=== PATIENT | female | born 1975 | race Caucasian/White ===

== ENCOUNTER 2022-11-12 01:12 | Day surgery (SDC) | payer OTHER, SELFPAY ==
[2022-11-10 09:58] VITALS: BMI 43.2
--- NOTE | 2022-11-10 10:25 | PC.NURSE ---
Report to the Outpatient Waiting Room, entrance under the green pavilion located off [facility], at time __1015 on date ___[id number]____. Planned Procedure Time: __1215 . Time changes happen often and if your time is changed the preop area will call you the afternoon before. - You and your visitor will be asked to self-screen and do not enter if you have any COVID symptoms. - A mask is optional within the hospital at this time. Patients may have clear liquids (water, carbonated beverages, clear teas, apple juice) until 3 hours prior to surgery with a maximum of 20 ounces. - No food from midnight until time of surgery Take the following medications with a SIP of water the morning of surgery: Prednisone, Pain pill if needed, antibiotic (if still current) DO NOT STOP ANY OF YOUR OTHER PRESCRIPTION MEDICATIONS PRIOR TO SURGERY ?EXCEPT THE FOLLOWING Medications to discontinue per physician Toradol Date to take last dose last taken on 11-04-22 (per patient) Please no make-up, nail azeri, hairspray, perfume, deodorant, or body powder the day of surgery. No jewelry (including any body piercings) or valuables the day of surgery, leave them at home. Please take a shower or bath the night before, or the morning of, surgery with an antibacterial soap. Wear comfortable, loose fitting clothing. Children are encouraged to wear pajamas. - Jewelry must be removed prior to entering the operating room. Rings and piercings that are not removed may be cut off. - The hospital will not accept responsibility for valuables. - Please leave all valuables, including medications, at home the day of surgery. If you are going home after surgery, a licensed certified driver examiner must drive you home. - NO public transportation without another adult if you receive anesthesia. - We recommend that an adult stay with you for 24 hours following discharge. - We also recommend that you do not drive, make important decision, drink alcoholic beverages, or take any drugs that were not prescribed by your health care provider for at least 24 hours after your discharge time. Follow any additional instructions given to you from your surgeon. If you or anyone in your household have experienced Covid symptoms in the past week, please notify your surgeon or the nurse liaison at the phone number below for possible testing. Telephone instructions given to ____Amy Porter and asked if any additional questions and then verbalized understanding. Patient advised to call surgeon office or pre surgery nurse liaison [phone] if any additional questions.
[2022-11-12] VITALS (8 sets, daily range): BP systolic 141–161; BP diastolic 68–87; PULSE 47–70; RESP 15–20; TEMP 36.6; O2SAT 98–100
--- NOTE | ~2022-11-12 | XR_ITS ---
EXAMINATION: XR fluoroscopy no charge DATE: 11/12/2022 11:28 INDICATION: Retrograde ureteral stent removal and stone removal TECHNIQUE: 3 fluoroscopic images of the abdomen and pelvis were obtained during procedure performed margaret Perdue. Radiologist was not present for the imaging or procedure. The amount of fluoroscopy luma e used during this procedure was 0.2 minutes. COMPARISON: None. FINDINGS: Initial images demonstrate a left internal ureteral stent in expected position with loops formed in t he expected locations of the bladder and left renal pelvis. Final image demonstrates a catheter and w analisa advanced into the left ureter. No stones identified. IMPRESSION: 1. Fluoroscopy utilized during urologic procedure. See procedure note for further detail. Reviewed, dictated and finalized at location A. IMPRESSION: 1. Fluoroscopy utilized during urologic procedure. See procedure note for furth er detail.
--- NOTE | 2022-11-12 06:17 | WPDHPUPDATE1 ---
History and Physical Update Update Date/Time: 11/12/22 06:17 History and Physical has been reviewed, including an updated exam of the patient. There are NO changes in the patient's condition. Risks, benefits, and alternatives have been discussed and questions answered. Patient agrees to proceed with procedure.
[2022-11-12] MEDS: LACTATED RINGERS 1,000 ML 30 ML IV CONT (09:55)
--- NOTE | 2022-11-12 10:05 | P.PNAN_ITS ---
Anes - Initial Pre Proc Eval Procedure: Operation Date: 11/12/22 11:15 Proposed Procedures p Cystoscopy, Left Ureteroscopy, Left Stone Extraction, Left Stent Exchange, Left Retrograde Pyelogram, Left Holmium Laser Lithotripsy - Rufino Perdue MD Date/Time: 11/12/22 10:05 Surgeon: Rufino Perdue MD Pre Op Diagnosis: Lt Ureteral Stone Patient Data Age: 47 Gender: F Height: 1.64 m Weight: 115.9 kg Allergies Allergy/AdvReac Type Severity Reaction Status Date / Time strawberry Allergy Severe Anaphylaxis Verified 11/12/22 09:39 adhesive tape AdvReac Unknown Blister Verified 11/12/22 09:39 azathioprine [From Imuran] AdvReac Unknown Vomiting Verified 11/12/22 09:39 Home Medications Medication Instructions Recorded Confirmed Type cefdinir 300 mg capsule 300 mg PO BID 11/10/22 11/12/22 History hydrocodone 5 mg-acetaminophen 325 1 tablet PO Q6H PRN Pain 11/10/22 11/12/22 History mg tablet hydroxychloroquine 200 mg tablet 400 mg PO DAILY 11/10/22 11/12/22 History ketorolac 10 mg tablet 10 mg PO Q6H PRN Pain 11/10/22 11/10/22 History lansoprazole 30 mg capsule,delayed 30 mg PO DAILY 11/10/22 11/12/22 History release olmesartan 20 mg tablet 20 mg PO DAILY 11/10/22 11/12/22 History ondansetron 4 mg disintegrating 4 mg translingual PRN PRN Nausea 11/10/22 11/12/22 History tablet prednisone 5 mg tablet 5 mg PO DAILY 11/10/22 11/12/22 History solifenacin 10 mg tablet 10 mg PO DAILY 11/10/22 11/12/22 History Patient hx anesthesia problems: none Family hx anesthesia problems: none Results Review: All pre-operative results and documents have been reviewed as part of the pre- operative evaluation. [facility] Past Medical History Medical History (Updated 11/12/22 @ 10:06 by Roberto Hernandez MD) Morbid obesity HUMERA (obstructive sleep apnea) Social History Social History Smoking packs per day: 1 Smoking cigarettes per day: 20.0 Years smoked: 20 Smoking pack-years: 20.00 Smoking status: Current every day smoker Tobacco type: cigarettes Second hand tobacco smoke exposure: Yes Alcohol intake: current Alcohol use details: 1 per year Substance use: never Substance use type: does not use Living arrangements: with family Spiritual care concerns: No Anes - Eval Final PreProcedure Day of Procedure 11/12/22 10:05 Patient weight: morbidly obese Heart: regular rate and rhythm Lungs: clear to auscultation Airway: Mallampati scale class II Neurological: alert and oriented Last oral intake: >/= 8 hours ASA classification: III Emergent: no Anesthetic plan: proceed Anesthesia type and monitoring: general LMA and standard monitoring Results Review: All pre-operative results and documents have been reviewed as part of the pre- operative evaluation. Informed Consent: The patient's anesthetic plan and its attendant risks and benefits were discussed with the patient/family/POA. Questions were solicited and answers provided to the satisfaction of the patient/family/POA.
[2022-11-12] MEDS: ceFAZolin 2 GM/D5W 50 ML 2 GM/50 ML BAG IVPB (10:58)
[2022-11-12] MEDS: KETOROLAC 30 MG/ML VIAL (*BKC) IV PUSH (11:18)
--- NOTE | 2022-11-12 11:20 | W.PM.PROC2 ---
Procedure Note - Detailed Date of Procedure 11/12/22 Pre-op Diagnosis Left Ureteral Stone Post-op Diagnosis Same Procedure Performed Cystoscopy, left ureteral stent removal, left ureteroscopy with stone extraction Surgeon Rufino Perdue MD Anesthesia General Description of Procedure Patient is brought to the operative suite where she has prepped draped in routine sterile fashion while in dorsal lithotomy position. 2% xylocaine jelly was introduced intraurethrally and general anesthesia was administered per the anesthesia department. Cystoscopy is undertaken with a 19 F rigid cystoscope. Tip of the indwelling stent is grasped and it was with ease. A 0.035 in glidewire was advanced in the left pelvis. The distal ureter dilated with an 8 F 10 F dilator. Ureteroscopy was undertaken with a short tapered semi-rigid ureteral scope. Her 5 mm stone is found in her left mid to distal ureter. It is extracted with a 1.9 F disposable stone basket with ease without the need for laser lithotripsy. I repeated ureteroscopy into the proximal ureter and saw no additional stones. Because of the ease of this manipulation and minimal apparent ureteral edema I opted not to replace her stent. Scopes and wires removed she was taken to the recovery having tolerated this well Drains No Packing No Pathology Yes Complications No immediate complications Condition Stable
[2022-11-12] MEDS: LIDOCAINE HCL 2% GEL UROJET 10 ML PKG MUCOUS MEM (11:21)
[2022-11-12] MEDS: ONDANSETRON INJ 4 MG/2 ML VIAL IV PUSH (12:09)
[2022-11-12] MEDS: oxyCODONE HCL (*CRX) 5 MG TAB IR PO (12:21)
== END 2022-11-12 13:07 | disposition home or self-care (01) ==
PROVIDERS: PCP Internal Medicine; Visit Provider Urology
PROC: (CPT 52352; principal; 2022-11-12 11:15)
DX: N20.1 Calculus of ureter (principal); G47.33 Obstructive sleep apnea (adult) (pediatric); E66.01 Morbid (severe) obesity due to excess calories; Z68.41 Body mass index [BMI] 40.0-44.9, adult; F17.210 Nicotine dependence, cigarettes, uncomplicated
CPT/HCPCS: 52352; 82365; 88300; 99199; A9270; C1769; J0690; J1100; J1885; J2250; J2405; J2704; J3010; J7120

== ENCOUNTER 2023-05-25 11:13 | Outpatient (CLI) | payer OTHER, SELFPAY ==
--- NOTE | ~2023-05-25 | XR_ITS ---
EXAM: XR abdomen/kub 1V DATE: 05/25/2023 11:30 HISTORY: LEFT URETERAL STONE . COMPARISON: X-ray fluoroscopy 11/12/2022. FINDINGS: Clear lung bases. Normal bowel gas pattern. No organomegaly. Punctate calcifications proje ct over the bilateral renal shadows. Mild degenerative changes in the spine. Bilateral hip osteoarthr itic arthritis. Mild osteitis pubis. IMPRESSION: Punctate calcification is project over the bilateral renal shadows, which may represent r enal calculi or artifact from bowel content. Reviewed, dictated and finalized at location K. OUT OPERATOR IMPRESSION: Punctate calcification is project over the bilateral renal shadows, which may represent renal calculi or artifact from bowel content.
== END 2023-05-25 11:14 | disposition home or self-care (01) ==
LOC: ANHIMG 11:17
PROVIDERS: PCP Internal Medicine; Visit Provider Urology
DX: N20.1 Calculus of ureter (principal)
CPT/HCPCS: 74018

== ENCOUNTER 2023-09-03 12:16 | Outpatient (CLI) | payer OTHER, SELFPAY ==
--- NOTE | ~2023-09-03 | CT_ITS ---
Non-contrast CT scan of the Abdomen and Pelvis Clinical indication: Left ureteral stone Technique: 2.5 mm axial scans were obtained through the abdomen and pelvis without intravenous or or al contrast. Dose reduction technique was used on this scan by utilizing automated exposure control a nd iterative reconstruction technique. The dose-length product (DLP) was 1081.93 mGy-cm. Findings: Images through the lung bases reveal no abnormalities. There are punctate bilateral nonobstructing renal stones. No ureteral stone or hydronephrosis on eith er side. The liver, spleen, pancreas, gallbladder, and adrenals appear normal. There is no aortic aneurysm. There is no evidence of bowel obstruction. Images through the pelvis were performed. There is no evidence of ascites or lymphadenopathy. Urinary bladder unremarkable. Patient is post hysterectomy. No pelvic mass seen. Impression: Punctate bilateral nonobstructing renal stones. No ureteral stone or hydronephrosis on either side. Reviewed, dictated and finalized at [facility]. Impression: Punctate bilateral nonobstructing renal stones. No ureteral stone or hydronephr osis on either side.
== END 2023-09-03 12:17 | disposition home or self-care (01) ==
LOC: ANHIMG 12:18
PROVIDERS: PCP Internal Medicine; Visit Provider Urology
DX: N20.1 Calculus of ureter (principal); N20.0 Calculus of kidney
CPT/HCPCS: 74176

== ENCOUNTER 2024-10-25 14:15 | Outpatient (CLI) | payer OTHER, SELFPAY ==
--- OUTSIDE RECORDS SUMMARY | 2024-10-25 14:26 | XMS_ITS | Clinical Summary ---
Author Organization [facility] Address [address] [place] [id number] Care Team Providers Care Splicing Technician Name Role Phone Paulino Souza MD Unavailable [phone] Lam Nicholson MD Primary Care Provi sriram Allergies Active Allergy Reactions Criticality Noted Date Comments Adhesive Tape-Silicones Blisters High 06/03/2015 Red and pulled off skin Azathioprine Nausea & Vomiting Low 07/16/2017 [place] Hives Medium 05/30/2015 Itching and hives Medications cholecalciferol (VITAMIN D-3) 5,000 unit tablet Take 1 tablet (5,000 Units total) by mouth daily Active lansoprazole (PREVACID) 30 mg capsule Take 1 capsule (30 mg total) by mouth daily Active ibuprofen (ADVIL,MOTRIN) 400 mg tabletIndications: stop 5 days before surgery Take 1 tablet (400 mg total) by mouth every 6 (six) hours as needed for pain Active traMADol (ULTRAM) 50 mg tablet Take 1 tablet (50 mg total) by mouth 01/07/20 Active harsobhmpgdb-Mi-iw on-minerals tablet Take by mouth Active golimumab (Simponi ARIA) 12.5 mg/mL solution Infuse into a venous catheter Active olmesartan (BENICAR) 20 mg tablet Take 1 tablet (20 mg total) by mouth daily Active rosuvastatin (CRESTOR) 5 mg tablet Take 1 tablet (5 mg total) by mouth daily 06/06/19 25 Active ondansetron ODT (ZOFRAN-ODT) 4 mg disintegrating tablet Take 1 tablet (4 mg total) by mouth daily 30 tablet 5 08/29/19 25 Active triamcinolone (KENALOG) 0.1 % cream Apply topically 2 (two) times a day as needed 025 Discontin ued(Patie nt Reported) predniSONE (DELTASONE) 1 mg tablet Take 2 tablets (2 mg) by mouth daily 06/27/19 25 025 Discontin ued(Patie nt Reported) Active Problems Problem Noted Date Diagnosed Date Mixed hyperlipidemia 06/26/2024 Assessment & Plan (06/26/2024 10:22 AM CDT): Orders: Lipid panel; Future Morbid obesity with BMI of 45.0-49.9, adult 09/2024 Assessment & Plan (06/26/2024 10:22 AM CDT): She would benefit from weight loss and hopefully that can improve once she is off prednisone. Vitamin D deficiency 06/26/2024 Assessment & Plan (06/26/2024 10:22 AM CDT): History of vitamin-D deficiency. Orders: Vitamin D 25 hydroxy; Future Sinus bradycardia 10/30/2022 Assessment & Plan (10/30/2022 1:47 PM CDT): The patient has asymptomatic sinus bradycardia with with a normal echocardiogram. No further cardiac evaluation is indicated at this time. Primary hypertension 10/30/2022 Assessment & Plan (06/26/2024 10:22 AM CDT): Orders: Comprehensive metabolic panel; Future Assessment & Plan (10/30/2022 1:47 PM CDT): Controlled. Continue Benicar. Ureteral stone 10/29/2022 Renal colic on left side 10/22/2022 Hydronephrosis concurrent wi th and due to calculi of kidney and ureter 10/22/2022 Rheumatoid arthritis of mult iple sites without rheumatoid factor 10/16/2016 Assessment & Plan (06/26/2024 10:22 AM CDT): High risk medication use 10/16/2016 Leukocytosis 10/16/2016 Assessment & Plan (06/26/2024 10:22 AM CDT): Mild leukocytosis is likely secondary to chronic prednisone use. No signs of infection at this time. Cardiovascular disease 12/15/2011 Overview (06/24/2016): CIRCULATORY DISEASE NEC Resolved Problems Problem Noted Date Diagnosed Date Resolved Date Hyperglycemia 06/26/2024 09/29/2024 Assessment & Plan (06/26/2024 10:22 AM CDT): She does have a history of hyperglycemia seen on prior labs so I will check A1c. Orders: Hemoglobin A1c; Future Palpitations 06/26/2024 09/29/2024 Assessment & Plan (06/26/2024 10:22 AM CDT): She reports occasional palpitations so I will check magnesium level. Orders: Magnesium; Future Dizziness 05/07/2023 12/31/2023 Assessment & Plan (05/07/2023 12:13 PM SECURITY SERVICES MANAGER): Probably vertigo. Recommend 14 day Bardy D monitor to assess for arrhythmia Rec: meclizine 25 mg tid. Pyelonephritis 10/22/2022 12/31/2023 Gram negative sepsis 10/22/2022 024 Right thigh pain 10/16/2016 12/31/2023 Sprain of anterior talofibul ar ligament of right ankle 09/15/2016 12/31/2023 Contusion of ankle 09/15/2016 BMI 40.0-44.9, adult 09/15/2016 024 Morbid obesity due to excess calories 09/15/2016 06/26/2024 Rheumatoid arthritis 03/07/2013 024 Overview (06/26/2016): Rheumatoid Arthritis Drug therapy finding 03/07/2013 024 Overview (06/27/2016): Therapeutic Drug Monitoring Encounters Date Type Department Care Team Description 10/06/2024 7:15 AM CDT Lab [facility] [address] [place] [address] Arthralgia, unspecified joint 10/06/2024 Results Follow-Up [facility] Primary Care at [address] [place] [address] Katie Roche, NOHEMI Cortisol 10/02/2024 Results Follow-Up [facility] Rheumatology [address] [place] [address] Office [address] [place] [phone] Laurence Carranza NP XR Sacroiliac Joints Less than 3 Views, Erythrocyte sedimentation rate, CRP (acute phase), Additional followed-up results: 4 09/29/2024 10:40 AM CDT Lab [facility] [address] [place] [facility] [place] [place] [address] Rheumatoid arthritis 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) 09/29/2024 9:53 AM CDT - 09/29/2024 11:59 PM CDT Hospital Encounter [facility] Imaging [address] [place] [id number] Rheumatoid arthritis 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) Discharge Disposition: Discharge to home or self care 09/29/2024 9:00 AM CDT Office Visit [facility] Rheumatology [address] [facility] Office Building [address] [place] [phone] Laurence Carranza NP Rheumatoid arthritis 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) (Primary Dx); High risk medication use 09/26/2024 Telephone [facility] Gastroenterology at [address] [place] [phone] Krissy Johnson GI Appointment Reschedule 09/25/2024 9:30 AM CDT Infusion [facility] Infusion Therapy [address] [place] [address] [address] [place] [address] Rheumatoid arthritis of multiple sites without rheumatoid factor (HCC) (Primary Dx) 08/06/2024 Results Follow-Up [facility] Primary Care at [address] [place] [address] Lam Nicholson MD Dexa Axial Skeleton Bone Density 1 Or 2 Site 08/04/2024 7:36 AM CDT - 08/04/2024 11:59 PM CDT Hospital Encounter [facility] Center [address] [place] [address] Postmenopausal estrogen deficiency Discharge Disposition: Discharge to home or self care 07/28/2024 9:30 AM CDT Infusion [facility] Infusion Therapy [address] [facility] [address] [place] [address] Rheumatoid arthritis of multiple sites without rheumatoid factor (HCC) (Primary Dx) from Last 3 Months Immunizations Immunization Administration Dates Next Due Influenza, Quadrivalent, Spl it, Preservative Free, Intramuscular 12/30/2018 Influenza, Trivalent, IM ([facility]isha) 01/10/2016 Surgical History Surgery Date Site/Laterality Comments TONSILLECTOMY Tonsillectomy APPENDECTOMY 03/22/1999 - 03/21/2000 Appendectomy VAGINAL HYSTERECTOMY 03/22/2001 - 03/21/2002 Hysterectomy, vaginal OTHER SURGICAL HISTORY 03/22/1999 - 03/21/2000 laparoscopic with appendectomy PARTIAL HYSTERECTOMY 03/22/2001 - 03/21/2002 Partial hysterectomy OTHER SURGICAL HISTORY 03/22/2005 - 03/21/2006 excision of ganglian cyst on left wrist TONSILLECTOMY 03/22/1980 - 03/21/1981 Tonsillectomy PORTACATH PLACEMENT Removal and placement Right Upper Chest FOOT SURGERY 06/20/2017 - 07/19/2017 Left HYSTERECTOMY 03/22/2001 - 03/21/2002 Medical History Medical History Date Comments Hypertension Hypertension Hyperlipidemia Hyperlipidemia Gastroesophageal reflux disease GERD Hx Other Medical rheumatoid arth ritis; Comments: VENANCIO 10/10/2013 - Hypertension Hypertension Hx Other Medical hyperlipidemia Hx Other Medical partial hystere ctomy Hx Other Medical ganglion cyst r emoval Hx Other Medical herniated lumba r disc PONV (postoperative nausea and vomiting) Rheumatoid arthritis (HCC) Rheum atoid arthritis Smoking Current smoker Family History Medical History Relation Name Comments Diabetes Maternal Grandfather Diabete s mellitus; Heart attack Maternal Grandfather Myocard ial infarction; Hypertension Mother Hypertension; Hypertension Other 1 Family history of Hypertension; Other Other 2 Family history of RA - mother; Lung cancer Paternal Grandmother Cancer, lung; Throat cancer Paternal Grandmother Cancer , throat; Breast cancer Neg Hx Endometrial cancer Neg Hx Ovarian cancer Neg Hx Thyroid cancer Neg Hx Relation Name Status Comments Maternal Grandfather Mother Other 1 Other 2 Paternal Grandmother Social History Tobacco Use Types Packs/Day Years Used Date Smoking Tobacco: Every Day Cigarettes 0.5 20 Smokeless Tobacco: Never Tobacco Cessation:Ready to Q uit: Not Asked; Counseling Given: Not Answered Alcohol Use Standard Drinks/Week Comments Not Currently 0 (1 standard drink = 0.6 oz pur e alcohol) very rarely AUDIT-C Answer Date Recorded Q1: How often do you have a drink containing alc ohol? Monthly or less 10/22/2022 Q2: How many drinks containi ng alcohol do you have on a typical day when you are drinking? 1 or 2 10/22/2022 Q3: How often do you have si x or more drinks on one occasion? Never 10/22/2022 PHQ-2 Answer Date Recorded PHQ-2 Score 1 12/30/2018 Personal Safety Answer Date Recorded Have you ever been in or are you currently in a harmful physical or emotional relationship or is someone making you feel afraid or unsafe? Denies 10/22/2022 Comments No Sex and Gender Information Value Date Recorded Sex Assigned at Not on file Legal Sex Female 7:05 PM SECURITY SERVICES MANAGER Gender Identity Female 04/03/2020 10:14 AM SECURITY SERVICES MANAGER Sexual Orientation Straight 11/16/2023 2: 11 PM CDT Occupation Industry Job Start Date Job End Date rn Not on file Not on file Not on file Obstetrics History Para Term AB IAB SAB Ectopic Multiple Livin g Live Births 2 2 2 Date Outcome GA Total Labor Labor/2nd/3rd Weight Sex Type Anes PTL Jhoana A1 A5 Name Clin Term Term Last Filed Vital Signs Vital Sign Reading Time Taken Comments Blood Pressure 161/88 09/29/2024 9:07 AM CDT Pulse 58 09/29/2024 9:07 AM CDT Temperature 36.7 C (98.1 F) 09/29/2024 9:07 AM CDT Respiratory Rate 16 09/25/2024 9:25 AM CDT Oxygen Saturation 99% 09/29/2024 9:07 AM CDT Inhaled Oxygen Concentration - - Weight 122.7 kg (270 lb 8 oz) 09/29/2024 9:07 AM CDT Height 161 cm (5' 3.39) 09/29/2024 9:07 AM CDT Body Mass Index 47.33 09/29/2024 9:07 AM CDT Plan of Treatment Health Maintenance Due Date Last Done Comments Colon Cancer Screening-Colonoscopy 1974 DTaP/Tdap/Td Vaccine (1 - Tdap) 1985 Hepatitis B Screening 02/02/1992 Regular Well Visit/Exam 18-64 02/02/1992 Pneumococcal vaccine <65 (2 of 2 - PCV) 01/06/2012 01/05/2011 Depression Screening 12/30/2019 12/29/2018 Covid-19 Vaccine (5 - 2023-2 5 season) 2023 03/28/2021, 04/29/2020, 04/09/2020, Additional history exists Zoster Vaccine (1 of 2) 02/02/2024 Influenza Vaccine (#1) 2024 3, 01/01/2023, 01/02/2022, Additional history exists Breast Cancer Screening-Mammogram 01/30/2025 01/31/2024, 03/26/2022, 01/22/2021, Additional history exists Hepatitis C Screening Completed 02/05/2023 , 03/19/2022, 01/17/2020, Additional history exists Medical Devices Implanted Type Area Support Services Coordinator Device Identifier Shelf Expiration Date Model / Serial / Lot [employer] Jillian Contour Vl 6fr 22-30cm Taper Tip Bladder Albin Low Profile Stiff Latex Free [id number] - [id number] Implanted:Qty: 1 on 10/22/2022 by Rosanne Loza MD at [facility] Stent Left: Ureter [employer] Jillian [id number] 08/23/2026 [id number] / / [id number] Set Implant [employer] [place]ock Drill Guide Punch Tap Achilles Pack - [id number] Implanted:Qty: 1 on 07/16/2017 by Gracia Lang DPM at [facility] Left: Heel [employer] 10/19/2018 [id number] / / [id number] Procedures Procedure Name Priority Date/Time Associated Diagnosis Comments CORTISOL Routine 10/06/2024 7:25 AM CDT Arthralgia, unspecified joint EGFR Routine 09/29/2024 10:44 AM CDT Rheumatoid arthritis 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) DIFFERENTIAL AUTO Routine 09/29/2024 10: 44 AM CDT Rheumatoid arthritis 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) CBC WITH AUTO DIFFERENTIAL Routine 09/29/2024 10:44 AM CDT Rheumatoid arthritis 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) COMPREHENSIVE METABOLIC PANEL Routine 09/29/2024 10:44 AM CDT Rheumatoid arthritis 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) CRP (ACUTE PHASE) Routine 09/29/2024 10: 44 AM CDT Rheumatoid arthritis 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) ERYTHROCYTE SEDIMENTATION RATE Routine 09/29/2024 10:44 AM CDT Rheumatoid arthritis 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) XR SACROILIAC JOINTS LESS THAN 3 VIEWS Schedule Routine, Read Routine (OP Routine) 09/29/2024 10:19 AM CDT Rheumatoid arthritis 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) DEXA AXIAL SKELETON BONE DENSITY 1 OR MORE SITES Schedule Routine, Read Routine (OP Routine) 08/04/2024 7:58 AM CDT Postmenopausal estrogen deficiency SCREENING MAMMOGRAM BILATERAL W TURNER Schedule Routine, Read Routine (OP Routine) 01/31/2024 9:33 AM SECURITY SERVICES MANAGER Screening mammogram, encounter for HEPATITIS C RNA, QUANTITATIVE, PCR Routine 02/05/2023 10:13 AM SECURITY SERVICES MANAGER from Last 3 Months or Most Recently Relevant to Health Maintenance Results * Cortisol (10/06/2024 7:25 AM CDT) Cortisol 10.5 4.8 - 19.5 mcg/dl Comment: Interpretive Data Normal Range: 4.8 - 19.5 mcg/dL; Evening: Half of morning value. This analyte undergoes marked diurnal variation. Ranges indicated apply to morning specimens. Current interpretive data was last revised 2018. Testing performed by: [facility], [address] [place] [address]., [id number] Blood 10/06/2024 7:25 AM CDT 10/06/2024 9:21 AM CDT us Lam Nicholson MD LAB BLOOD ORDERABLE S Final Result Performing Organization Address City/State/ZIP [place] Phone Number XANDER LANDIN RANCHO [place] 1 [facility] Department [place] [address] * eGFR (09/29/2024 10:44 AM CDT) eGFR >90 >=60 mL/min/1. 73 m2 Comment: Interpretive Data Reference Interval Normal >/= 90 mL/min/1.73m2 Mildly decreased* 60 - 89 mL/min/1.73m2 Mildly to moderately decreased 45 - 59 mL/min/1.73m2 Moderately to severely decreased 30 - 44 mL/min/1.73m2 Severely decreased 15 - 29 mL/min/1.73m2 Kidney Failure < 15 mL/min/1.73m2 *Relative to young adult level Estimated glomerular filtration rate is determined by the 2020 CKD-EPI equation recommended by the National Kidney Foundation (A Unifying Approach to GFR Estimation: Recommendations of the NKF-ASK Task Force on Reassessing the Inclusion of Race in Diagnosing Kidney Disease, JASN 2020). The CKD-EPI equation should not be used for patients with unstable renal function and has not been validated in children and those over 70. Current interpretive data was last reviewed 2021. Blood 09/29/2024 10:4 4 AM CDT 09/29/2024 11:01 AM CDT us Laurence Carranza NP LAB BLOOD ORDERAB[place] [address] [address] [place] [address] * (ABNORMAL) Differential, auto (09/29/2024 10:44 AM CDT) Neutrophil abs 4.68 1.50 - 6.50 K/cumm Imm gran abs 0.03 0.00 - 0.10 K/cumm [facility] Lymphocyte abs 4.42(H) 0.80 - 3.30 K/cumm [facility] Monocyte abs 0.71 0.20 - 0.80 K/cumm [facility] Eosinophil abs 0.20 0.00 - 0.50 K/cumm [facility] Basophil abs 0.07 0.00 - 0.10 K/cumm [facility] Neutrophil pct 46.3 % X[facility]ER BHAGATCH Comment: Interpretive Data Percent cell count reference ranges are not reported, since discordance with absolute values may lead to misinterpretation of CBC data. Current Interpretive Data was last revised on 2017. Imm gran pct 0.3 % XANDER BA Comment: Interpretive Data Percent cell count reference ranges are not reported, since discordance with absolute values may lead to misinterpretation of CBC data. Current Interpretive Data was last revised on 2017. Lymphocyte pct 43.7 % X[facility]ER LIEBERMANCH Comment: Interpretive Data Percent cell count reference ranges are not reported, since discordance with absolute values may lead to misinterpretation of CBC data. Current Interpretive Data was last revised on 2017. Monocyte pct 7.0 % XANDER BA Comment: Interpretive Data Percent cell count reference ranges are not reported, since discordance with absolute values may lead to misinterpretation of CBC data. Current Interpretive Data was last revised on 2017. Eosinophil pct 2.0 % XANDER BA Comment: Interpretive Data Percent cell count reference ranges are not reported, since discordance with absolute values may lead to misinterpretation of CBC data. Current Interpretive Data was last revised on 2017. Basophil pct 0.7 % [facility] Comment: Interpretive Data Percent cell count reference ranges are not reported, since discordance with absolute values may lead to misinterpretation of CBC data. Current Interpretive Data was last revised on 2017. Blood 09/29/2024 10:4 4 AM CDT 09/29/2024 11:01 AM CDT Laurence Carranza OTHER SPATIAL SCIENTIST LAB BLOOD ORDER[place] [address] [facility] [place], [place] [id number] * (ABNORMAL) CBC with auto differential (09/29/2024 10:44 AM CDT) WBC 10.11(H) 3.80 - 9.90 K/cumm Hgb 14.9 11.9 - 15.5 g/dL [facility] Hct 43.1 35.6 - 45.5 % [facility] Plt 282 150 - 400 K/cumm [facility] MPV 10.8 9.1 - 12.3 fL [facility] RBC 4.62 3.90 - 5.20 M/cumm [facility] MCV 93.3 81.3 - 96.4 fL [facility] MCH 32.3 27.1 - 33.3 pg [facility] MCHC 34.6 32.3 - 35.7 g/dL [facility] RDW CV 13.1 11.1 - 14.9 % [facility] RDW SD 44.7 35.7 - 48.1 fL [facility] NRBC abs 0.00 0.00 - 0.01 K/cumm [facility] Blood 09/29/2024 10:4 4 AM CDT 09/29/2024 11:01 AM CDT Laurence Carranza OTHER SPATIAL SCIENTIST LAB BLOOD ORDERABLES [place] [address] [facility] [place], [place] [phone] * Erythrocyte sedimentation rate (09/29/2024 10:44 AM CDT) Pathologist [facility] Erythrocyte sedimentation rate 13 1 - 30 mm/hr Blood 09/29/2024 10:4 4 AM CDT 09/29/2024 11:01 AM CDT us Laurence Carranza OTHER SPATIAL SCIENTIST LAB BLOOD ORDERABLES Fi nal Result Performing Organization Address [facility] de Phone Number [facility] [address] [employer] [facility] [place] [address] * CRP (acute phase) (09/29/2024 10:44 AM CDT) [facility] CRP <3.0 <=10.0 mg/L Blood 09/29/2024 10:4 4 AM CDT 09/29/2024 11:01 AM CDT Laurence Carranza OTHER SPATIAL SCIENTIST LAB BLOOD ORDERABLES Fi nal Result Performing Organization Address [facility] de Phone Number XANDER LIEBERMANCH [address] [facility] [place] [address] * (ABNORMAL) Comprehensive metabolic panel (09/29/2024 10:44 AM CDT) [facility] Sodium 140 135 - 145 mmol/L Potassium, pl 4.7 3.3 - 4.9 mmol/L [facility] Comment:Hemolyzed; result ma y be falsely elevated. Chloride 105 97 - 110 mmol/L [facility] CO2 27 22 - 32 mmol/L [facility] Anion gap 8 2 - 15 mmol/L [facility] BUN 14 6 - 25 mg/dL [facility] Creatinine 0.58(L) 0.60 - 1.10 mg/dL [facility] Glucose 90 70 - 199 mg/dL [facility] Comment: Interpretive Data Fasting glucose >/= 126 mg/dl is diagnostic for diabetes. Fasting is defined as no caloric intake for at least 8 hours. Fasting glucose between 100 mg/dl to 125 mg/dl is diagnostic of prediabetes. In a patient with classic symptoms of hyperglycemia or hyperglycemic crisis, a random glucose >/= 200 mg/dl is diagnostic for diabetes. In the absence of unequivocal hyperglycemia, results should be confirmed by repeat testing. The classification and Diagnosis of Diabetes Diabetes Care 202; 46: S19-S40. Current interpretive data was last revised 2022. Calcium 9.3 8.5 - 10.3 mg/dL [facility] Bilirubin, total 0.2 0.1 - 1.2 mg/dL [facility] Protein, pl 6.6 6.5 - 8.5 g/dL [facility] Albumin 4.1 3.5 - 5.0 g/dL [facility] Alk phos 67 40 - 130 Units/L [facility] ALT 35 7 - 45 Units/L [facility] AST 34 10 - 45 Units/L [facility] Comment:Hemolyzed; result ma y be falsely elevated. Blood 09/29/2024 10:4 4 AM CDT 09/29/2024 11:01 AM CDT us Laurence Carranza NP LAB BLOOD ORDERABLES nal Result X[facility]ER BHAGATCH [address] [facility]. [place] [address] * XR Sacroiliac Joints Less than 3 Views (09/29/2024 10:19 AM CDT) Anatomical Region Laterality Modality Pelvis, Body N/A Computed Radiogr aphy 09/29/2024 11:0 2 AM CDT Impressions 09/29/2024 11:02 AM CDT Normal sacroiliac joint radiographs. Electronically signed by: Tolu Domingo M.D. Narrative 09/29/2024 11:02 AM CDT EXAMINATION: XR SACROILIAC JOINTS LESS THAN 3 VIEWS HISTORY: Sacroiliac pain FINDINGS: 3 views of the sacroiliac joints were performed with comparison made to a CT dated 10/21/2022. Lower lumbar spine degenerative disc disease is partially imaged. The sacroiliac joints appear normal. There is no erosion or evidence of ankylosis. Procedure Note Tolu Domingo MD PhD - 09/29/2024 EXAMINATION: XR SACROILIAC JOINTS LESS THAN 3 VIEWS HISTORY: Sacroiliac pain FINDINGS: 3 views of the sacroiliac joints were performed with comparison made to a CT dated 10/21/2022. Lower lumbar spine degenerative disc disease is partially imaged. The sacroiliac joints appear normal. There is no erosion or evidence of ankylosis. IMPRESSION: Normal sacroiliac joint radiographs. Electronically signed by: Tolu Domingo M.D. Laurence Carranza NP IMG XR PROCEDURES Final Result * Dexa Axial Skeleton Bone Density 1 Or 2 Site (08/04/2024 7:58 AM CDT) Anatomical Region Laterality Modality Body N/A Other 08/04/2024 8:50 PM CDT Narrative 08/04/2024 8:51 PM CDT EXAM DESCRIPTION: DEXA AXIAL SKELETON BONE DENSITY 1 OR MORE SITES REASON FOR STUDY: 49 y/o year old F with given history of: screening osteoporosis Postmenopausal Support Services Coordinator/Model: Sitemasher Discovery SL (S/N [id number]) Facility LSC value of 0.022 for the AP spine, 0.027 for the femur, and 0.023 for the forearm. CLINICAL INFORMATION: Current height: 64 inches Maximum height: 65 inches Weight: 264 pounds Risk factors: Postmenopausal, smoking history, steroid use, rheumatoid arthritis COMPARISON: 06/17/2011 Dissimilar scan types or analysis methods precludes assessment for calculating a significant change. FINDINGS: AP LUMBAR SPINE L1-L4: Total BMD is 1.130 g/cm2 T-score is 0.8 LEFT HIP: Total BMD is 1.090 g/cm2 T-score is 1.2 Femoral neck BMD is 0.888 g/cm2 T-score is 0.4 FRAX: FRAX not reported due to T-scores of hip, femoral neck and/or spine being at or above -1.0 (Normal). IMPRESSION: Normal bone mass. REFERENCE: Bone mineral density: T-Score: Normal (T-score above or = -1.0) Low bone mass (T-score between -1.0 and -2.5) replaces the previously used term osteopenia Osteoporosis (T-score = or below -2.5) Z-Score: Within the expected range for age (Z-score above -2.0) Below the expected range for age (Z-score is -2.0 or below) Please see below follow up recommendations. Medical evaluation for secondary causes of low bone mineral density may be appropriate. FRAX is a World Health Organization validated fracture risk assessment tool that calculates a person's 10 year probability of a major osteoporosis related fracture and hip fracture. According to the National Osteoporosis Foundation guidelines, postmenopausal women and men age 50 or older with low bone mass and a 10 year probability of a major osteoporosis related fracture = or greater than 20% or a 10 year probability of a hip fracture = or greater than 3% should be considered for pharmacological treatment for the prevention of osteoporosis. For further information, including treatment recommendations, please refer to the 2019 ISCD Official Positions (http://www.iscd.org) and the NOF's Clinician's Guide to Prevention and Treatment of Osteoporosis (http://www.nof.org/professionals/clinical-guidelines) THIS IS AN ELECTRONICALLY VERIFIED FINAL REPORT 08/04/2024 8:51 PM - Electronically signed by Willard Messer M.D. MF: [id number] Report ID: [id number] Reading Location: [place] [address] Procedure Note Willard Messer MD - 08/04/2024 EXAM DESCRIPTION: DEXA AXIAL SKELETON BONE DENSITY 1 OR MORE SITES REASON FOR STUDY: 49 y/o year old F with given history of: screening osteoporosis Postmenopausal Support Services Coordinator/Model: CCS Environmental SL (S/N [id number]) Facility LSC value of 0.022 for the AP spine, 0.027 for the femur, and0.023 for the forearm. CLINICAL INFORMATION: Current height: 64 inches Maximum height: 65 inches Weight: 264 pounds Risk factors: Postmenopausal, smoking history, steroid use, rheumatoid arthritis COMPARISON: 06/17/2011 Dissimilar scan types or analysis methods precludes assessment for calculating a significant change. FINDINGS: AP LUMBAR SPINE L1-L4: Total BMD is 1.130 g/cm2 T-score is 0.8 LEFT HIP: Total BMD is 1.090 g/cm2 T-score is 1.2 Femoral neck BMD is 0.888 g/cm2 T-score is 0.4 FRAX: FRAX not reported due to T-scores of hip, femoral neck and/or spine beingat or above -1.0 (Normal). IMPRESSION: Normal bone mass. REFERENCE: Bone mineral density: T-Score: Normal (T-score above or = -1.0) Low bone mass (T-score between -1.0 and -2.5) replaces thepreviously used term osteopenia Osteoporosis (T-score = or below -2.5) Z-Score: Within the expected range for age (Z-score above -2.0) Below the expected range for age (Z-score is -2.0 or below) Please see below follow up recommendations. Medical evaluation forsecondary causes of low bone mineral density may be appropriate. FRAX is a World Health Organization validated fracture risk assessmenttool that calculates a person's 10 year probability of a major osteoporosisrelated fracture and hip fracture. According to the National OsteoporosisFoundation guidelines, postmenopausal women and men age 50 or older with low bonemass and a 10 year probability of a major osteoporosis related fracture = or greater than 20% or a 10 year probability of a hip fracture = or greaterthan 3% should be considered for pharmacological treatment for the preventionof osteoporosis. For further information, including treatment recommendations, please referto the 2019 ISCD Official Positions (http://www.iscd.org) and the NOF's Clinician's Guide to Prevention and Treatment of Osteoporosis (http://www.nof.org/professionals/clinical-guidelines) THIS IS AN ELECTRONICALLY VERIFIED FINAL REPORT 08/04/2024 8:51 PM - Electronically signed by Willard Messer M.D. MF: [id number] Report ID: [id number] Reading Location: [place] [address] Lam Nicholson MD IM DXA PROCEDURES Final Result * Screening Mammogram Bilateral W Turner (01/31/2024 9:33 AM SECURITY SERVICES MANAGER) Anatomical Region Laterality Modality Breast Bilateral Mammography 01/31/2024 11:1 0 AM SECURITY SERVICES MANAGER Impressions 01/31/2024 11:10 AM SECURITY SERVICES MANAGER No evidence of malignancy in either breast. Management of any palpable abnormality should be based on clinical grounds. FINAL ASSESSMENT: BI-RADS Category 1: Negative. RECOMMENDATION: Recommend return for annual screening mammogram in 12 months. Electronically signed by: Nicky Ramirez M.D. Narrative 01/31/2024 11:10 AM SECURITY SERVICES MANAGER EXAMINATION: BILATERAL SCREENING MAMMOGRAM COMPARISON: Multiple prior exams dating back to 06/24/2010 TECHNIQUE: Full-field 2D and digital breast tomosynthesis (DBT) images were obtained. CAD was utilized. BREAST PARENCHYMAL COMPOSITION: There are scattered areas of fibroglandular density. FINDINGS: There is no suspicious mass, calcification, or distortion in either breast. us Self Screening Mammogram IMG MAMMO PROCEDURES Fi nal Result * Hepatitis C (HCV) RNA PCR, quantitative Blood (02/05/2023 10:13 AM SECURITY SERVICES MANAGER) HCV RNA result Not Detected [facility] (JESS) Comment: The quantifiable range of this assay is 15 IU/mL to 100,000,000 IU/mL (1.18 log IU/mL to 8.00 log IU/mL). Testing was performed by the [employer]IG[employer] 6800 HCV Test ([employer] Testing performed at [facility] Current Interpretive Data was last revised on 2020 Testing performed by: [facility], [address] [facility], [place]., [address] Blood 02/05/2023 10:1 3 AM SECURITY SERVICES MANAGER 02/05/2023 5:52 PM SECURITY SERVICES MANAGER us Chema Smith MD LAB MICROBIOLOGY - GENERAL ORD ERABLES Final Result [facility] L[facility]DIN (JESS) [address] [facility] Department [place] [address] from Last 3 Months or Most Recently Relevant to Health Maintenance Insurance [facility] [id number] [facility] [id number] Advance Directives For more information, please contact: [phone] * Full Code (Latest Code Status on File) Date Activated Date Inactivated Comments 12/30/2018 1:41 AM 12/30/2018 10:46 PM * Full Code Date Activated Date Inactivated Comments 07/16/2017 3:40 PM 07/16/2017 6:30 PM Care Teams Splicing Technician Relationship Specialty Start Date End Date Lam Nicholson MD [address] [facility] [address] [place] [address] PCP - General Family Practice 06/26/24 Paulino Souza MD Consulting Physician Cardiovascular Disease 10/24/22
--- OUTSIDE RECORDS SUMMARY | 2024-10-25 14:26 | XMS_ITS | Clinical Summary ---
Author Organization [facility] Address [address] [place] [address] Care Team Providers Care Dyehouse Worker Name Role Phone Chuckie Blue MD Primary Care Provider [phone] Source Comments [facility],non-owned Affiliates and Associated Physician Practices is amultiple site organization consisting of ambulatory clinics and hospital sitesin [place], [place], [place] and [place]. This disclosure is being madepursuant to the Care Everywhere program and may not contain all information available regarding this patient. Last updated 17.[facility] Allergies Active Allergy Reactions Criticality Noted Date Comments Steve Inhibitors Cough Medium 05/06/2015 Adhesive Sensitivity Urticaria High 06/03/2015 Red and pulled off skin Red and pulled off skin Azathioprine Nausea and/or Vomiting Low 07/16/2017 Codeine Psychiatric Medium 03/29/2017 Hmg-Coa-R Inhibitors Other 10/03/2015 [place] Urticaria Medium 05/30/2015 Itching and hives Itching and hives Medications * Be aware that medications may not be up to date on this document. Alwaysverify current medications with the patient. lansoprazole (PREVACID) 30 MG capsule Take 30 mg by mouth daily before breakfast Active olmesartan (BENICAR) 20 MG tablet Take 20 mg by mouth once daily Active vitamin D3 (CHOLECACIFEROL ) 5000 UNITS Take 5,000 Units by mouth once daily Active traMADol (ULTRAM) 50 MG tablet Take 1 tablet by mouth every 6 hours 8 Active hydroxychloroqu ine (PLAQUENIL) 200 MG tablet Take 400 mg by mouth once daily 9 Active ibuprofen (MOTRIN) 400 MG tablet Take 400 mg by mouth as needed Active ondansetron, disintegrating, (ZOFRAN ODT) 4 MG tablet Take 1 tablet by mouth once daily 1 9 Active PROAIR HFA 108 (90 Base) MCG/ACT inhaler Inhale 2 puffs by mouth every 4 hours as needed 11 9 Active Multiple Vitamins-Minera ls (ONE DAILY CALCIUM/IRON) TABS Active ondansetron (ZOFRAN) 4 MG tablet Take 4 mg by mouth Active predniSONE (DELTASONE) 2.5 MG tablet Take 2.5 mg by mouth once daily Taper 7.5mg this week, 5mg next week, then 2.5 mg the following Active loratadine (CLARITIN) 10 MG tablet Take 10 mg by mouth once daily as needed Active hydroCHLOROthia zide (HYDRODIURIL) 12.5 MG Take 12.5 mg by mouth once daily 0 Active fluconazole (DIFLUCAN) 150 MG tablet TAKE 1 TABLET BY MOUTH ONCE DAILY FOR 2 DAYS 0 Active diclofenac sodium EC (VOLTAREN) 75 MG tablet Take 75 mg by mouth 2 times daily Active clobetasol (TEMOVATE) 0.05 % ointment 1 Active neomycin-polymy daniel-dexameth (MAXITROL) ophthalmic suspension INSTILL 1 DROP INTO RIGHT EYE 4 TIMES DAILY FOR 7 DAYS THEN STOP 1 Active amoxicillin-cla vulanate (AUGMENTIN) 875-125 MG tablet TAKE 1 TABLET BY MOUTH TWICE DAILY FOR 7 DAYS THEN STOP 1 Active golimumab (SIMPONI ARIA) 50 MG/4ML injection Active gabapentin (NEURONTIN) 100 MG capsule TAKE 1 TO 2 CAPSULES BY MOUTH AT NIGHT FOR SLEEP 1 Active Active Problems Patient Care Coordination No te Formatting of this note migh t be different from the original. Pt needs a 1 inch right angle needle for port access. 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 02/08/2018 Rheumatoid arthritis 08/02/2017 Family History Medical History Relation Name Comments Diabetes Maternal Grandfather Hypercholesterolemia Maternal Grandfather OR Maternal Grandfather Heart Disease Maternal Grandmother Arthritis - Rheumatoid Mother Hypertension Mother Cancer Paternal Grandmother Hypertension Sister 2 Other Sister 3 ITP Relation Name Status Comments Father Alive Maternal Grandfather Maternal Grandmother Mother Alive Paternal Grandmother Sister 1 Alive Sister 2 Sister 3 Social History Tobacco Use Types Packs/Day Years Used Date Smoking Tobacco: Every Day Cigarettes 0.5 20 Smokeless Tobacco: Never Tobacco Cessation:Ready to Q uit: No; Counseling Given: Yes Alcohol Use Standard Drinks/Week Comments No 0 (1 standard drink = 0.6 oz pur e alcohol) PHQ-2 Answer Date Recorded Patient Health Questionnaire-2 Score 0 09/03/2023 Comments No Sex and Gender Information Value Date Recorded Sex Assigned at Female 04/04/2021 7:56 AM FARM EQUIPMENT ENGINEER Legal Sex Female 1:29 PM FARM EQUIPMENT ENGINEER Gender Identity Female 04/04/2021 7:56 AM FARM EQUIPMENT ENGINEER Sexual Orientation Straight 04/04/2021 7: 56 AM FARM EQUIPMENT ENGINEER Last Filed Vital Signs Vital Sign Reading Time Taken Comments Blood Pressure 127/60 09/03/2023 9:02 AM CDT Pulse 71 09/03/2023 9:02 AM CDT Temperature 36.6 C (97.9 F) 09/03/2023 9:02 AM CDT Respiratory Rate 18 09/03/2023 9:02 AM CDT Oxygen Saturation 99% 09/03/2023 9:02 AM CDT Inhaled Oxygen Concentration - - Weight 117.9 kg (260 lb) 10/29/2023 9:14 AM CDT Height 162.6 cm (5' 4.02) 07/09/2023 9:21 AM CD T Body Mass Index 44.61 07/09/2023 9:21 AM CDT Plan of Treatment Health Maintenance Due Date Last Done Comments COLOGUARD (AGES 45-75) - COLON CA SCREENING 1974 COLON MONITORING 1974 COLONOSCOPY - COLON CA SCREENING 1974 CT COLONOGRAPHY - COLON CA SCREENING 1974 Colorectal Cancer Screening 1974 FIT - COLON CA SCREENING 1974 FLEX SIG - COLON CA SCREENING 1974 HIV SCREENING 1989 DTAP/TDAP/TD VACCINES (1 - Tdap) 1993 HEPATITIS B VACCINE (1 of 3 - 19+ 3-dose series) 1993 PNEUMOCOCCAL VACCINE 50+ (1 of 2 - PCV) 1993 LIPID TESTING 12/18/2021 12/18/2016, 05/06/2015 COVID-19 VACCINE ( season) 2023 03/28/2021, 04/29/2020, 04/09/2020, Additional history exists ZOSTER VACCINE (1 of 2) 02/02/2024 DEPRESSION SCREENING 03/22/2024 07/09/2023, 04/03/2022, 08/22/2021 MAMMOGRAM 03/26/2024 03/26/2022, 05/2020, 05/26/2014 INFLUENZA VACCINE (#1) 2024 , 01/02/2022, 01/03/2021, Additional history exists HEPATITIS C SCREENING Completed 02/05/2023 HIB VACCINE Aged Out No longer eligi ble based on patient's age to complete this topic HPV VACCINE Aged Out No longer eligi ble based on patient's age to complete this topic MENINGOCOCCAL (Group B) VACCINE SHARED DECISION-MAKING Aged Out No longer eligible based on patient's age to complete this topic MENINGOCOCCAL GROUPS A/C/Y/W VACCINE Aged Out No longer eligible based on patient's age to complete this topic Medical Devices Implanted Type Area Gm Mobile Device Identifier Shelf Expiration Date Model / Serial / Lot Port Pwr Mri 9.6fr Implanted:Qty: 1 on 06/03/2015 by Hieu Menjivar MD at [facility] Right: Chest Wall [employer] 11/02/2016 [id number] / / [id number] Insurance [employer] [facility] [employer] HE[employer]LINK Care Teams Dyehouse Worker Relationship Specialty [place] [address] [address] [facility] [address] [place] [phone] PCP - General Internal Medicine 05/27/15
--- OUTSIDE RECORDS SUMMARY | 2024-10-25 14:26 | XMS_ITS | Encounter Summary ---
Author Organization [facility] Address [address] [place] [address] Care Team Providers Care Kennel Helper Name Role Phone Paulino Souza MD Unavailable Lam Nicholson MD Primary Care Provi sriram Encounter Details Date Type Department Care Team (Late st Contact Info) Description 10/06/2024 Results Follow-Up [facility] Primary Care at [place] [address] [place] [address] [address] [place] [address] Katie Roche, MECHANICAL TECHNICAL SERVICE SPECIALIST [address] [facility] [address] [place] [address] Cortisol Social History Tobacco Use Types Packs/Day Years Used Date Smoking Tobacco: Every Day Cigarettes 0.5 20 Smokeless Tobacco: Never Alcohol Use Standard Drinks/Week Comments Not Currently [...] on file Legal Sex Female 7:05 PM LONG CHAIN QUILLER TENDER Gender Identity Female 04/03/2020 10:14 AM LONG CHAIN QUILLER TENDER Sexual Orientation Straight 11/16/2023 2: 11 PM CDT Occupation Industry Job Start Date Job End Date rn Not on file Not on file Not on file documented as of this encounter Plan of Treatment Not on file documented as of this encounter Visit Diagnoses Not on filedocumented in this encounter Care Teams Kennel Helper Relationship Specialty Start Date End Date Lam Nicholson MD [address] [address] PCP - General Family Practice 06/26/24 Paulino Souza MD Consulting Physician Cardiovascular Disease 10/24/22 documented as of this encounter
--- OUTSIDE RECORDS SUMMARY | 2024-10-25 14:26 | XMS_ITS | Encounter Summary ---
Author Organization [facility] Address [address] [place] [address] Phone Care Team Providers Care Chicle Grinder Feeder Name Role Phone Paulino Souza MD Unavailable [phone] Lam Nicholson MD Primary Care Provi sriram Encounter Details Date Type Department Care Team (Latest Contact Info) Description 10/02/2024 Results Follow-Up [facility] Rheumatology [address] [facility] [address] [place] [address] Laurence Carranza, OPERATIONAL TEST MECHANIC [address] [place], [place] [id number] XR Sacroiliac Joints Less than 3 Views, Erythrocyte sedimentation rate, CRP (acute phase), Additional followed-up results: 4 Social History Tobacco Use Types Packs/Day Years [...] on file Legal Sex Female 7:05 PM COLLECTION ADVISOR Gender Identity Female 04/03/2020 10:14 AM COLLECTION ADVISOR Sexual Orientation Straight 11/16/2023 2: 11 PM CDT Occupation Industry Job Start Date Job End Date rn Not on file Not on file Not on file documented as of this encounter Plan of Treatment Not on file documented as of this encounter Visit Diagnoses Not on filedocumented in this encounter Care Teams Chicle Grinder Feeder Relationship Specialty Start Date End Date Lam Nicholson MD [address] [facility] [address] [place] [address] PCP - General Family Practice 06/26/24 Paulino Souza MD Consulting Physician Cardiovascular Disease 10/24/22 documented as of this encounter
--- OUTSIDE RECORDS SUMMARY | 2024-10-25 14:26 | XMS_ITS | Encounter Summary ---
Author Organization [facility] Address [address] [place] [address] Care Team Providers Care Feather Renovator Name Role Phone Chuckie Blue MD Primary Care Provider [phone] Encounter Details Date Type Department Care Team (Late st Contact Info) Description 05/30/2015 [facility] Outpatient Visit [facility] [address] [place] [address] [place] [address] [address] Social History Tobacco Use Types Packs/Day Years Used Date Smoking Tobacco: Every Day Cigarettes Smokeless Tobacco: Never Alcohol Use Standard Drinks/Week Comments No 0 (1 standard drink = 0.6 oz pur e alcohol) Comments No Sex and Gender Information Value Date Recorded Sex Assigned at Female 04/04/2021 7:56 AM SAMPLER RADIOACTIVE WASTE Legal Sex Female 1:29 PM SAMPLER RADIOACTIVE WASTE Gender Identity Female 04/04/2021 7:56 AM SAMPLER RADIOACTIVE WASTE Sexual Orientation Straight 04/04/2021 7: 56 AM SAMPLER RADIOACTIVE WASTE documented as of this encounter Plan of Treatment Not on file documented as of this encounter Visit Diagnoses Not on filedocumented in this encounter Care Teams Feather Renovator Relationship Specialty [place] [address] [phone] PCP - General Internal Medicine 05/27/15 documented as of this encounter
--- NOTE | 2024-10-25 14:27 | ECG_ITS ---
Test Date: 2024-10-25 14:41:26 Measurements Intervals [place] Rate: 87 P: 46 TX: 183 QRS: 55 QRSD: 95 T: 19 QT: 316 QTc: 381 Interpretive Statements SINUS RHYTHM BASELINE ARTIFACT- I, II, III, AVR, AVL, AVF, V1-V6 NORMAL ECG No previous ECG available for comparison Electronically Signed On 10-25-2024 15:02:10 CDT by Silvano Groves D.O.
== END 2024-10-25 14:16 | disposition home or self-care (01) ==
LOC: ANHSURGERY 14:20
PROVIDERS: PCP Family Medicine; Visit Provider Urology
DX: R00.1 Bradycardia, unspecified (principal); I10 Essential (primary) hypertension; N20.0 Calculus of kidney
CPT/HCPCS: 93005

== ENCOUNTER 2024-10-25 15:05 | Emergency (ER) | payer OTHER, SELFPAY ==
[2024-10-25] VITALS (11 sets, daily range): BP systolic 120–140; BP diastolic 59–81; PULSE 61–92; RESP 16–20; TEMP 37.1–39.2; O2SAT 94–100
--- NOTE | ~2024-10-25 | CT_ITS ---
CLINICAL INDICATION: flank pain COMPARISON: 09/03/2023. TECHNIQUE: Multiple contiguous axial images of the abdomen and pelvis were performed without the admi nistration of intravenous contrast The dose-length product (DLP) was 1581.36 mGy-cm. Automated exposure control and iterative reconstruction technique were employed. FINDINGS/OBSERVATIONS: Visualized lower thorax: Trace bibasilar atelectasis. The remainder of the bilateral lung bases are clear. The heart is of normal size, without pericardial effusion. Small hiatal hernia is present. Liver: The liver demonstrates homogeneously decreased attenuation and is borderline enlarged measuring 19 cm in longitudinal dimension. Gallbladder and biliary system: The gallbladder is only minimally distended, and otherwise unremarkable. Pancreas: Limited evaluation of the pancreas secondary to the lack of intravenous contrast. Spleen: The spleen demonstrates homogeneous attenuation and is not enlarged. Kidneys: Innumerable 2 and 3 mm calculi are detected within the bilateral kidneys, right greater than left. When compared with previous examination dated 09/03/2023, there has been interval development of perin ephric inflammatory change as well as global enlargement of the right kidney. No discrete hydroureter is detected. Trace right-sided hydronephrosis is noted. Within the right retroperitoneum, originating at the level of the aortic bifurcation, there is inflam matory change, without a discrete calcification identified within the right ureter. No left-sided hydronephrosis or hydroureter is present. Adrenal glands: Unremarkable. Gastrointestinal tract: Trace colonic diverticulosis without surrounding inflammatory change. Fecal stasis within the rectum. Appendix: The appendix is not definitively visualized. However, no pericecal inflammatory change is identified suggest the presence of acute appendicitis. Vasculature: Unremarkable. Lymph nodes: No pathologically enlarged or morphologically suspicious lymph nodes within the retroperitoneum or at the root of the mesentery. Pelvic structures: The bladder is decompressed. Redemonstration of a 2 mm calculus at the anterior most portion of the bladder wall, unchanged from p rior. The uterus is surgically absent or markedly atrophic. Multiple calcifications within the lower uterine segment, suggesting prior fibroid disease. Body wall and musculoskeletal: Age advanced degenerative disease within the lower thoracic and lumbosacral spines. IMPRESSION: Multiple bilateral renal calculi. Global enlargement of the right kidney with mild hydronephrosis and no hydroureter. No discrete calculus is appreciated along the course of the right ureter. Reviewed, dictated and finalized at location A. IMPRESSION: Multiple bilateral renal calculi. Global enlargement of the right kidney with mild hydronephrosis and no hydroure ter. No discrete calculus is appreciated along the course of the right ureter.
--- OUTSIDE RECORDS SUMMARY | 2024-10-25 15:13 | XMS_ITS | Encounter Summary ---
Author Organization [facility] Address [address] [place] [address] Care Team Providers Care Belt Maker Name Role Phone Chuckie Blue MD Primary Care Provider [phone] Encounter Details Date Type Department Care Team (Late st Contact Info) Description 05/30/2015 [facility] Outpatient Visit [facility] [address] [place] [address] [place] [address] [address] Social History Tobacco Use Types Packs/Day Years Used Date Smoking Tobacco: Every Day Cigarettes Smokeless Tobacco: Never Alcohol Use Standard Drinks/Week Comments No 0 (1 standard drink = 0.6 oz pur e alcohol) Comments No Sex and Gender Information Value Date Recorded Sex Assigned at Female 04/04/2021 7:56 AM AIRCRAFT MAINTENANCE INSTRUCTOR Legal Sex Female 1:29 PM AIRCRAFT MAINTENANCE INSTRUCTOR Gender Identity Female 04/04/2021 7:56 AM AIRCRAFT MAINTENANCE INSTRUCTOR Sexual Orientation Straight 04/04/2021 7: 56 AM AIRCRAFT MAINTENANCE INSTRUCTOR documented as of this encounter Plan of Treatment Not on file documented as of this encounter Visit Diagnoses Not on filedocumented in this encounter Care Teams Belt Maker Relationship Specialty [place] [address] [phone] PCP - General Internal Medicine 05/27/15 documented as of this encounter
--- OUTSIDE RECORDS SUMMARY | 2024-10-25 15:13 | XMS_ITS | Encounter Summary ---
Author Organization [facility] Address [address] [place] [address] Phone Care Team Providers Care Associate Professor Of Medicine Name Role Phone Paulino Souza MD Unavailable [phone] Lam Nicholson MD Primary Care Provi sriram Encounter Details Date Type Department Care Team (Latest Contact Info) Description 10/02/2024 Results Follow-Up [facility] Rheumatology [address] [facility] [address] Office [address] [place] [address] Laurence Carranza, WORK MANAGER [address] [place], [place] [id number] XR Sacroiliac Joints Less than 3 Views, [...] on file Legal Sex Female 7:05 PM INFORMATION SERVICES ASSISTANT Gender Identity Female 04/03/2020 10:14 AM INFORMATION SERVICES ASSISTANT Sexual Orientation Straight 11/16/2023 2: 11 PM CDT Occupation Industry Job Start Date Job End Date rn Not on file Not on file Not on file documented as of this encounter Plan of Treatment Not on file documented as of this encounter Visit Diagnoses Not on filedocumented in this encounter Care Teams Associate Professor Of Medicine Relationship Specialty Start Date End Date Lam Nicholson MD [address] [facility] [address] [place] [address] PCP - General Family Practice 06/26/24 Paulino Souza MD Consulting Physician Cardiovascular Disease 10/24/22 documented as of this encounter
--- OUTSIDE RECORDS SUMMARY | 2024-10-25 15:13 | XMS_ITS | Clinical Summary ---
Author Organization [facility] Address [address] [place] [id number] Care Team Providers Care Mangle Operator Garments Name Role Phone Paulino Souza MD Unavailable [phone] Lam Nicholson MD Primary Care Provi sriram Allergies Active Allergy Reactions Criticality Noted Date Comments Adhesive Tape-Silicones Blisters High 06/03/2015 Red and pulled off skin Azathioprine Nausea & Vomiting Low 07/16/2017 [place] Hives Medium 05/30/2015 Itching and hives Medications [...] (50 mg total) by mouth 01/07/20 Active fnskvhppwece-[id number]-[id number] on-minerals tablet Take by mouth Active golimumab [...] 12/31/2023 Assessment & Plan (05/07/2023 12:13 PM ESTHETICS INSTRUCTOR): Probably vertigo. Recommend 14 day Bardy D [...] Team Description 10/06/2024 7:15 AM CDT Lab [facility] [address] [place] [address] Arthralgia, unspecified joint 10/06/2024 Results Follow-Up [facility] Primary Care at [address] [place] [address] Katie Roche, NOHEMI Cortisol 10/02/2024 Results Follow-Up [facility] [address] [place] [address] Office [address] [place] [phone] Laurence Carranza NP XR Sacroiliac Joints Less than 3 Views, Erythrocyte sedimentation rate, CRP (acute phase), Additional followed-up results: 4 09/29/2024 10:40 AM CDT Lab [facility] [address] [facility] [place] [address] Rheumatoid arthritis 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) 09/29/2024 9:53 AM CDT - 09/29/2024 11:59 PM CDT Hospital Encounter [facility] [address] [place] [id number] Rheumatoid arthritis 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) Discharge Disposition: Discharge to home or self care 09/29/2024 9:00 AM CDT Office Visit [facility] [address] [facility] Office Building [address] [place] [phone] Laurence Carranza NP Rheumatoid arthritis 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) (Primary Dx); High risk medication use 09/26/2024 Telephone [facility] Gastroenterology at [address] [place] [phone] Krissy Johnson GI Appointment Reschedule 09/25/2024 9:30 AM CDT Infusion [facility] [address] [place] [address] [address] [place] [address] Rheumatoid arthritis of multiple sites without rheumatoid factor (HCC) (Primary Dx) 08/06/2024 Results Follow-Up [facility] Primary Care at [address] [place] [address] Lam Nicholson MD Dexa Axial Skeleton Bone Density 1 Or 2 Site 08/04/2024 7:36 AM CDT - 08/04/2024 11:59 PM CDT Hospital Encounter [facility] [address] [place] [address] Postmenopausal estrogen deficiency Discharge Disposition: Discharge to home or self care 07/28/2024 9:30 AM CDT Infusion [facility] [address] [facility] [address] [place] [address] Rheumatoid arthritis of multiple sites [...] on file Legal Sex Female 7:05 PM ESTHETICS INSTRUCTOR Gender Identity Female 04/03/2020 10:14 AM ESTHETICS INSTRUCTOR Sexual Orientation Straight 11/16/2023 2: 11 PM [...] history exists Medical Devices Implanted Type Area Display Maker Device Identifier Shelf Expiration Date Model / Serial / Lot [employer] Jillian Contour Vl 6fr 22-30cm Taper Tip Bladder Albin Low Profile Stiff Latex Free 180-156-01 - [id number] Implanted:Qty: 1 on 10/22/2022 by Rosanne Loza MD at [facility] Stent Left: Ureter [employer] Jillian [id number] 08/23/2026 [id number] / / [id number] Set Implant S[employer] [place] Drill Guide Punch Tap Achilles Pack - [id number] Implanted:Qty: 1 on 07/16/2017 by Gracia Lang DPM at [facility] Left: Heel [employer] 10/19/2018 [id number] / / [id number] Procedures Procedure Name Priority Date/Time Associated Diagnosis [...] Read Routine (OP Routine) 01/31/2024 9:33 AM ESTHETICS INSTRUCTOR Screening mammogram, encounter for HEPATITIS C RNA, QUANTITATIVE, PCR Routine 02/05/2023 10:13 AM ESTHETICS INSTRUCTOR from Last 3 Months or Most Recently Relevant to Health Maintenance Results * Cortisol (10/06/2024 7:25 AM CDT) Cortisol 10.5 4.8 - 19.5 mcg/dl Comment: Interpretive Data Normal Range: 4.8 - 19.5 mcg/dL; Evening: Half of morning value. This analyte undergoes marked diurnal variation. Ranges indicated apply to morning specimens. Current interpretive data was last revised 2018. Testing performed by: [facility], [address] [place] [address]., [address] Blood 10/06/2024 7:25 AM CDT 10/06/2024 9:21 AM CDT us Lam Nicholson MD LAB BLOOD ORDERABLE S Final Result Performing Organization Address City/State/ZIP Co ms Phone Number XANDER L[place] 1 [facility] Department [place] [address] * eGFR (09/29/2024 10:44 AM [...] BLOOD [place] [address] [address] [place] [address] * (ABNORMAL) Differential, auto (09/29/2024 10:44 AM [...] CDT 09/29/2024 11:01 AM CDT Laurence Carranza WATCH TRAIN INSPECTOR LAB BLOOD ORDERAB[place] [address] [facility] [place], [place] [id number] * (ABNORMAL) CBC with auto differential (09/29/2024 10:44 AM CDT) WBC 10.11(H) 3.80 - 9.90 K/cumm Hgb 14.9 11.9 - 15.5 g/dL [facility] Hct 43.1 35.6 - 45.5 % [facility] Plt 282 150 - 400 K/cumm [facility] MPV 10.8 9.1 - 12.3 fL [facility] RBC 4.62 3.90 - 5.20 M/cumm [facility] MCV 93.3 81.3 - 96.4 fL [facility] MCH 32.3 27.1 - 33.3 pg [facility] MCHC 34.6 32.3 - 35.7 g/dL [facility] RDW CV 13.1 11.1 - 14.9 % [facility] RDW SD 44.7 35.7 - 48.1 fL [facility] NRBC abs 0.00 0.00 - 0.01 K/cumm [facility] Blood 09/29/2024 10:4 4 AM CDT 09/29/2024 11:01 AM CDT Laurence Carranza WATCH TRAIN INSPECTOR LAB BLOOD ORDERABLES [place] [address] [facility] Back& [place], [place] [id number] * Erythrocyte sedimentation rate (09/29/2024 10:44 AM CDT) Pathologist [facility] Erythrocyte sedimentation rate 13 1 - 30 mm/hr Blood 09/29/2024 10:4 4 AM CDT 09/29/2024 11:01 AM CDT us Laurence Carranza WATCH TRAIN INSPECTOR LAB BLOOD ORDERABLES Fi nal Result Performing Organization Address [facility] de Phone Number [facility] [address] [email or web address] [address] * CRP (acute phase) (09/29/2024 10:44 AM CDT) [facility] CRP <3.0 <=10.0 mg/L Blood 09/29/2024 10:4 4 AM CDT 09/29/2024 11:01 AM CDT Laurence Carranaz WATCH TRAIN INSPECTOR LAB BLOOD ORDERABLES Fi nal Result Performing Organization Address [facility] de Phone Number XANDER LIEBERMANCH [address] [address] [place] [address] * (ABNORMAL) Comprehensive metabolic panel (09/29/2024 10:44 AM CDT) [facility] Sodium 140 135 - 145 mmol/L Potassium, pl 4.7 3.3 - 4.9 mmol/L [facility] Comment:Hemolyzed; result ma y be falsely elevated. Chloride 105 97 - 110 mmol/L [facility] CO2 27 22 - 32 mmol/L [facility] Anion gap 8 2 - 15 mmol/L [facility] BUN 14 6 - 25 mg/dL [facility] Creatinine 0.58(L) 0.60 - 1.10 mg/dL [facility] Glucose 90 70 - 199 mg/dL [facility] Comment: Interpretive Data Fasting glucose >/= [...] LAB BLOOD ORDERABLES nal Result XANDER BHAGATCH [address] [facility]. Department [place] [address] * XR Sacroiliac Joints Less than 3 [...] with given history of: screening osteoporosis Postmenopausal Display Maker/Model: ANTs Software Discovery SL (S/N [id number]) Facility LSC value of 0.022 for the [...] Willard Messer M.D. MF: LAINA Report ID: [id number] Reading Location: [place] [address] Procedure Note Willard Messer MD - 08/04/2024 EXAM DESCRIPTION: DEXA AXIAL SKELETON BONE DENSITY 1 OR MORE SITES REASON FOR STUDY: 49 y/o year old F with given history of: screening osteoporosis Postmenopausal Display Maker/Model: Brandizi SL (S/N [id number]) Facility LSC value of 0.022 for the [...] Willard Messer M.D. MF: LAINA Report ID: [id number] Reading Location: [place] [address] Lam Nicholson MD IM DXA PROCEDURES Final Result * Screening Mammogram Bilateral W Turner (01/31/2024 9:33 AM ESTHETICS INSTRUCTOR) Anatomical Region Laterality Modality Breast Bilateral Mammography 01/31/2024 11:1 0 AM ESTHETICS INSTRUCTOR Impressions 01/31/2024 11:10 AM ESTHETICS INSTRUCTOR No evidence of malignancy in either breast. Management of any palpable abnormality should be based on clinical grounds. FINAL ASSESSMENT: BI-RADS Category 1: Negative. RECOMMENDATION: Recommend return for annual screening mammogram in 12 months. Electronically signed by: Nicky Ramirez M.D. Narrative 01/31/2024 11:10 AM ESTHETICS INSTRUCTOR EXAMINATION: BILATERAL SCREENING MAMMOGRAM COMPARISON: Multiple prior [...] RNA PCR, quantitative Blood (02/05/2023 10:13 AM ESTHETICS INSTRUCTOR) HCV RNA result Not Detected [facility] (JESS) Comment: The quantifiable range of this assay is 15 IU/mL to 100,000,000 IU/mL (1.18 log IU/mL to 8.00 log IU/mL). Testing was performed by the RIGO 6800 HCV Test ([employer] Testing performed at [facility] Current Interpretive Data was last revised on 2020 Testing performed by: [facility], [address] [facility], [place]., [address] Blood 02/05/2023 10:1 3 AM ESTHETICS INSTRUCTOR 02/05/2023 5:52 PM ESTHETICS INSTRUCTOR us Chema Smith MD LAB MICROBIOLOGY - GENERAL ORD ERABLES Final Result XANDER LANDIN (JESS) 1 [facility] Department [place] [address] from Last 3 Months or Most Recently Relevant to Health Maintenance Insurance [facility] [id number] [facility] [id number] Advance Directives For more information, please contact: [phone] * Full Code (Latest Code Status on File) Date Activated Date Inactivated Comments 12/30/2018 1:41 AM 12/30/2018 10:46 PM * Full Code Date Activated Date Inactivated Comments 07/16/2017 3:40 PM 07/16/2017 6:30 PM Care Teams Mangle Operator Garments Relationship Specialty Start Date End Date Lam Nicholson MD [address] [facility] [address] [place] [address] PCP - General Family Practice 06/26/24 Paulino Souza MD Consulting Physician Cardiovascular Disease 10/24/22
--- OUTSIDE RECORDS SUMMARY | 2024-10-25 15:13 | XMS_ITS | Encounter Summary ---
Author Organization [facility] Address [address] [place] [address] Care Team Providers Care Medical Office Representative Name Role Phone Paulino Souza MD Unavailable Lam Nicholson MD Primary Care Provi sriram Encounter Details Date Type Department Care Team (Late st Contact Info) Description 10/06/2024 Results Follow-Up [facility] Primary Care at [place] [address] [place] [address] [address] [place] [address] Katie Roche, TOOL CRIB CLERK [address] [facility] [address] [place] [address] Cortisol Social History Tobacco Use [...] on file Legal Sex Female 7:05 PM STORAGE BATTERY CHARGER Gender Identity Female 04/03/2020 10:14 AM STORAGE BATTERY CHARGER Sexual Orientation Straight 11/16/2023 2: 11 PM CDT 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
--- OUTSIDE RECORDS SUMMARY | 2024-10-25 15:13 | XMS_ITS | Clinical Summary ---
Author Organization [facility] Address [address] [place] [address] Care Team Providers Care Manufacturing Engineer Paint Name Role Phone Chuckie Blue MD Primary Care Provider [phone] Source Comments [facility],non-owned Affiliates and Associated Physician Practices is amultiple site organization consisting of ambulatory clinics and hospital sitesin [place], [place], [place] and [place]. This disclosure is being madepursuant to the Care Everywhere program and may not contain all information available regarding this patient. Last updated 17.[facility] Allergies Active Allergy Reactions Criticality Noted Date Comments Steve Inhibitors Cough Medium 05/06/2015 Adhesive Sensitivity Urticaria High 06/03/2015 Red and pulled off skin Red and pulled off skin Azathioprine Nausea and/or Vomiting Low 07/16/2017 Codeine Psychiatric Medium 03/29/2017 Hmg-Coa-R Inhibitors Other 10/03/2015 [place] Urticaria Medium 05/30/2015 Itching and hives Itching [...] Comments Diabetes Maternal Grandfather Hypercholesterolemia Maternal Grandfather AL Maternal Grandfather Heart Disease Maternal Grandmother Arthritis [...] Sex Assigned at Female 04/04/2021 7:56 AM SPUN PASTE MACHINE OPERATOR Legal Sex Female 1:29 PM SPUN PASTE MACHINE OPERATOR Gender Identity Female 04/04/2021 7:56 AM SPUN PASTE MACHINE OPERATOR Sexual Orientation Straight 04/04/2021 7: 56 AM SPUN PASTE MACHINE OPERATOR Last Filed Vital Signs Vital Sign Reading [...] this topic Medical Devices Implanted Type Area Project Leader Device Identifier Shelf Expiration Date Model / Serial / Lot Port Pwr Mri 9.6fr Implanted:Qty: 1 on 06/03/2015 by Hieu Menjivar MD at [facility] Right: Chest Wall [employer] 11/02/2016 [id number] / / [id number] Insurance [employer] [facility] HEALTHLINK HEALTHLINK Care Teams Manufacturing Engineer Paint Relationship Specialty [place] [address] [address] [facility] [address] [place] [id number] PCP - General Internal Medicine 05/27/15
--- NOTE | 2024-10-25 15:33 | ED_ITS ---
HPI - Female Genitourinary General Chief complaint: Urogenital-Female <Krzysztof Vela APRN - Last Filed: 10/25/24 15:34> Stated complaint: renal stone, fever <Krzysztof Vela APRN - Last Filed: 10/25/24 15:34> Time Seen by Provider: 10/25/24 16:08 <Krzysztof Vela APRN - Last Filed: 10/25/24 15:34> Focused HPI: 49-year-old female presents to the ER complaining of right flank pain, fever, dysuria since today. Patient has been having right flank pain and reports having a known kidney stone to the right UVJ that is [address] Bowman for kidney stones. Patient was supposed to have a removed as an outpatient procedure and while she was here get an EKG done for preoperative work she developed a fever, nausea, and vomiting. Patient was told that her kidney stone was obstructing. Patient had a CT scan performed at outside hospital. Patient denies any abdominal pain. GENERAL: Well-appearing, well-nourished, and in no acute distress. Patient is ill-appearing. HEAD: Normocephalic, atraumatic. CHEST: Clear to auscultation. ?No respiratory distress. HEART: Regular rate and rhythm.? NEURO: ?Alert and oriented x3. Patient screened in triage and initial orders placed.? ?Additional care and disposition to be based upon?diagnostic testing and treatment. <Krzysztof Vela APRN - Last Filed: 10/25/24 15:34> History of Present Illness HPI Narrative: Breathe HPI <Sathya Martel MD - Last Filed: 10/25/24 18:29> Related Data Home medications: Home Medications ?Medication ?Instructions ?Recorded ?Confirmed ?Last Taken ?Type ketorolac 10 mg tablet 10 mg PO Q6H PRN Pain 11/10/22 10/24/24 11/05/22 History lansoprazole 30 mg capsule,delayed 30 mg PO DAILY 11/10/22 10/24/24 11/11/22 History release olmesartan 20 mg tablet 20 mg PO DAILY 11/10/22 10/24/24 11/11/22 History ondansetron 4 mg disintegrating 4 mg translingual PRN PRN Nausea 11/10/22 10/24/24 11/11/22 History tablet multivitamin (Daily Multi-Vitamin 1 tablet PO DAILY 10/24/24 10/24/24 Unknown History tablet) tamsulosin 0.4 mg capsule 0.4 mg PO HS 10/24/24 10/24/24 Unknown History <Krzysztof Vela APRN - Last Filed: 10/25/24 15:34> Allergies/Adverse reactions: Allergies Allergy/AdvReac Type Severity Reaction Status Date / Time strawberry Allergy Severe Anaphylaxis Verified 10/25/24 15:21 adhesive tape AdvReac Unknown Blister Verified 10/25/24 15:21 azathioprine (From Imuran) AdvReac Unknown Vomiting Verified 10/25/24 15:21 <Krzysztof Vela APRN - Last Filed: 10/25/24 15:34> Review of Systems 2 Review of Systems: All systems reviewed & are unremarkable except as noted in HPI and below <Sathya Martel MD - Last Filed: 10/25/24 18:29> Constitutional: Constitutional: Reports no additional constitutional complaints <Sathya Martel MD - Last Filed: 10/25/24 18:29> Cardiovascular: Cardiovascular: Reports no additional cardiovascular complaints <Sathya Martel MD - Last Filed: 10/25/24 18:29> Respiratory: Respiratory: Reports no additional respiratory complaints < Sathya Martel MD - Last Filed: 10/25/24 18:29> Gastrointestinal: Gastrointestinal: Reports no additional gastrointestinal complaints <Sathya Martel MD - Last Filed: 10/25/24 18:29> Genitourinary: Genitourinary: Reports no additional female genitourinary complaints <Sathya Martel MD - Last Filed: 10/25/24 18:29> Musculoskeletal: Musculoskeletal: Reports no additional musculoskeletal complaints <Sathya Martel MD - Last Filed: 10/25/24 18:29> [facility] Past Medical History Medical History: Medical History (Updated 10/25/24 @ 20:42 by Nunu Chapman MD) HUMERA (obstructive sleep apnea) Morbid obesity <Krzysztof Vela APRN - Last Filed: 10/25/24 15:34> Social History Social History: Social History Smoking packs per day: 1 Smoking cigarettes per day: 20.0 Years smoked: 20 Smoking pack-years: 20.00 Smoking status: Current every day smoker Tobacco type: cigarettes Second hand tobacco smoke exposure: Yes Alcohol intake: current Alcohol use details: 1 per year Substance use: never Substance use type: does not use Living arrangements: with family Spiritual care concerns: No <Krzysztof Vela APRN - Last Filed: 10/25/24 15:34> Exam 2 Narrative: GENERAL: Ill-appearing, well-nourished, and in no acute distress. HEAD: Normocephalic, atraumatic. ENT: Mucous membranes moist. CHEST: Clear to auscultation. No respiratory distress. HEART: Regular rate and rhythm. Normal peripheral pulses. ABDOMEN: Soft, nontender, nondistended. No significant CVA tenderness. EXTREMITIES: Normal range of motion. No edema. SKIN: Warm, dry, no rash. NEURO: Alert and oriented x3. PSYCH: Normal mood and affect. <Sathya Martel MD - Last Filed: 10/25/24 18:29> Course Course Emergency Course: Blood cultured. IV ceftriaxone or infection. Elevated white blood cell count. Awaiting CT scan results. <Sathya Martel MD - Last Filed: 10/25/24 18:29> Blood cultured. IV ceftriaxone or infection. Elevated white blood cell count. Awaiting CT scan results. Patient signed out to me at 7:[address] p[address] pending interpretation of CT scan. This is as below. There is a bladder stone but no ureteral stone. Patient is reassessed at bedside. She notes that she is feeling much better than when she initially came in although she does have a headache. She reports it is right-sided and her scalp feels tender to touch. Headache cocktail given while discuss with program paraprofessional urologist Dr Baker who advises that for all intents and purposes the stone has essentially passed given that it is located within the bladder and thus her currently scheduled appointment for procedure tomorrow with Dr. Perdue will be canceled and he will ensure this is done and notify Dr Perdue. Normal lactic. Advises that reasonable for shared decision making and clinical assessment on admission for pyelo (given leukocytosis / fever) versus discharge with strict return precautions. Patient is reassessed at bedside approximately 8:35 p.m.. She would like to go home. I informed her that she does not need to proceed with preop instructions or presenting for intervention tomorrow as it has been canceled. Advised that she would be discharged with medications including antibiotics and she was given strict emergency department return precautions that would indicate that she had failed outpatient therapy. She and her verified understanding. Blood cultures and urine cultures currently in process. HR has normalized. DC'd w/ RX for OTC analgesics/antipyretics, Zofran, and antibiotics as well as work note. < Nunu Chapman MD - Last Filed: 10/25/24 20:49> Vital Signs Vital signs: Vital Signs Temperature 102.6 F H 10/25/24 15:10 Pulse Rate 92 10/25/24 15:10 Respiratory Rate 20 10/25/24 15:10 Blood Pressure 140/73 10/25/24 15:10 Pulse Oximetry 97 10/25/24 15:10 Oxygen Delivery Room Air 10/25/24 15:10 Temperature 98.7 F 10/25/24 19:16 Pulse Rate 86 10/25/24 19:01 Respiratory Rate 16 10/25/24 19:01 Blood Pressure 130/71 10/25/24 19:01 Pulse Oximetry 94 10/25/24 19:01 Oxygen Delivery Room Air 10/25/24 15:10 <Krzysztof Vela APRN - Last Filed: 10/25/24 15:34> Vital Signs Temperature 102.6 F H 10/25/24 15:10 Pulse Rate 92 10/25/24 15:10 Respiratory Rate 20 10/25/24 15:10 Blood Pressure 140/73 10/25/24 15:10 Pulse Oximetry 97 10/25/24 15:10 Oxygen Delivery Room Air 10/25/24 15:10 Temperature 98.7 F 10/25/24 19:16 Pulse Rate 86 10/25/24 19:01 Respiratory Rate 16 10/25/24 19:01 Blood Pressure 130/71 10/25/24 19:01 Pulse Oximetry 94 10/25/24 19:01 Oxygen Delivery Room Air 10/25/24 15:10 <Sathya Martel MD - Last Filed: 10/25/24 18:29> Vital Signs Temperature 102.6 F H 10/25/24 15:10 Pulse Rate 92 10/25/24 15:10 Respiratory Rate 20 10/25/24 15:10 Blood Pressure 140/73 10/25/24 15:10 Pulse Oximetry 97 10/25/24 15:10 Oxygen Delivery Room Air 10/25/24 15:10 Temperature 98.7 F 10/25/24 19:16 Pulse Rate 86 10/25/24 19:01 Respiratory Rate 16 10/25/24 19:01 Blood Pressure 130/71 10/25/24 19:01 Pulse Oximetry 94 10/25/24 19:01 Oxygen Delivery Room Air 10/25/24 15:10 <Nunu Chapman MD - Last Filed: 10/25/24 20:49> MDM - Female Genitourinary Lab Data Result diagrams: 10/25/24 16:23 10/25/24 16:23 <Krzysztof Vela APRN - Last Filed: 10/25/24 15:34> Labs: Lab Results 10/25/24 Range/Units 16:23 WBC 18.9 H (4.5-10.0) K/mm3 RBC 3.95 L (4.2-5.4) M/mm3 Hgb 12.4 (12.0-15.0) g/dL Hct 36.8 L (37.0-47.0) % MCV 93.2 (80-100) fl MCH 31.4 (26-34) pg MCHC 33.7 (32-36) g/dl RDW 13.2 (11.5-14.5) % Plt Count 196 (150-375) k/mm3 MPV 10.7 H (7.4-10.4) fl Immature Gran % (Auto) 0.6 H (0-0.5) % Neut % (Auto) 76.9 H (45.5-73.1) % Lymph % (Auto) 10.3 L (18.3-44.2) % [place] % (Auto) 12.0 H (2.6-8.5) % Eos % (Auto) 0.0 (0-4.4) % Baso % (Auto) 0.2 (0.2-1.2) % Lymph # (Auto) 1.95 (0.9-3.2) K/mm3 [place] # (Auto) 2.3 H (0.1-0.6) K/mm3 Eos # (Auto) 0.0 (0-0.3) K/mm3 Baso # (Auto) 0.0 (0.0-0.1) K/mm3 Abs Immat Gran (auto) 0.12 H (0.00-0.031) K/mm3 Absolute Neuts (auto) 14.5 H (1.3-6.7) K/mm3 Absolute Nucleated RBC 0.000 (0.0-0.012) K/mm3 Nucleated RBC % 0.0 (0.0-0.2) % PT 15.0 H (11.1-14.7) Seconds INR 1.2 APTT 32.9 (22.3-36.8) Seconds Sodium 133 L (137-145) mmol/L Potassium 3.8 (3.4-5.0) mmol/L Chloride 106 (98-107) mmol/L Carbon Dioxide 22 (22-30) mmol/L Anion Gap 5 (4-12) mmol/L BUN 13 (7-17) mg/dL Creatinine 0.70 (0.7-1.0) mg/dL Estim Creat Clear Calc 107 ml/min Estimated GFR > 60 (59 - ) Glucose 118 H (65-110) mg/dL Lactic Acid 0.8 (0.7-2.0) mmol/L Calcium 8.8 (8.4-10.2) mg/dL Total Bilirubin 0.8 (0.2-1.3) mg/dL AST 49 H (14-36) U/L ALT 50 H (6-35) U/L Alkaline Phosphatase 88 (38-126) U/L Total Protein 6.8 (6.3-8.2) g/dL Albumin 3.7 (3.5-5.1) g/dL Urine Color Dark yellow (Yellow) Urine Appearance Clear (Clear) Urine pH 6.5 (5.0-9.0) Ur Specific [place] 1.019 (1.001-1.035) Urine Protein 3+ H (Negative) mg/dL Urine Glucose (UA) Negative (Negative) mg/dL Urine Ketones Negative (Negative) mg/dL Ur Blood (Man) 3+ H (Negative) Urine Nitrate Negative (Negative) Urine Bilirubin Negative (Negative) Urine Urobilinogen 1.0 (<2.0) mg/dL Leukocyte Esterase Rfl 1+ H (Negative) ELIESER/UL Urine RBC >100 H (0-2) /hpf Urine WBC 21-50 H (0-3) /hpf Ur Squamous Epith Cells None seen (Few) /hpf Urine Bacteria 2+ H /hpf Urine Casts 0-2 <Krzysztof Vela, CERTIFIED INDOOR ENVIRONMENTALIST - Last Filed: 10/25/24 15:34> Lab Results 10/25/24 Range/Units 16:23 WBC 18.9 H (4.5-10.0) K/mm3 RBC 3.95 L (4.2-5.4) M/mm3 Hgb 12.4 (12.0-15.0) g/dL Hct 36.8 L (37.0-47.0) % MCV 93.2 (80-100) fl MCH 31.4 (26-34) pg MCHC 33.7 (32-36) g/dl RDW 13.2 (11.5-14.5) % Plt Count 196 (150-375) k/mm3 MPV 10.7 H (7.4-10.4) fl Immature Gran % (Auto) 0.6 H (0-0.5) % Neut % (Auto) 76.9 H (45.5-73.1) % Lymph % (Auto) 10.3 L (18.3-44.2) % [place] % (Auto) 12.0 H (2.6-8.5) % Eos % (Auto) 0.0 (0-4.4) % Baso % (Auto) 0.2 (0.2-1.2) % Lymph # (Auto) 1.95 (0.9-3.2) K/mm3 [place] # (Auto) 2.3 H (0.1-0.6) K/mm3 Eos # (Auto) 0.0 (0-0.3) K/mm3 Baso # (Auto) 0.0 (0.0-0.1) K/mm3 Abs Immat Gran (auto) 0.12 H (0.00-0.031) K/mm3 Absolute Neuts (auto) 14.5 H (1.3-6.7) K/mm3 Absolute Nucleated RBC 0.000 (0.0-0.012) K/mm3 Nucleated RBC % 0.0 (0.0-0.2) % PT 15.0 H (11.1-14.7) Seconds INR 1.2 APTT 32.9 (22.3-36.8) Seconds Sodium 133 L (137-145) mmol/L Potassium 3.8 (3.4-5.0) mmol/L Chloride 106 (98-107) mmol/L Carbon Dioxide 22 (22-30) mmol/L Anion Gap 5 (4-12) mmol/L BUN 13 (7-17) mg/dL Creatinine 0.70 (0.7-1.0) mg/dL Estim Creat Clear Calc 107 ml/min Estimated GFR > 60 (59 - ) Glucose 118 H (65-110) mg/dL Lactic Acid 0.8 (0.7-2.0) mmol/L Calcium 8.8 (8.4-10.2) mg/dL Total Bilirubin 0.8 (0.2-1.3) mg/dL AST 49 H (14-36) U/L ALT 50 H (6-35) U/L Alkaline Phosphatase 88 (38-126) U/L Total Protein 6.8 (6.3-8.2) g/dL Albumin 3.7 (3.5-5.1) g/dL Urine Color Dark yellow (Yellow) Urine Appearance Clear (Clear) Urine pH 6.5 (5.0-9.0) Ur Specific [place] 1.019 (1.001-1.035) Urine Protein 3+ H (Negative) mg/dL Urine Glucose (UA) Negative (Negative) mg/dL Urine Ketones Negative (Negative) mg/dL Ur Blood (Man) 3+ H (Negative) Urine Nitrate Negative (Negative) Urine Bilirubin Negative (Negative) Urine Urobilinogen 1.0 (<2.0) mg/dL Leukocyte Esterase Rfl 1+ H (Negative) ELIESER/UL Urine RBC >100 H (0-2) /hpf Urine WBC 21-50 H (0-3) /hpf Ur Squamous Epith Cells None seen (Few) /hpf Urine Bacteria 2+ H /hpf Urine Casts 0-2 <Sathya Martel MD - Last Filed: 10/25/24 18:29> Lab Results 10/25/24 Range/Units 16:23 WBC 18.9 H (4.5-10.0) K/mm3 RBC 3.95 L (4.2-5.4) M/mm3 Hgb 12.4 (12.0-15.0) g/dL Hct 36.8 L (37.0-47.0) % MCV 93.2 (80-100) fl MCH 31.4 (26-34) pg MCHC 33.7 (32-36) g/dl RDW 13.2 (11.5-14.5) % Plt Count 196 (150-375) k/mm3 MPV 10.7 H (7.4-10.4) fl Immature Gran % (Auto) 0.6 H (0-0.5) % Neut % (Auto) 76.9 H (45.5-73.1) % Lymph % (Auto) 10.3 L (18.3-44.2) % [place] % (Auto) 12.0 H (2.6-8.5) % Eos % (Auto) 0.0 (0-4.4) % Baso % (Auto) 0.2 (0.2-1.2) % Lymph # (Auto) 1.95 (0.9-3.2) K/mm3 [place] # (Auto) 2.3 H (0.1-0.6) K/mm3 Eos # (Auto) 0.0 (0-0.3) K/mm3 Baso # (Auto) 0.0 (0.0-0.1) K/mm3 Abs Immat Gran (auto) 0.12 H (0.00-0.031) K/mm3 Absolute Neuts (auto) 14.5 H (1.3-6.7) K/mm3 Absolute Nucleated RBC 0.000 (0.0-0.012) K/mm3 Nucleated RBC % 0.0 (0.0-0.2) % PT 15.0 H (11.1-14.7) Seconds INR 1.2 APTT 32.9 (22.3-36.8) Seconds Sodium 133 L (137-145) mmol/L Potassium 3.8 (3.4-5.0) mmol/L Chloride 106 (98-107) mmol/L Carbon Dioxide 22 (22-30) mmol/L Anion Gap 5 (4-12) mmol/L BUN 13 (7-17) mg/dL Creatinine 0.70 (0.7-1.0) mg/dL Estim Creat Clear Calc 107 ml/min Estimated GFR > 60 (59 - ) Glucose 118 H (65-110) mg/dL Lactic Acid 0.8 (0.7-2.0) mmol/L Calcium 8.8 (8.4-10.2) mg/dL Total Bilirubin 0.8 (0.2-1.3) mg/dL AST 49 H (14-36) U/L ALT 50 H (6-35) U/L Alkaline Phosphatase 88 (38-126) U/L Total Protein 6.8 (6.3-8.2) g/dL Albumin 3.7 (3.5-5.1) g/dL Urine Color Dark yellow (Yellow) Urine Appearance Clear (Clear) Urine pH 6.5 (5.0-9.0) Ur Specific [place] 1.019 (1.001-1.035) Urine Protein 3+ H (Negative) mg/dL Urine Glucose (UA) Negative (Negative) mg/dL Urine Ketones Negative (Negative) mg/dL Ur Blood (Man) 3+ H (Negative) Urine Nitrate Negative (Negative) Urine Bilirubin Negative (Negative) Urine Urobilinogen 1.0 (<2.0) mg/dL Leukocyte Esterase Rfl 1+ H (Negative) ELIESER/UL Urine RBC >100 H (0-2) /hpf Urine WBC 21-50 H (0-3) /hpf Ur Squamous Epith Cells None seen (Few) /hpf Urine Bacteria 2+ H /hpf Urine Casts 0-2 <Nunu Chapman MD - Last Filed: 10/25/24 20:49> Imaging Data Radiologist's impression: Impressions Abdomen/Pelvis CT 10/25/24 19:32 IMPRESSION: Multiple bilateral renal calculi. Global enlargement of the right kidney with mild hydronephrosis and no hydroureter. No discrete calculus is appreciated along the course of the right ureter. <Nunu Chapman MD - Last Filed: 10/25/24 20:49> Discharge Plan Discharge Clinical Impression: Renal calculus, bilateral, Enlarged kidney, Pyelonephritis, Leukocytosis, Bladder stones <Krzysztof Vela APRN - Last Filed: 10/25/24 15:34> Patient Disposition: Home <Krzysztof Vela APRN - Last Filed: 10/25/24 15:34> Condition: Stable <Krzysztof Vela APRN - Last Filed: 10/25/24 15:34> Instructions: Antibiotic Form, Kidney Stones (ED), Kidney Infection (ED), Leukocytosis (ED), How to Strain Your Urine (ED), Bladder Stones (ED) <Krzysztof Vela APRN - Last Filed: 10/25/24 15:34> Additional Instructions: Acetaminophen/Tylenol (maximum 4000 mg per day) is safe to take with NSAIDs (ibuprofen/Motrin) for pain relief and fever. You are also being prescribed ondansetron/Zofran for nausea and vomiting. You received your 1st dose of IV antibiotics with the rest of the course prescribed. Rest and drink plenty of fluids. You can follow up with Dr Perdue as needed but no need to present for your procedure tomorrow as it has been cancelled. Return to the emergency department with any new or worsening symptoms such as fever greater than 100.4? F, intractable pain, intractable nausea/vomiting, etc. <Krzysztof Vela APRN - Last Filed: 10/25/24 15:34> Patient Language: Singaporean <Krzysztof Vela APRN - Last Filed: 10/25/24 15:34> Prescriptions: New ibuprofen 600 mg tablet 600 mg PO TID PRN (Reason: pain) Qty: 30 0RF ondansetron 4 mg tablet,disintegrating 4 mg PO Q8H PRN (Reason: nausea and vomiting) Qty: 7 0RF acetaminophen 500 mg capsule 1,000 mg PO Q6H PRN (Reason: pain) Qty: 30 0RF cefpodoxime 200 mg tablet 200 mg PO BID 10 Days Qty: 20 0RF Rx Instructions: must administer with a meal/food No Action multivitamin [Daily Multi-Vitamin] Tablet 1 tablet PO DAILY tamsulosin 0.4 mg capsule 0.4 mg PO HS ketorolac 10 mg tablet 10 mg PO Q6H PRN (Reason: Pain) lansoprazole 30 mg Capsule,Delayed Release(Dr/Ec) 30 mg PO DAILY ondansetron 4 mg tablet,disintegrating 4 mg translingual PRN PRN (Reason: Nausea) olmesartan 20 mg tablet 20 mg PO DAILY hydrocodone-acetaminophen 5-325 mg tablet 1 - 2 tablet PO Q6H PRN (Reason: pain) Qty: 20 0RF <Krzysztof Vela APRN - Last Filed: 10/25/24 15:34> Follow-up/Referrals: Rufino Perdue MD [Physician] - <Krzysztof Vela APRN - Last Filed: 10/25/24 15:34> Stand Alone Forms: Work/School Release IP <Krzysztof Vela APRN - Last Filed: 10/25/24 15:34> Time of Disposition: 20:45 <Krzysztof Vela APRN - Last Filed: 10/25/24 15:34> 20:45 <Sathya Martel MD - Last Filed: 10/25/24 18:29> 20:45 <Nunu Chapman MD - Last Filed: 10/25/24 20:49>
[2024-10-25] MEDS: ACETAMINOPHEN 500 MG TABLET 1000 MG PO (15:38)
--- OUTSIDE RECORDS SUMMARY | 2024-10-25 16:26 | XMS_ITS | Encounter Summary ---
Author Organization [facility] Health Address [address] [place] [address] Care Team Providers Care Respiratory Therapy Technician Name Role Phone Chuckie Blue MD Primary Care Provider [phone] Encounter Details Date Type Department Care Team (Late st Contact Info) Description 05/30/2015 [facility] Outpatient Visit [facility] [address] [place] [address] [place] [address] [address] Social History Tobacco Use Types Packs/Day Years Used Date Smoking Tobacco: Every Day Cigarettes Smokeless Tobacco: Never Alcohol Use Standard Drinks/Week Comments No 0 (1 standard drink = 0.6 oz pur e alcohol) Comments No Sex and Gender Information Value Date Recorded Sex Assigned at Female 04/04/2021 7:56 AM CENTRAL SERVICE SUPPLY DISTRIBUTOR Legal Sex Female 1:29 PM CENTRAL SERVICE SUPPLY DISTRIBUTOR Gender Identity Female 04/04/2021 7:56 AM CENTRAL SERVICE SUPPLY DISTRIBUTOR Sexual Orientation Straight 04/04/2021 7: 56 AM CENTRAL SERVICE SUPPLY DISTRIBUTOR documented as of this encounter Plan of Treatment Not on file documented as of this encounter Visit Diagnoses Not on filedocumented in this encounter Care Teams Respiratory Therapy Technician Relationship Specialty [place] [address] [id number] PCP - General Internal Medicine 05/27/15 documented as of this encounter
--- OUTSIDE RECORDS SUMMARY | 2024-10-25 16:26 | XMS_ITS | Encounter Summary ---
Author Organization [facility] Healthcare Address [address] [place] [address] Care Team Providers Care Agricultural Research Engineer Name Role Phone Paulino Souza MD Unavailable [phone] Lam Nicholson MD Primary Care Provi sriram Encounter Details Date Type Department Care Team (Late st Contact Info) Description 10/06/2024 Results Follow-Up [facility] Primary Care at [place] [address] [place] [address] [address] [place] [address] Katie Roche, VICE PRESIDENT RESEARCH [address] [facility] [address] [place] [address] Cortisol Social History Tobacco Use [...] on file Legal Sex Female 7:05 PM MINE WIRER Gender Identity Female 04/03/2020 10:14 AM MINE WIRER Sexual Orientation Straight 11/16/2023 2: 11 PM CDT Occupation Industry Job Start Date Job End Date rn Not on file Not on file Not on file documented as of this encounter Plan of Treatment Not on file documented as of this encounter Visit Diagnoses Not on filedocumented in this encounter Care Teams Agricultural Research Engineer Relationship Specialty Start Date End Date Lam Nicholson MD [address] [address] PCP - General Family Practice 06/26/24 Paulino Souza MD Consulting Physician Cardiovascular Disease 10/24/22 documented as of this encounter
--- OUTSIDE RECORDS SUMMARY | 2024-10-25 16:26 | XMS_ITS | Clinical Summary ---
Author Organization [facility] Address [address] [facility] [place] [address] Care Team Providers Care Kettle Fry Cook Operator Name Role Phone Chuckie Blue MD Primary Care Provider [phone] Source Comments [facility],non-owned Affiliates and Associated Physician Practices is amultiple site organization consisting of ambulatory clinics and hospital sitesin [place], [place], [place] and [place]. This disclosure is being madepursuant to the Care Everywhere program and may not contain all information available regarding this patient. Last updated 17.[facility] Allergies Active Allergy Reactions Criticality Noted Date Comments Steve Inhibitors Cough Medium 05/06/2015 Adhesive Sensitivity Urticaria High 06/03/2015 Red and pulled off skin Red and pulled off skin Azathioprine Nausea and/or Vomiting Low 07/16/2017 Codeine Psychiatric Medium 03/29/2017 Hmg-Coa-R Inhibitors Other 10/03/2015 [place] Urticaria Medium 05/30/2015 Itching and hives Itching [...] Comments Diabetes Maternal Grandfather Hypercholesterolemia Maternal Grandfather PR Maternal Grandfather Heart Disease Maternal Grandmother Arthritis [...] Sex Assigned at Female 04/04/2021 7:56 AM REPAIR SERVICE CLERK Legal Sex Female 1:29 PM REPAIR SERVICE CLERK Gender Identity Female 04/04/2021 7:56 AM REPAIR SERVICE CLERK Sexual Orientation Straight 04/04/2021 7: 56 AM REPAIR SERVICE CLERK Last Filed Vital Signs Vital Sign Reading [...] this topic Medical Devices Implanted Type Area Logistics Engineering Manager Device Identifier Shelf Expiration Date Model / Serial / Lot Port Pwr Mri 9.6fr Implanted:Qty: 1 on 06/03/2015 by Hieu Menjivar MD at [facility] Right: Chest Wall [employer] 11/02/2016 [id number] / / [id number] Insurance [employer] [facility] [employer] HE[employer] Care Teams Kettle Fry Cook Operator Relationship Specialty [place] [address] [address] [facility] [address] [place] [phone] PCP - General Internal Medicine 05/27/15
--- OUTSIDE RECORDS SUMMARY | 2024-10-25 16:27 | XMS_ITS | Encounter Summary ---
Author Organization [facility] Address [address] [place] [address] Phone Care Team Providers Care Breaker Hand Name Role Phone Paulino Souza MD Unavailable [phone] Lam Nicholson MD Primary Care Provi sriram Encounter Details Date Type Department Care Team (Latest Contact Info) Description 10/02/2024 Results Follow-Up [facility] Rheumatology [address] [facility] Office [address] [place] [address] Laurence Carranza, CERTIFIED PERSONAL TRAINER [address] [place], [place] [id number] XR Sacroiliac Joints Less than 3 Views, [...] on file Legal Sex Female 7:05 PM SALES SUPPORT REP Gender Identity Female 04/03/2020 10:14 AM SALES SUPPORT REP Sexual Orientation Straight 11/16/2023 2: 11 PM CDT Occupation Industry Job Start Date Job End Date rn Not on file Not on file Not on file documented as of this encounter Plan of Treatment Not on file documented as of this encounter Visit Diagnoses Not on filedocumented in this encounter Care Teams Breaker Hand Relationship Specialty Start Date End Date Lam Nicholson MD [address] [facility] [address] [place] [address] PCP - General Family Practice 06/26/24 Paulino Souza MD Consulting Physician Cardiovascular Disease 10/24/22 documented as of this encounter
--- OUTSIDE RECORDS SUMMARY | 2024-10-25 16:27 | XMS_ITS | Clinical Summary ---
Author Organization [facility] Address [address] [place] [id number] Care Team Providers Care Rolling Machine Operator Automatic Name Role Phone Paulino Souza MD Unavailable [phone] Lam Nicholson MD Primary Care Provi sriram Allergies Active Allergy Reactions Criticality Noted Date Comments Adhesive Tape-Silicones Blisters High 06/03/2015 Red and pulled off skin Azathioprine Nausea & Vomiting Low 07/16/2017 [place] Hives Medium 05/30/2015 Itching and hives Medications [...] (50 mg total) by mouth 01/07/20 Active rsejzxqgurhs-Fb-fq on-minerals tablet Take by mouth Active golimumab [...] 12/31/2023 Assessment & Plan (05/07/2023 12:13 PM SENIOR DIRECTOR MARKETING): Probably vertigo. Recommend 14 day Bardy D [...] Team Description 10/06/2024 7:15 AM CDT Lab [facility] [address] [place] [address] Arthralgia, unspecified joint 10/06/2024 Results Follow-Up [facility] Primary Care at [address] [place] [address] Katie Roche, NOHEMI Cortisol 10/02/2024 Results Follow-Up [facility] Rheumatology [address] [place] [address] Office [address] [place] [phone] Laurence Carranza NP XR Sacroiliac Joints Less than 3 Views, Erythrocyte sedimentation rate, CRP (acute phase), Additional followed-up results: 4 09/29/2024 10:40 AM CDT Lab [facility] [address] [place] [facility] [address] Rheumatoid arthritis 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) 09/29/2024 9:53 AM CDT - 09/29/2024 11:59 PM CDT Hospital Encounter [facility] Imaging [address] [place] [id number] Rheumatoid arthritis 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) Discharge Disposition: Discharge to home or self care 09/29/2024 9:00 AM CDT Office Visit [facility] Rheumatology [address] [facility] Office Building [address] [place] [phone] Laurence Carranza NP Rheumatoid arthritis 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) (Primary Dx); High risk medication use 09/26/2024 Telephone [facility] Gastroenterology at [address] [place] [phone] Krissy Johnson GI Appointment Reschedule 09/25/2024 9:30 AM CDT Infusion [facility] Infusion Therapy [address] [place] [address] [address] [place] [address] Rheumatoid arthritis of multiple sites without rheumatoid factor (HCC) (Primary Dx) 08/06/2024 Results Follow-Up [facility] Primary Care at [address] [place] [address] Lam Nicholson MD Dexa Axial Skeleton Bone Density 1 Or 2 Site 08/04/2024 7:36 AM CDT - 08/04/2024 11:59 PM CDT Hospital Encounter [facility] 1 [place] [address] Postmenopausal estrogen deficiency Discharge Disposition: Discharge to home or self care 07/28/2024 9:30 AM CDT Infusion [facility] Infusion Therapy 1 [facility] [address] [place] [address] Rheumatoid arthritis of multiple sites [...] on file Legal Sex Female 7:05 PM SENIOR DIRECTOR MARKETING Gender Identity Female 04/03/2020 10:14 AM SENIOR DIRECTOR MARKETING Sexual Orientation Straight 11/16/2023 2: 11 PM [...] history exists Medical Devices Implanted Type Area Gypsum Calciner Device Identifier Shelf Expiration Date Model / Serial / Lot [employer] Jillian Contour Vl 6fr 22-30cm Taper Tip Bladder Albin Low Profile Stiff Latex Free 180-156-01 - [id number] Implanted:Qty: 1 on 10/22/2022 by Rosanne oLza MD at [facility] Stent Left: Ureter [employer] Jillian [id number] 08/23/2026 [id number] / / [id number] Set Implant [employer] [place] Drill Guide Punch Tap Achilles Pack - [id number] Implanted:Qty: 1 on 07/16/2017 by Gracia Lang DPM at [facility] Left: Heel [employer] 10/19/2018 [id number] / / [id number] Procedures Procedure Name Priority Date/Time Associated Diagnosis [...] Read Routine (OP Routine) 01/31/2024 9:33 AM SENIOR DIRECTOR MARKETING Screening mammogram, encounter for HEPATITIS C RNA, QUANTITATIVE, PCR Routine 02/05/2023 10:13 AM SENIOR DIRECTOR MARKETING from Last 3 Months or Most Recently Relevant to Health Maintenance Results * Cortisol (10/06/2024 7:25 AM CDT) Cortisol 10.5 4.8 - 19.5 mcg/dl Comment: Interpretive Data Normal Range: 4.8 - 19.5 mcg/dL; Evening: Half of morning value. This analyte undergoes marked diurnal variation. Ranges indicated apply to morning specimens. Current interpretive data was last revised 2018. Testing performed by: [facility], [address] [place] [address]., [id number] Blood 10/06/2024 7:25 AM CDT 10/06/2024 9:21 AM CDT us Lam Nicholson MD LAB BLOOD ORDERABLE S Final Result Performing Organization Address City/State/ZIP Co ga Phone Number [facility] [place] [place] 1 [facility] Department [place] [address] * eGFR (09/29/2024 10:44 AM [...] BLOOD ORDERAB[place] [address] [address]. [place] [address] * (ABNORMAL) Differential, auto (09/29/2024 10:44 AM [...] CDT 09/29/2024 11:01 AM CDT Laurence Carranza SUPPORT ASSISTANT LAB BLOOD ORDER[place] [address] [facility] [employer] [place], [place] [id number] * (ABNORMAL) CBC with auto differential (09/29/2024 10:44 AM CDT) WBC 10.11(H) 3.80 - 9.90 K/cumm Hgb 14.9 11.9 - 15.5 g/dL [facility] Hct 43.1 35.6 - 45.5 % [facility] Plt 282 150 - 400 K/cumm [facility] MPV 10.8 9.1 - 12.3 fL [facility] RBC 4.62 3.90 - 5.20 M/cumm [facility] MCV 93.3 81.3 - 96.4 fL [facility] MCH 32.3 27.1 - 33.3 pg [facility] MCHC 34.6 32.3 - 35.7 g/dL [facility] RDW CV 13.1 11.1 - 14.9 % [facility] RDW SD 44.7 35.7 - 48.1 fL [facility] NRBC abs 0.00 0.00 - 0.01 K/cumm [facility] Blood 09/29/2024 10:4 4 AM CDT 09/29/2024 11:01 AM CDT Laurence Carranza SUPPORT ASSISTANT LAB BLOOD ORDERAB[place] [address] [facility] [employer] [place], [place] [id number] * Erythrocyte sedimentation rate (09/29/2024 10:44 AM CDT) Pathologist [facility] Erythrocyte sedimentation rate 13 1 - 30 mm/hr Blood 09/29/2024 10:4 4 AM CDT 09/29/2024 11:01 AM CDT us Laurence Carranza SUPPORT ASSISTANT LAB BLOOD ORDERABLES Fi nal Result Performing Organization Address [facility] de Phone Number [facility] [address] [place] [facility] [place] [address] * CRP (acute phase) (09/29/2024 10:44 AM CDT) [facility] CRP <3.0 <=10.0 mg/L Blood 09/29/2024 10:4 4 AM CDT 09/29/2024 11:01 AM CDT Laurence Carranza SUPPORT ASSISTANT LAB BLOOD ORDERABLES Fi nal Result Performing Organization Address [facility] de Phone Number [facility] [address] [facility] [place] [address] * (ABNORMAL) Comprehensive metabolic panel (09/29/2024 10:44 AM CDT) [facility] Sodium 140 135 - 145 mmol/L Potassium, pl 4.7 3.3 - 4.9 mmol/L [facility] Comment:Hemolyzed; result ma y be falsely elevated. Chloride 105 97 - 110 mmol/L [facility] CO2 27 22 - 32 mmol/L [facility] Anion gap 8 2 - 15 mmol/L [facility] BUN 14 6 - 25 mg/dL [facility] Creatinine 0.58(L) 0.60 - 1.10 mg/dL [facility] Glucose 90 70 - 199 mg/dL [facility] Comment: Interpretive Data Fasting glucose >/= 126 [...] LAB BLOOD ORDERABLES nal Result [facility] [address] [facility]. [place] [address] * XR Sacroiliac Joints Less than 3 [...] with given history of: screening osteoporosis Postmenopausal Gypsum Calciner/Model: Tello Discovery SL (S/N 99905) Facility LSC value of 0.022 for the [...] Willard Messer M.D. MF: LAINA Report ID: [id number] Reading Location: [place] [address] Procedure Note Willard Messer MD - 08/04/2024 EXAM DESCRIPTION: DEXA AXIAL SKELETON BONE DENSITY 1 OR MORE SITES REASON FOR STUDY: 49 y/o year old F with given history of: screening osteoporosis Postmenopausal Gypsum Calciner/Model: Audiolife SL (S/N 09842) Facility LSC value of 0.022 for the [...] Willard Messer M.D. MF: LAINA Report ID: [id number] Reading Location: [place] [address] Lam Nicholson MD IM DXA PROCEDURES Final Result * Screening Mammogram Bilateral W Turner (01/31/2024 9:33 AM SENIOR DIRECTOR MARKETING) Anatomical Region Laterality Modality Breast Bilateral Mammography 01/31/2024 11:1 0 AM SENIOR DIRECTOR MARKETING Impressions 01/31/2024 11:10 AM SENIOR DIRECTOR MARKETING No evidence of malignancy in either breast. Management of any palpable abnormality should be based on clinical grounds. FINAL ASSESSMENT: BI-RADS Category 1: Negative. RECOMMENDATION: Recommend return for annual screening mammogram in 12 months. Electronically signed by: Nicky Ramirez M.D. Narrative 01/31/2024 11:10 AM SENIOR DIRECTOR MARKETING EXAMINATION: BILATERAL SCREENING MAMMOGRAM COMPARISON: Multiple prior [...] RNA PCR, quantitative Blood (02/05/2023 10:13 AM SENIOR DIRECTOR MARKETING) HCV RNA result Not Detected [facility] (JESS) Comment: The quantifiable range of this assay is 15 IU/mL to 100,000,000 IU/mL (1.18 log IU/mL to 8.00 log IU/mL). Testing was performed by the RIGO 6800 HCV Test ([employer] Testing performed at [facility] Current Interpretive Data was last revised on 2020 Testing performed by: [facility], [address] [facility], [place]., [address] Blood 02/05/2023 10:1 3 AM SENIOR DIRECTOR MARKETING 02/05/2023 5:52 PM SENIOR DIRECTOR MARKETING us Chema Smith MD LAB MICROBIOLOGY - GENERAL ORD ERABLES Final Result [facility] (JESS) 1 [facility] [place] [address] from Last 3 Months or Most Recently Relevant to Health Maintenance Insurance [facility] [id number] [facility] [id number] Advance Directives For more information, please contact: [phone] * Full Code (Latest Code Status on File) Date Activated Date Inactivated Comments 12/30/2018 1:41 AM 12/30/2018 10:46 PM * Full Code Date Activated Date Inactivated Comments 07/16/2017 3:40 PM 07/16/2017 6:30 PM Care Teams Rolling Machine Operator Automatic Relationship Specialty Start Date End Date Lam Nicholson MD [address] [facility] [address] [place] [address] PCP - General Family Practice 06/26/24 Paulino Souza MD Consulting Physician Cardiovascular Disease 10/24/22
[2024-10-25 16:32] LABS: Hematocrit 36.8 % (37.0-47.0); Hemoglobin 12.4 g/dL (12.0-15.0); Immature Granulocyte Percent A 0.6 % (0-0.5); Lymphocytes Absolute Auto 1.95 K/mm3 (0.9-3.2); Mean Corpuscular HGB Conc 33.7 g/dl (32-36); Mean Corpuscular Hemoglobin 31.4 pg (26-34); Mean Corpuscular Volume 93.2 fl (80-100); Nucleated Red Blood Cells Absolute Auto 0.000 K/mm3 (0.0-0.012); Nucleated Red Blood Cells Perc 0.0 % (0.0-0.2); Platelet Count Result 196 k/mm3 (150-375); Red Blood Count 3.95 M/mm3 (4.2-5.4); White Blood Count 18.9 K/mm3 (4.5-10.0)
[2024-10-25 16:38] LABS: Add Urine Microscopic? YES; Appearance Urine Clear (Clear); Glucose Urine UA Negative (Negative); Leukocyte Esterase Ur 1+ LEU/UL (Negative); Nitrate Urine Negative (Negative); Non Pathogenic Casts 0-2; Specific Grav Ur 1.019 (1.001-1.035)
[2024-10-25 16:44] LABS: Alanine Aminotransferase 50 U/L (6-35); Albumin Level 3.7 g/dL (3.5-5.1); Alkaline Phosphatase 88 U/L (38-126); Anion Gap 5 mmol/L (4-12); Aspartate Amino Transferase 49 U/L (14-36); Bilirubin,Total 0.8 mg/dL (0.2-1.3); Blood Urea Nitrogen 13 mg/dL (7-17); Calcium 8.8 mg/dL (8.4-10.2); Carbon Dioxide 22 mmol/L (22-30); Chloride 106 mmol/L (98-107); Estimated CRCL calculation 107 ml/min; Estimated Glomerular Filt Rate > 60; Glucose 118 mg/dL (65-110); INR 1.2; Potassium 3.8 mmol/L (3.4-5.0); Prothrombin Time 15.0 Seconds (11.1-14.7); Sodium 133 mmol/L (137-145); Total Protein 6.8 g/dL (6.3-8.2)
[2024-10-25 16:45] LABS: Partial Thromboplastin Time 32.9 Seconds (22.3-36.8)
[2024-10-25] MEDS: cefTRIAXone 1 GM in SODIUM CHLORIDE 0.9% IV 50 ML 100 ML IVPB (17:22)
[2024-10-25] MEDS: MORPHINE SULFATE (*CRX) 4 MG/ML INJ IV PUSH (17:22)
[2024-10-25] MEDS: SODIUM CHLORIDE 0.9% IV 1,000 ML 999 ML IV CONT (17:22)
[2024-10-25] MEDS: PROCHLORPERAZINE EDISYLATE 10 MG/2 ML VIAL IV PUSH (20:15)
[2024-10-25] MEDS: KETOROLAC 15 MG/ML VIAL (*BKC) IV PUSH (20:15)
== END 2024-10-25 21:05 | disposition home or self-care (01) ==
PROVIDERS: Emergency Provider Student in an Organized Health Care Education/Training Program; PCP Family Medicine
DX: N12 Tubulo-interstitial nephritis, not specified as acute or chronic (principal); N13.2 Hydronephrosis with renal and ureteral calculous obstruction; N28.81 Hypertrophy of kidney; N21.0 Calculus in bladder; D72.829 Elevated white blood cell count, unspecified; E66.01 Morbid (severe) obesity due to excess calories; Z68.42 Body mass index [BMI] 45.0-49.9, adult; G47.33 Obstructive sleep apnea (adult) (pediatric); F17.210 Nicotine dependence, cigarettes, uncomplicated; Z87.442 Personal history of urinary calculi
CPT/HCPCS: 36415; 74176; 80053; 81001; 83605; 85025; 85610; 85730; 87040; 87086; 93005; 96365; 96366; 96375; 99284; A9270; J0696; J0780; J1200; J1885; J2270; J7030

== ENCOUNTER 2025-01-17 14:06 | Emergency (ER) | payer OTHER, SELFPAY ==
--- NOTE | ~2025-01-17 | CT_ITS ---
Ju Tariq EXAMINATION: CT abdomen pelvis w con COMPARISON: None HISTORY: back pain/abd pain r/o appy,stone,pyelonephritis TECHNIQUE: Axial images were obtained through the abdomen, pelvis post administration of IV contrast. Oral contrast was also administered. Coronal reconstruction images were obtained from the axial views. CT scan performed using dose optimization techniques including the following automated exposure control; adjustment of mA and/or kV; use of iterative reconstruction technique. Automatic exposure control was used to reduce radiation dose. Permanent radiation dose record is archived to PACS. FINDINGS: CT abdomen: LUNG BASES: The lung bases are clear. The visualized portions of the heart and pericardium are unremarkable. LIVER: Moderate hepatic steatosis. SPLEEN: Unremarkable. KIDNEYS: Right Kidney: Right kidney midpole renal calculi the largest 2 , no hydronephrosis. Left Kidney: Left kidney lower pole renal calculi the largest 2 mm , no hydronephrosis. ADRENAL GLANDS: Unremarkable. PANCREAS: Mild atrophy of the pancreas. GALLBLADDER/BILIARY: Unremarkable. No biliary dilatation. STOMACH AND ESOPHAGUS: Visualized stomach and esophagus within normal limits. BOWEL/MESENTERY: No colitis or diverticulitis. Appendix appears small. Mesentery normal. Small bowel normal. ADENOPATHY/RETROPERITONEUM: No lymphadenopathy. AORTA/VASCULATURE: Normal caliber aorta. FREE FLUID OR FREE AIR: No free fluid.. CT pelvis: SOLID ORGANS/REPRODUCTIVE: Post hysterectomy. No adnexal mass. BLADDER: Within normal limits. OSSEOUS STRUCTURES: No acute osseous abnormality.No suspicious lesions. OVERLYING SOFT TISSUES: Unremarkable. IMPRESSION: 1. No etiology identified to explain the patient's symptoms. Follow-up suggested if symptoms persist. Reviewed, dictated and finalized at location P. IMPRESSION: 1. No etiology identified to explain the patient's symptoms. Follow-up suggeste d if symptoms persist.
--- OUTSIDE RECORDS SUMMARY | 2025-01-17 10:21 | XMS_ITS | Encounter Summary ---
Author Organization [facility] Healthcare Address [address] [place] [address] Care Team Providers Care Software Test Specialist Name Role Phone Paulino Souza MD Unavailable Lam Nicholson MD Primary Care Provi sriram Encounter Details Date Type Department Care Team (Late st Contact Info) Description 01/17/2025 10:21 AM CDT Hospital Encounter [facility] [address] [place] [address] Pyelonephritis Social History Tobacco Use Types Packs/Day Years Used Date Smoking Tobacco: Every Day Cigarettes 0.5 20 Smokeless Tobacco: Never Alcohol Use Standard Drinks/Week Comments Not Currently 0 (1 standard drink = 0.6 oz pur e alcohol) very rarely PHQ-2 Answer Date Recorded PHQ-2 Total Score (If total score is 3 or more points, staff should administer the PHQ-9) 0 01/08/2025 AUDIT-C Answer Date Recorded Frequency of Alcohol Consumption Not on file 01/12/2025 Q2: How many drinks containi ng alcohol do you have on a typical day when you are drinking? Patient does not drink Frequency of Binge Drinking Not on file 12/21 Personal Safety Answer Date Recorded Have you ever been in or are you currently in a harmful physical or emotional relationship or is someone making you feel afraid or unsafe? 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 Not on file Not on file Not on file documented as of this encounter Plan of Treatment Pending Results Name Type Priority Associated Diagnoses Date /Time Urine culture Urine, clean voided Microbiology Routine Pyelonephritis 01/17/2025 10:21 AM CDT Scheduled Orders Name Type Priority Associated Diagnoses Orde r Schedule Urine culture Urine, clean voided Microbiology Routine Pyelonephritis Once for 1 Occurrences starting 01/17/2025 until 01/17/2025 documented as of this encounter Visit Diagnoses Diagnosis Pyelonephritis Unspecified pyelonephritis documented in this encounter Care Teams Software Test Specialist Relationship Specialty Start Date End Date Lam Nicholson MD [address] [facility] [address] [place] [address] PCP - General Family Practice 06/26/24 Paulino Souza MD Consulting Physician Cardiovascular Disease 10/24/22 documented as of this encounter
--- OUTSIDE RECORDS SUMMARY | 2025-01-17 10:21 | XMS_ITS | Encounter Summary ---
Author Organization [facility] Healthcare Address [address] [place] [address] Care Team Providers Care Varnish Melter Name Role Phone Paulino Souza MD Unavailable Lam Nicholson MD Primary Care Provi sriram Encounter Details Date Type Department Care Team (Late st Contact Info) Description 01/17/2025 10:21 AM CDT Hospital Encounter [facility] [address] [place] [address] Pyelonephritis Social History Tobacco Use Types Packs/Day [...] on file Legal Sex Female 7:05 PM ARCADE ATTENDANT Gender Identity Female 04/03/2020 10:14 AM ARCADE ATTENDANT Sexual Orientation Straight 11/16/2023 2: 11 PM [...] pyelonephritis documented in this encounter Care Teams Varnish Melter Relationship Specialty Start Date End Date Lam Nicholson MD [address] [facility] [address] [place] [address] PCP - General Family Practice 06/26/24 Paulino Souza MD Consulting Physician Cardiovascular Disease 10/24/22 documented as of this encounter
--- OUTSIDE RECORDS SUMMARY | 2025-01-17 10:30 | XMS_ITS | Encounter Summary ---
Author Organization [facility] Healthcare Address [address] [place] [address] Care Team Providers Care Pharmacy Service Associate Name Role Phone Paulino Souza MD Unavailable [phone] Lam Nicholson MD Primary Care Provi sriram Reason for Visit * Reason Comments Fever Pt is here today wit h pelvic and back pain, with a Headache, fever, vomiting, urinary frequency, and neck pain. Onset is 2 days Encounter Details Date Type Department Care Team (Latest Contact Info) Description 01/17/2025 10:30 AM CDT Office Visit [facility] [place] [address] [place] [address] Paula Howard, NOHEMI [address] [facility] [address] [place] [address] Pyelonephritis (Primary Dx) Social History Tobacco Use Types Packs/Day Years [...] on file Legal Sex Female 7:05 PM GUIDEMAN Gender Identity Female 04/03/2020 10:14 AM GUIDEMAN Sexual Orientation Straight 11/16/2023 2: 11 PM CDT Occupation Industry Job Start Date Job End Date rn Not on file Not on file Not on file documented as of this encounter Last Filed Vital Signs Vital Sign Reading Time Taken Comments Blood Pressure 134/86 01/17/2025 10:04 AM CDT Pulse 91 01/17/2025 10:04 AM CDT Temperature 37.3 C (99.2 F) 01/17/2025 10:04 AM CDT Respiratory Rate 19 01/17/2025 10:04 AM CDT Oxygen Saturation 98% 01/17/2025 10:04 AM CDT Inhaled Oxygen Concentration - - Weight 120.7 kg (266 lb) 01/17/2025 10:04 AM CDT Height 160 cm (5' 3) 01/17/2025 10:04 AM CDT Body Mass Index 47.12 01/17/2025 10:04 AM CDT documented in this encounter Patient Instructions * Patient Instructions* Paula Howard NP - 01/17/2025 10:30 AM CDT Thank you for allowing me to take care of you today. Diagnosis pyelonephritis. Test: Point of care urine was positive for blood, protein, and leukocytes. A urine culture was collected and sent to the lab. We will call you with results. Prescribed cefTRIAXone (ROCEPHIN) 250 mg/mL intramuscular injection 1,000 mg cephalexin (KEFLEX) 500 mg capsule; Take 2 capsules (1,000 mg total) by mouth 3 (three) times a dayfor 7 days. Home care: Call your urologist and notify him of flank pain and fever. Complete your antibiotic. Do not hold your urine. Urinate as soon as you feel the need to go. Drink plenty of water and fluids. Avoid alcohol, caffeine and citrus juices, due to irritation. Wipe from front to back and wear cotton underwear. Try emptying your bladder before and after having sexual intercourse. Follow up with your PCP if you are not getting better. If you have severe back, flank or groin pain with nausea and vomiting or are unable to get comfortable from pain, please go to there ER for further treatment. If you need a primary provider please stop at the assistant front office manager for information. Red flags include worsening symptoms including pain, swelling, headache, dizziness, congestion, fever, shortness of breath, chest pain, nausea/vomiting, abdomen pain, back pain, muscle pain, decreased range of motion, numbness/tingling, weakness, fatigue. Follow up with your primary provider, this clinic, or if severe go to ER. If you have no improvement or worsening of your symptoms, please follow up with your Primary Care Provider, [facility] Care and or Emergency Room. I strive to provide you with EXCELLENT service. You may receive a survey after your visit today. If you cannot rate your experience as EXCELLENT, please let us know how we can improve and better meet your needs. Thank you for choosing [facility]! It was my pleasure to see you today, I hope you feel better soon! Paula Howard NP * Attachments The following attachments cannot be sent through Care Everywhere. * Kidney Infection (Vinyl Dipper) (Guinean) documented in this encounter Ordered Prescriptions Prescription Sig Dispense Quantity Refills Last Filled Start Date End Date cephalexin (KEFLEX) 500 mg capsuleIndications :Pyelonephritis Take 2 capsules (1,000 mg total) by mouth 3 (three) times a day for 7 days 42 capsule 01/17/2025 documented in this encounter Progress Notes * Paula Howard NP - 01/17/2025 10:30 AM CDT Images from the original note were not included. Subjective/Objective This patient has verbally consented to recording this visit in order to utilize AI technology in generating this note. Patient ID: Ju Tariq is a 49 y.o. female. Chief Complaint Fever (Pt is here today with pelvic and back pain, with a Headache, fever, vomiting, urinary frequency, and neck pain. Onset is 2 days) HPI History of Present Illness Ju Tariq is a 49 year old female with kidney stones and pyelonephritis who presents with severeright-sided pain and fever. She began experiencing severe right-sided pain around 8:00 AM on Wednesday, similar to previous kidneystone pain, with radiation around her side. She has a history of multiple stones on each side. She experienced vomiting on the way home due to the pain. She took Toradol and hydrocodone, prescribed by her urologist, along with Flomax. The pain lightened up, but she has not passed a stone yet. She has been experiencing fever, with a temperature reaching 103??F last night and currently at 102??F. She has been taking Tylenol and ibuprofen to manage the fever and pain, as she feels the pain is not severe enough to require hydrocodone or Toradol at this time. Her temperature decreased to 98-99??F last night but spiked again overnight, accompanied by chills. This morning, her temperature was 99.9??F. She has a history of pyelonephritis, with an episode in October and another three years ago, which required hospitalization for four days due to sepsis. Her urine tests have shown nitrites. Review of Systems Constitutional: Positive for chills and fever. Gastrointestinal: Positive for nausea and vomiting. Genitourinary: Positive for flank pain. All other systems reviewed and are negative. Physical Exam Vitals reviewed. Constitutional: Appearance: Normal appearance. She is not ill-appearing or toxic-appearing. HENT: Head: Normocephalic and atraumatic. Right Ear: External ear normal. Left Ear: External ear normal. Nose: Nose normal. Mouth/Throat: Mouth: Mucous membranes are moist. Pharynx: Oropharynx is clear. Cardiovascular: Rate and Rhythm: Normal rate and regular rhythm. Heart sounds: Normal heart sounds. Pulmonary: Effort: Pulmonary effort is normal. Breath sounds: Normal breath sounds. Abdominal: General: Bowel sounds are normal. Palpations: Abdomen is soft. Tenderness: There is right CVA tenderness. There is no left CVA tenderness. Musculoskeletal: General: Normal range of motion. Skin: General: Skin is warm and dry. Capillary Refill: Capillary refill takes less than 2 seconds. Neurological: General: No focal deficit present. Mental Status: She is alert and oriented to person, place, and time. Vitals: 01/17/25 1004 BP: 134/86 Pulse: 91 Resp: 19 Temp: 37.3 ??C (99.2 ??F) SpO2: 98% Weight: 120.7 kg (266 lb) Height: 160 cm (5' 3) Assessment & Plan Pyelonephritis 12/29/2024 EGFR greater than 90 Point of care urine is positive for blood, protein, and leukocytes. Urine culture collected and sent to the lab. We will contact patient with results Dr. Castillo contacted regarding patient's symptoms, agreeable with plan Rocephin 1 g IM given in clinic Prescribed Keflex 1 g t.i.d. for 7 days Patient to contact urologist and notify of fever and flank pain Discussed importance of compliance of antibiotics and possibility of change depending on culture results and susceptibilities Concern for pyelo and stone given patient's symptoms. Patient requests to avoid going to the emergency room despite advice to go, states that she is feeling better. Blood pressure and heart rate within normal limits. After discussion of ER verses attempting treatment at home, patient requests to attempt treatment at home Strict ER precautions provided monitor urine for foul odor, color change, hematuria, cloudiness, change in frequency or urgency symptoms warranting ED presentation: Lightheadedness, tachycardia, severe weakness and fatigue, inability to maintain oral intake, confusion, fever greater than 100.9 ?? for more than 4 hours w/o improvement w/ antipyretics f/u with urologist if symptoms do not improve in 2 days Orders: POCT urinalysis dipstick Urine culture Urine, clean voided; Future cefTRIAXone (ROCEPHIN) 250 mg/mL intramuscular injection 1,000 mg cephalexin (KEFLEX) 500 mg capsule; Take 2 capsules (1,000 mg total) by mouth 3 (three) times a dayfor 7 days Assessment & Plan Urinary tract infection with right-sided nephrolithiasis Severe right-sided pain likely from nephrolithiasis. Fever, vomiting, chills suggest pyelonephritisor early sepsis. Urinalysis confirms UTI. History of pyelonephritis and sepsis with kidney stones. High risk for urosepsis. - Refer to emergency room for IV antibiotics due to high fever and sepsis risk. - Contact Dr. Castillo to discuss home treatment options, but prioritize emergency room referral. Recent Results (from the past 4 hours) POCT urinalysis dipstick Collection Time: 01/17/25 10:20 AM Result Value Ref Range Color, Urine, POC [place] Clarity, ur, POC Cloudy (A) Clear Glucose, ur, POC Negative Negative Bilirubin, ur, POC Negative Negative Ketones, ur, POC Negative Negative Specific [place], POC 1.020 1.003 - 1.030 Blood, ur, POC Large (A) Negative pH, ur, POC 7.0 5.0 - 8.0 Protein, ur, POC 100. (A) Negative Urobilinogen, urine, POC 2.0 (A) 0.2 - 1.0 mg/dL Nitrite, ur, POC Negative Negative Leukocytes, ur, POC Trace (A) Negative Lot Number [id number] Disposition Treatment plan including expectations, follow up, and return precautions discussed with patient/parent, verbalizes understanding. Medication dosage, use, and potential adverse reactions discussed with patient/parent. Advised to follow up with PCP if symptoms do not resolve as expected or sooner if condition worsens. Signs/symptoms warranting ER evaluation reviewed. Patient and/or guardian was given an opportunity to ask questions, questions answered. Patient Education Call your urologist and notify him of flank pain and fever. Complete your antibiotic. Do not hold your urine. Urinate as soon as you feel the need to go. Drink plenty of water and fluids. Avoid alcohol, caffeine and citrus juices, due to irritation. Wipe from front to back and wear cotton underwear. Try emptying your bladder before and after having sexual intercourse. Follow up with your PCP if you are not getting better. If you have severe back, flank or groin pain with nausea and vomiting or are unable to get comfortable from pain, please go to there ER for further treatment. Paula Howard NP 01/17/2025 documented in this encounter Plan of Treatment Pending Results Name Type Priority Associated Diagnoses Date /Time Urine culture Urine, clean voided Microbiology Routine Pyelonephritis 01/17/2025 10:21 AM CDT Scheduled Orders Name Type Priority Associated Diagnoses Orde r Schedule Urine culture Urine, clean voided Microbiology Routine Pyelonephritis Expected: 01/20/2025, Expires: 01/17/2026 documented as of this encounter Procedures Procedure Name Priority Date/Time Associated Diagnosis Comments POCT URINALYSIS DIPSTICK Routine 01/17/2025 10:20 AM CDT Pyelonephritis documented in this encounter Results * (ABNORMAL) POCT urinalysis dipstick (01/17/2025 10:20 AM CDT) Color, Urine, POC [place] Clarity, ur, POC Cloudy(A) Clear Glucose, ur, POC Negative Negative Bilirubin, ur, POC Negative Negative Ketones, ur, POC Negative Negative Specific [place], POC 1.020 1.003 - 1.030 Blood, ur, POC Large(A) Negative pH, ur, POC 7.0 5.0 - 8.0 Protein, ur, POC 100.(A) Negative Urobilinogen, urine, POC 2.0(A) 0.2 - 1.0 mg/dL Nitrite, ur, POC Negative Negative Leukocytes, ur, POC Trace(A) Negative Lot Number [id number] Urine 01/17/2025 10:2 0 AM CDT Paula Howard NP POINT OF CARE TEST ORDERABLES Final Result documented in this encounter Visit Diagnoses Diagnosis Pyelonephritis- Primary Unspecified pyelonephritis documented in this encounter Administered Medications Inactive Administered Medications - up to 3 most recent administrations Medication Order MAR Action Action Date Dose Rate Site cefTRIAXone (ROCEPHIN) 250 mg/mL intramuscular injection 1,000 mg 1,000 mg, intramuscular, Once, On Wed01/17/25 at 1130, For 1 dose, Dilute with lidocaine 1.8 ml Dilute vial with 1.8 mL of sterile water for a concentration of 250 mg/mL., Indications: Urinary Tract/Genitourinary InfectionIndications:Urina ry Tract/Genitourinary Infection Given 01/17/2025 10:56 AM CDT 1,000 mg Other (Comment) documented in this encounter Orders Medications Ordered That Mamadou ht Not Have Been Administered Count Last Ordered Date First Ordered Date cefTRIAXone (ROCEPHIN) 250 m g/mL intramuscular injection 1,000 mg 1 01/17/2025 documented in this encounter Care Teams Pharmacy Service Associate Relationship Specialty Start Date End Date Lam Nicholson MD [id number] [address] PCP - General Family Practice 06/26/24 Paulino Souza MD Consulting Physician Cardiovascular Disease 10/24/22 documented as of this encounter
--- OUTSIDE RECORDS SUMMARY | 2025-01-17 10:30 | XMS_ITS | Encounter Summary ---
Author Organization [facility] Healthcare Address [address] [place] [address] Care Team Providers Care Insurance Account Specialist Name Role Phone Paulino Souza MD Unavailable [phone] Lam Nicholson MD Primary Care Provi sriram Reason for Visit * Reason Comments Fever Pt is here today wit h pelvic and back pain, with a Headache, fever, vomiting, urinary frequency, and neck pain. Onset is 2 days Encounter Details Date Type Department Care Team (Latest Contact Info) Description 01/17/2025 10:30 AM CDT Office Visit [facility] [place] [address] [place] [address] Paula Howard, NOHEMI [address] [facility] [address] [place] [address] Pyelonephritis (Primary Dx) Social History [...] on file Legal Sex Female 7:05 PM MACHINE SET UP Gender Identity Female 04/03/2020 10:14 AM MACHINE SET UP Sexual Orientation Straight 11/16/2023 2: 11 PM [...] a primary provider please stop at the assignment desk editor for information. Red flags include worsening symptoms [...] follow up with your Primary Care Provider, [facility] Care and or Emergency Room. I strive to provide you with EXCELLENT service. You may receive a survey after your visit today. If you cannot rate your experience as EXCELLENT, please let us know how we can improve and better meet your needs. Thank you for choosing [facility]! It was my pleasure to see you today, I hope you feel better soon! Paula Howard NP * Attachments The following attachments cannot be sent through Care Everywhere. * Kidney Infection ([place]) (Chinese) documented in this encounter Ordered Prescriptions Prescription [...] Result Value Ref Range Color, Urine, POC [place] Clarity, ur, POC Cloudy (A) Clear Glucose, ur, POC Negative Negative Bilirubin, ur, POC Negative Negative Ketones, ur, POC Negative Negative Specific [place], POC 1.020 1.003 - 1.030 Blood, ur, POC Large (A) Negative pH, ur, POC 7.0 5.0 - 8.0 Protein, ur, POC 100. (A) Negative Urobilinogen, urine, POC 2.0 (A) 0.2 - 1.0 mg/dL Nitrite, ur, POC Negative Negative Leukocytes, ur, POC Trace (A) Negative Lot Number [id number] Disposition Treatment plan including expectations, follow up, [...] (01/17/2025 10:20 AM CDT) Color, Urine, POC [place] Clarity, ur, POC Cloudy(A) Clear Glucose, ur, POC Negative Negative Bilirubin, ur, POC Negative Negative Ketones, ur, POC Negative Negative Specific [place], POC 1.020 1.003 - 1.030 Blood, ur, POC Large(A) Negative pH, ur, POC 7.0 5.0 - 8.0 Protein, ur, POC 100.(A) Negative Urobilinogen, urine, POC 2.0(A) 0.2 - 1.0 mg/dL Nitrite, ur, POC Negative Negative Leukocytes, ur, POC Trace(A) Negative Lot Number [id number] Urine 01/17/2025 10:2 0 AM CDT Paula [...] 01/17/2025 documented in this encounter Care Teams Insurance Account Specialist Relationship Specialty Start Date End Date Lam Nicholson MD [id number] [address] PCP - General Family Practice 06/26/24 Paulino Souza MD Consulting Physician Cardiovascular Disease 10/24/22 documented as of this encounter
[2025-01-17 14:30] VITALS: BP 137/64; PULSE 88; RESP 16; TEMP 36.4; O2SAT 96
--- NOTE | 2025-01-17 15:44 | ED.ABDPAIN ---
HPI - Abdominal Pain General Chief Complaint: Fever <Donn Burger APRN - Last Filed: 01/17/25 15:46> Stated Complaint: back pain, fever <Donn Burger APRN - Last Filed: 01/17/25 15:46> Time Seen by Provider: 01/17/25 15:44 <Donn Burger APRN - Last Filed: 01/17/25 15:46> Focused HPI: Ju is a 49-year-old female patient presenting to the emergency room today with complaints of bilateral back pain radiating into the right lower quadrant/pelvic area. She contacted her urologist and he wanted her to be seen to rule out pyelo nephritis. Her symptoms started on Wednesday of this week. Highest fever was 103? F. has been taking Tylenol and Motrin as needed. GENERAL: Well-appearing, morbidly obese, and in no acute distress. HEAD: Normocephalic, atraumatic. CHEST: Clear to auscultation. No respiratory distress. HEART: Regular rate and rhythm. NEURO: Alert and oriented x3. Patient screened in triage and initial orders placed. Additional care and disposition to be based upon diagnostic testing and treatment. <Donn Burger APRN - Last Filed: 01/17/25 15:46> Source: patient <Donn Burger APRN - Last Filed: 01/17/25 15:46> Mode of arrival: ambulatory <Donn Burger APRN - Last Filed: 01/17/25 15:46> Limitations: no limitations <Donn Burger APRN - Last Filed: 01/17/25 15:46> Related Data Home Medications: Home Medications ?Medication ?Instructions ?Recorded ?Confirmed ?Last Taken ?Type ketorolac 10 mg tablet 10 mg PO Q6H PRN Pain 11/10/22 10/24/24 11/05/22 History lansoprazole 30 mg capsule,delayed 30 mg PO DAILY 11/10/22 10/24/24 11/11/22 History release olmesartan 20 mg tablet 20 mg PO DAILY 11/10/22 10/24/24 11/11/22 History ondansetron 4 mg disintegrating 4 mg translingual PRN PRN Nausea 11/10/22 10/24/24 11/11/22 History tablet multivitamin (Daily Multi-Vitamin 1 tablet PO DAILY 10/24/24 10/24/24 Unknown History tablet) tamsulosin 0.4 mg capsule 0.4 mg PO HS 10/24/24 10/24/24 Unknown History <Donn Burger APRN - Last Filed: 01/17/25 15:46> Allergies/Adverse Reactions: Allergies Allergy/AdvReac Type Severity Reaction Status Date / Time strawberry Allergy Severe Anaphylaxis Verified 10/25/24 15:21 adhesive tape AdvReac Unknown Blister Verified 10/25/24 15:21 azathioprine (From Imuran) AdvReac Unknown Vomiting Verified 10/25/24 15:21 <Donn Burger APRN - Last Filed: 01/17/25 15:46> Review of Systems Review of Systems: All systems reviewed & are unremarkable except as noted in HPI and below <Zina Hicks APRN - Last Filed: 01/17/25 18:55> [facility], [facility] Past Medical History Medical History: Medical History HUMERA (obstructive sleep apnea) Morbid obesity <Donn Burger APRN - Last Filed: 01/17/25 15:46> Social History Social History: Social History Smoking packs per day: 1 Smoking cigarettes per day: 20.0 Years smoked: 20 Smoking pack-years: 20.00 Smoking status: Current every day smoker Tobacco type: cigarettes Second hand tobacco smoke exposure: Yes Alcohol intake: current Alcohol use details: 1 per year Substance use: never Substance use type: does not use Living arrangements: with family Spiritual care concerns: No <PAKO Valdovinos Last Filed: 01/17/25 15:46> Exam Narrative: GENERAL: Well appearing, obese, non-toxic, in no acute distress. HEAD: Normocephalic, atraumatic. NECK: Supple. No adenopathy, no masses. RESPIRATORY: Airway patent, respirations nonlabored. Clear to auscultation bilaterally, no rales, rhonchi, wheezing. CARDIOVASCULAR: Regular rate and rhythm without murmurs, rubs, or gallops. Peripheral pulses 2+ and equal bilaterally. ABDOMINAL: Soft, nontender, nondistended, no hepatosplenomegaly. Normoactive BS. MUSCULOSKELETAL: Moves all extremities. Strength/ROM intact without gross deformities. SKIN: Warm, dry, normal color. No rashes. NEURO: A&O X3. Speech clear. Cranial nerves II-XII intact. No ataxic movements. PSYCHIATRIC: Appropriate mood and affect. Normal interaction. <Zina Hicks, INDUSTRIAL HEALTH ENGINEER - Last Filed: 01/17/25 18:55> Course Vital Signs Vital signs: Vital Signs Temperature 36.4 C 01/17/25 14:30 Pulse Rate 88 01/17/25 14:30 Respiratory Rate 16 01/17/25 14:30 Blood Pressure 137/64 01/17/25 14:30 Pulse Oximetry 96 01/17/25 14:30 Oxygen Delivery Room Air 01/17/25 14:30 Temperature 36.7 C 01/17/25 16:39 Pulse Rate 76 01/17/25 16:39 Respiratory Rate 14 01/17/25 16:39 Blood Pressure 113/68 01/17/25 16:39 Pulse Oximetry 98 01/17/25 16:39 Oxygen Delivery Room Air 01/17/25 14:30 <Donn Burger, INDUSTRIAL HEALTH ENGINEER - Last Filed: 01/17/25 15:46> Vital Signs Temperature 36.4 C 01/17/25 14:30 Pulse Rate 88 01/17/25 14:30 Respiratory Rate 16 01/17/25 14:30 Blood Pressure 137/64 01/17/25 14:30 Pulse Oximetry 96 01/17/25 14:30 Oxygen Delivery Room Air 01/17/25 14:30 Temperature 36.7 C 01/17/25 16:39 Pulse Rate 76 01/17/25 16:39 Respiratory Rate 14 01/17/25 16:39 Blood Pressure 113/68 01/17/25 16:39 Pulse Oximetry 98 01/17/25 16:39 Oxygen Delivery Room Air 01/17/25 14:30 <Zina Hicks, INDUSTRIAL HEALTH ENGINEER - Last Filed: 01/17/25 18:55> MDM - Abdominal Pain MDM Narrative Medical decision making narrative: Ju is a 49-year-old female patient presenting to the emergency room today with complaints of bilateral back pain radiating into the right lower quadrant/pelvic area. She contacted her urologist and he wanted her to be seen to rule out pyelo nephritis. Her symptoms started on Wednesday of this week. Highest fever was 103? F. has been taking Tylenol and Motrin as needed. Labs Ordered: CBC, CMP, UA, lactic acid Imaging Ordered: CT abdomen pelvis Medications Ordered: None necessary Results: Pt's CT scan indicates CT abdomen: LUNG BASES: The lung bases are clear. The visualized portions of the heart and pericardium are unremarkable. LIVER: Moderate hepatic steatosis. SPLEEN: Unremarkable. KIDNEYS: Right Kidney: Right kidney midpole renal calculi the largest 2 , no hydronephrosis. Left Kidney: Left kidney lower pole renal calculi the largest 2 mm , no hydronephrosis. ADRENAL GLANDS: Unremarkable. PANCREAS: Mild atrophy of the pancreas. GALLBLADDER/BILIARY: Unremarkable. No biliary dilatation. STOMACH AND ESOPHAGUS: Visualized stomach and esophagus within normal limits. BOWEL/MESENTERY: No colitis or diverticulitis. Appendix appears small. Mesentery normal. Small bowel normal. ADENOPATHY/RETROPERITONEUM: No lymphadenopathy. AORTA/VASCULATURE: Normal caliber aorta. FREE FLUID OR FREE AIR: No free fluid.. CT pelvis: SOLID ORGANS/REPRODUCTIVE: Post hysterectomy. No adnexal mass. BLADDER: Within normal limits. OSSEOUS STRUCTURES: No acute osseous abnormality.No suspicious lesions. OVERLYING SOFT TISSUES: Unremarkable. Diagnosis: hematuria, urinary tract infection Risks: HEART score, PECARN score, CURB-65 score Consults: urology (outpatient), Dr. Perdue, already established Patient Education/Shared MDM: Results of lab work and imaging shared with patient. She reports her pain is better at this time. Extensive discussion between FULL STACK DEVELOPER and pt regarding appropriateness of discharge versus admission. Pt would like to be discharged home with oral antibiotics and pain medication. She was strongly advised to maintain hydration status upon discharge and follow-up with her urologist as soon as possible. Pt will be discharged home with a prescription for [place] and Zofran. She reports she already has a prescription for Flomax And Keflex. Strict return precautions provided. Patient verbalized understanding and is in agreement with plan. Vital signs stable at time of discharge. All questions answered. <Zina Hicks, INDUSTRIAL HEALTH ENGINEER - Last Filed: 01/17/25 18:55> Differential Diagnosis Differential diagnosis: Likely abdominal pain, calculus of kidney and other ( Pyelonephritis, urinary tract infection) <Zina Hicks, INDUSTRIAL HEALTH ENGINEER - Last Filed: 01/17/25 18:55> Lab Data Attestation: I reviewed the patient's lab results. <Zina Hicks, INDUSTRIAL HEALTH ENGINEER - Last Filed: 01/17/25 18:55> Result diagrams: 01/17/25 15:40 01/17/25 15:40 <Donn Burger, INDUSTRIAL HEALTH ENGINEER - Last Filed: 01/17/25 15:46> Labs: Lab Results 01/17/25 01/17/25 Range/Units 15:40 16:51 WBC 20.3 H (4.5-10.0) K/mm3 RBC 4.42 (4.2-5.4) M/mm3 Hgb 13.6 (12.0-15.0) g/dL Hct 40.3 (37.0-47.0) % MCV 91.2 (80-100) fl MCH 30.8 (26-34) pg MCHC 33.7 (32-36) g/dl RDW 13.5 (11.5-14.5) % Plt Count 224 (150-375) k/mm3 MPV 10.5 H (7.4-10.4) fl Immature Gran % (Auto) Not Reportable Neut % (Auto) Not Reportable Lymph % (Auto) Not Reportable [place] % (Auto) Not Reportable Eos % (Auto) Not Reportable Baso % (Auto) Not Reportable Lymph # (Auto) Not Reportable [place] # (Auto) Not Reportable Eos # (Auto) Not Reportable Baso # (Auto) Not Reportable Abs Immat Gran (auto) Not Reportable Absolute Neuts (auto) Not Reportable Absolute Nucleated RBC Not Reportable Total Counted 100 Neutrophils % (Manual) 75 H (46-73) % Band Neutrophils % 0 (0-6) % Lymphocytes % (Manual) 19.0 (18-44) % Monocytes % (Manual) 6 (3-9) % Nucleated RBC % Not Reportable Abs Neuts (Manual) 15.22 H (1.3-6.7) K/mm3 Abs Lymphs (Manual) 3.85 (1.1-4.5) K/mm3 Abs Monocytes (Manual) 1.21 H (0.1-0.90) K/mm3 Platelet Estimate Adequate (Adequate) Schistocytes None seen Sodium 138 (137-145) mmol/L Potassium 3.7 (3.4-5.0) mmol/L Chloride 107 (98-107) mmol/L Carbon Dioxide 23 (22-30) mmol/L Anion Gap 8 (4-12) mmol/L BUN 16 (7-17) mg/dL Creatinine 0.77 (0.7-1.0) mg/dL Estim Creat Clear Calc 97 ml/min Estimated GFR > 60 (59 - ) Glucose 120 H (65-110) mg/dL Lactic Acid 1.2 (0.7-2.0) mmol/L Calcium 9.3 (8.4-10.2) mg/dL Total Bilirubin 0.6 (0.2-1.3) mg/dL AST 40 H (14-36) U/L ALT 38 H (6-35) U/L Alkaline Phosphatase 87 (38-126) U/L Total Protein 7.6 (6.3-8.2) g/dL Albumin 4.1 (3.5-5.1) g/dL Urine Color Yellow (Yellow) Urine Appearance Cloudy H (Clear) Urine pH 5.5 (5.0-9.0) Ur Specific [place] 1.017 (1.001-1.035) Urine Protein 1+ H (Negative) mg/dL Urine Glucose (UA) Negative (Negative) mg/dL Urine Ketones Negative (Negative) mg/dL Ur Blood (Man) 3+ H (Negative) Urine Nitrate Negative (Negative) Urine Bilirubin Negative (Negative) Urine Urobilinogen 1.0 (<2.0) mg/dL Leukocyte Esterase Rfl 2+ H (Negative) ELIESER/UL Urine RBC 21-50 H (0-2) /hpf Urine WBC 21-50 H (0-3) /hpf Ur Squamous Epith Cells Few (Few) /hpf Urine Bacteria None seen /hpf Urine Casts 0-2 <Donn Burger, INDUSTRIAL HEALTH ENGINEER - Last Filed: 01/17/25 15:46> Lab Results 01/17/25 01/17/25 Range/Units 15:40 16:51 WBC 20.3 H (4.5-10.0) K/mm3 RBC 4.42 (4.2-5.4) M/mm3 Hgb 13.6 (12.0-15.0) g/dL Hct 40.3 (37.0-47.0) % MCV 91.2 (80-100) fl MCH 30.8 (26-34) pg MCHC 33.7 (32-36) g/dl RDW 13.5 (11.5-14.5) % Plt Count 224 (150-375) k/mm3 MPV 10.5 H (7.4-10.4) fl Immature Gran % (Auto) Not Reportable Neut % (Auto) Not Reportable Lymph % (Auto) Not Reportable [place] % (Auto) Not Reportable Eos % (Auto) Not Reportable Baso % (Auto) Not Reportable Lymph # (Auto) Not Reportable [place] # (Auto) Not Reportable Eos # (Auto) Not Reportable Baso # (Auto) Not Reportable Abs Immat Gran (auto) Not Reportable Absolute Neuts (auto) Not Reportable Absolute Nucleated RBC Not Reportable Total Counted 100 Neutrophils % (Manual) 75 H (46-73) % Band Neutrophils % 0 (0-6) % Lymphocytes % (Manual) 19.0 (18-44) % Monocytes % (Manual) 6 (3-9) % Nucleated RBC % Not Reportable Abs Neuts (Manual) 15.22 H (1.3-6.7) K/mm3 Abs Lymphs (Manual) 3.85 (1.1-4.5) K/mm3 Abs Monocytes (Manual) 1.21 H (0.1-0.90) K/mm3 Platelet Estimate Adequate (Adequate) Schistocytes None seen Sodium 138 (137-145) mmol/L Potassium 3.7 (3.4-5.0) mmol/L Chloride 107 (98-107) mmol/L Carbon Dioxide 23 (22-30) mmol/L Anion Gap 8 (4-12) mmol/L BUN 16 (7-17) mg/dL Creatinine 0.77 (0.7-1.0) mg/dL Estim Creat Clear Calc 97 ml/min Estimated GFR > 60 (59 - ) Glucose 120 H (65-110) mg/dL Lactic Acid 1.2 (0.7-2.0) mmol/L Calcium 9.3 (8.4-10.2) mg/dL Total Bilirubin 0.6 (0.2-1.3) mg/dL AST 40 H (14-36) U/L ALT 38 H (6-35) U/L Alkaline Phosphatase 87 (38-126) U/L Total Protein 7.6 (6.3-8.2) g/dL Albumin 4.1 (3.5-5.1) g/dL Urine Color Yellow (Yellow) Urine Appearance Cloudy H (Clear) Urine pH 5.5 (5.0-9.0) Ur Specific [place] 1.017 (1.001-1.035) Urine Protein 1+ H (Negative) mg/dL Urine Glucose (UA) Negative (Negative) mg/dL Urine Ketones Negative (Negative) mg/dL Ur Blood (Man) 3+ H (Negative) Urine Nitrate Negative (Negative) Urine Bilirubin Negative (Negative) Urine Urobilinogen 1.0 (<2.0) mg/dL Leukocyte Esterase Rfl 2+ H (Negative) ELIESER/UL Urine RBC 21-50 H (0-2) /hpf Urine WBC 21-50 H (0-3) /hpf Ur Squamous Epith Cells Few (Few) /hpf Urine Bacteria None seen /hpf Urine Casts 0-2 <Zina Hicks APRN - Last Filed: 01/17/25 18:55> Imaging Data Attestation: I personally reviewed and interpreted this imaging study as follows: <Zina Hicks APRN - Last Filed: 01/17/25 18:55> Radiologist's impression: ITS Impressions Abdomen/Pelvis CT 01/17/25 17:57 IMPRESSION: 1. No etiology identified to explain the patient's symptoms. Follow-up suggested if symptoms persist. <Donn Burger APRN - Last Filed: 01/17/25 15:46> ITS Impressions Abdomen/Pelvis CT 01/17/25 17:57 IMPRESSION: 1. No etiology identified to explain the patient's symptoms. Follow-up suggested if symptoms persist. <Zina Hicks APRN - Last Filed: 01/17/25 18:55> Discharge Plan Discharge Clinical Impression: Bilateral ureteral calculi, Urinary tract infection, Subjective fever <Donn Burger APRN - Last Filed: 01/17/25 15:46> Patient Disposition: Home <Donn Burger APRN - Last Filed: 01/17/25 15:46> Condition: Stable <Donn Burger APRN - Last Filed: 01/17/25 15:46> Instructions: Antibiotic Form, Kidney Infection (ED) <Donn Burger APRN - Last Filed: 01/17/25 15:46> Additional Instructions: Please return to the ER with any worsening symptoms, including ongoing fevers, increased flank pain, severe abdominal pain. Follow-up with your urologist in the next 2-3 days. Take all medications as prescribed, including regularly scheduled medications. Please complete your full dose of antibiotics. Remember to drink lots of water. <Donn Burger APRN - Last Filed: 01/17/25 15:46> Patient Language: Burmese <Donn Burger APRN - Last Filed: 01/17/25 15:46> Prescriptions: New hydrocodone-acetaminophen 5-325 mg tablet 1 tablet PO Q8H PRN (Reason: pain) Qty: 20 0RF ondansetron 4 mg tablet,disintegrating 4 mg PO Q8H Qty: 30 0RF No Action multivitamin [Daily Multi-Vitamin] Tablet 1 tablet PO DAILY tamsulosin 0.4 mg capsule 0.4 mg PO HS ketorolac 10 mg tablet 10 mg PO Q6H PRN (Reason: Pain) lansoprazole 30 mg Capsule,Delayed Release(Dr/Ec) 30 mg PO DAILY ondansetron 4 mg tablet,disintegrating 4 mg translingual PRN PRN (Reason: Nausea) olmesartan 20 mg tablet 20 mg PO DAILY hydrocodone-acetaminophen 5-325 mg tablet 1 - 2 tablet PO Q6H PRN (Reason: pain) Qty: 20 0RF ibuprofen 600 mg tablet 600 mg PO TID PRN (Reason: pain) Qty: 30 0RF ondansetron 4 mg tablet,disintegrating 4 mg PO Q8H PRN (Reason: nausea and vomiting) Qty: 7 0RF acetaminophen 500 mg capsule 1,000 mg PO Q6H PRN (Reason: pain) Qty: 30 0RF cefpodoxime 200 mg tablet 200 mg PO BID 10 Days Qty: 20 0RF Rx Instructions: must administer with a meal/food <Donn Burger APRN - Last Filed: 01/17/25 15:46> Follow-up/Referrals: Rufino Perdue MD [Physician, Urology] Lyn,Lam Hernandez MD [Primary Care Provider, Unknown] <Donn Burger APRN - Last Filed: 01/17/25 15:46> Stand Alone Forms: Work/School Release IP <Donn Burger APRN - Last Filed: 01/17/25 15:46> Time of Disposition: 18:55 <Donn Burger APRN - Last Filed: 01/17/25 15:46> 18:55 <Zina Hicks APRN - Last Filed: 01/17/25 18:55>
[2025-01-17 15:46] LABS: Hematocrit 40.3 % (37.0-47.0); Hemoglobin 13.6 g/dL (12.0-15.0); Mean Corpuscular HGB Conc 33.7 g/dl (32-36); Mean Corpuscular Hemoglobin 30.8 pg (26-34); Mean Corpuscular Volume 91.2 fl (80-100); Platelet Count Result 224 k/mm3 (150-375); Red Blood Count 4.42 M/mm3 (4.2-5.4); White Blood Count 20.3 K/mm3 (4.5-10.0)
--- OUTSIDE RECORDS SUMMARY | 2025-01-17 15:53 | XMS_ITS | Data Portability ---
Author Organization [facility], Main Office Address [address] [facility] [address] [place] [address] Assessment No assessment recorded. Plan of Treatment Reminders Order Date Submit Date Provider Last Modified By Organization Details Last Modified Time Details Appointments None record ed. Lab None record ed. Referral None record ed. Procedures biopsy , skin (PROC) 020 07/21/19 20 [email or web address] Not available 0 14:39:33 Surgeries None record ed. Imaging None record ed. Medication Orders None record ed. Patient TargetsNo targets recorded. Patient Instructions Encounter Date Encounter Id Patient Instructions Last Modified By Organization Details Last Modified Time 07/21/2019 [id number] Will call with path. [email or web address] Not available 07/21/2019 14:40:48 Reason for Referral None Reported. Results Created Date Observation Date Name Description Value Unit Range Abnormal Flag Note LastModifiedBy Organization Detail LastModifiedTime Result Notes None recorded. Procedures Surgical History Date Name Laterality Status Provider Name and Address Organization Details Recorded Time 07/21/2019 Shave Biopsy completed Tanvir Sagastume MD [address] [facility] [address], [place], [address], [facility] 07/21/2019 14:40:12 Imaging Results None recorded. Procedure Notes None recorded. Medical Equipment None Reported. Allergies Allergen ID Allergen Name Allergen Category Reaction Reaction Severity Criticality Documentation Date Start Date Code Code System Note Provider Name and Address Organization Details Recorded Time 2245 codeine medicatio n Not available Not available Not available 05/05/2019 9593 RxNorm Scott [facility] 0 14:49:02 Medications Name Sig Start Date Stop Date Status Note LastModified by Organization Details LastModified Time losartan 50 mg tablet active Not Available Not Available Not Available atorvastatin 20 mg tablet active Not Available Not Available Not Available azithromycin 250 mg tablet TAKE 2 TABLETS BY MOUTH ON DAY 1 AND THEN TAKE 1 TABLET BY MOUTH ONCE A DAY ON DAY 2 THROUGH DAY 5 active Not Available Not Available No t Available fluconazole 150 mg tablet TAKE 1 TABLET BY MOUTH ONCE DAILY FOR 2 DAYS active Not Available Not Available No t Available prednisone 5 mg tablet active Not Available Not Available No t Available sulfamethoxazo le 800 mg-trimethopri m 160 mg tablet TAKE 1 TABLET BY MOUTH TWICE DAILY FOR 3 DAYS active Not Available Not Available No t Available leflunomide 20 mg tablet active Not Available Not Available No t Available tramadol 50 mg tablet active Not Available Not Available Not Available triamcinolone acetonide 0.1 % topical cream APPLY A THIN LAYER TO THE AFFECTED AREA(S) BY TOPICAL ROUTE 2 TIMES PER DAY. Never to face. active Not Available Not Available No t Available prednisone 2.5 mg tablet TAKE 3 TABLETS BY MOUTH ONCE DAILY active Not Available Not Available No t Available neomycin-polym yxin-dexameth 3.5 mg/mL-10,000 unit/mL-0.1% eye drops INSTILL 1 DROP INTO RIGHT EYE 4 TIMES DAILY FOR 7 DAYS THEN STOP active Not Available Not Available No t Available gabapentin 300 mg capsule active Not Available Not Available N ot Available diclofenac sodium 75 mg tablet,delayed release TAKE 1 TABLET BY MOUTH TWICE DAILY active Not Available Not Available No t Available diclofenac sodium 50 mg tablet,delayed release active Not Available Not Available Not Available gabapentin 100 mg capsule TAKE 1 TO 2 CAPSULES BY MOUTH AT NIGHT FOR SLEEP active Not Available Not Available No t Available hydroxychloroq uine 200 mg tablet TAKE 2 TABLETS BY MOUTH ONCE DAILY active Not Available Not Available No t Available methylpredniso lone 4 mg tablets in a dose pack TAKE BY MOUTH DIRECTED ON INSIDE OF PACKAGE active Not Available Not Available No t Available ondansetron 4 mg disintegrating tablet DISSOLVE 1 TABLET IN MOUTH EVERY 1 TO 2 HOURS NEEDED active Not Available Not Available No t Available cefdinir 300 mg capsule active Not Available Not Available N ot Available amoxicillin 875 mg-potassium clavulanate 125 mg tablet TAKE 1 TABLET BY MOUTH TWICE DAILY FOR 7 DAYS THEN STOP active Not Available Not Available No t Available olmesartan 20 mg tablet TAKE 1 TABLET BY MOUTH ONCE DAILY active Not Available Not Available No t Available olmesartan 40 mg tablet active Not Available Not Available No t Available ProAir HFA 90 mcg/actuation aerosol inhaler active Not Available Not Available Not Available hydrochlorothi azide 12.5 mg tablet TAKE 1 TABLET BY MOUTH ONCE DAILY active Not Available Not Available No t Available Fluarix Quad 1403-3447 (PF) 60 mcg (15 mcg x 4)/0.5 mL IM syringe active Not Available Not Available Not Available Vitals None Recorded Social History None recorded. Functional Status None recorded. Mental Status None recorded. Family History Nothing Reported. Medical History No medical history recorded. Gynecological HistoryNo gynecological history recorded. Obstetrics History GPAL:G 0 P 0 0 0 0 Past Encounters Encounter ID Performer Location Encounter Start Date Encounter Closed Date Diagnosis/Indication Diagnosis SNOMED-CT Code Diagnosis ICD10 Code Diagnosis IMO Codes Diagnosis Note [id number] Tanvir Sagastume MD Main Office [address] [facility] [address] [place] [phone] 07/21/2019 12:50:27 07/21/2019 14:42:05 Neoplasm of uncertain behavior of skin 44191549 D48.5 Health Concerns Section Related Observation LastModified by Organization Detai ls LastModified Time None Recorded Concern Status LastModified by Organization Details LastModified Time None Recorded Advance Directives Directive None Recorded Payers Insurance Date Sequence Insurance Name Policy Number Policy Jolly Covered Member ID Jolly Member ID Guarantor Name 12/24/2020 1 [employer] - ALLIED BENEFITS - OPEN ACCESS [id number] Ju Tariq [id number] Ju Tariq 12/24/2020 2 [facility] [id number] Issa Torres Tariq [id number] [place] Notes Date Note Type Note Provider Name and Address Organization Details Recorded Time 05/05/2019 text/html 1 YR DRY HAND PATCHES. FINGERS. DR SILVA. PREV RITUXAN ORENCIA-IST. TO SIMPONI, 1.5 WEEKW AGO RASH ON ARMS HANDS, [place]-0. PRED LEFLUNOMIDE BACK ON OF TOMORROW. 2.5 TO 7.5 MG. OFF PRED RECENTLY LAST YR. RESTART TOMORROW. PLAQ XYRS RA. Not Available Not Available Not Available 07/21/2019 text/html Here for bx on the abdomen. Black macule. Tanvir Sagastume MD [address] [facility] [address], [place], [address], [facility] 07/21/2019 14:41:31 OBGyn Episode No OBEpisode recorded.
--- OUTSIDE RECORDS SUMMARY | 2025-01-17 15:53 | XMS_ITS | Encounter Summary ---
Author Organization [facility] Health Address [address] [place] [address] Care Team Providers Care Investment Underwriter Name Role Phone Chuckie Blue MD Primary Care Provider [phone] Encounter Details Date Type Department Care Team (Late st Contact Info) Description 05/30/2015 [facility] Outpatient Visit [facility] [address] [place] [address] [place] [address] [address] Social History Tobacco Use Types Packs/Day Years Used Date Smoking Tobacco: Every Day Cigarettes Smokeless Tobacco: Never Alcohol Use Standard Drinks/Week Comments No 0 (1 standard drink = 0.6 oz pur e alcohol) Comments No Sex and Gender Information Value Date Recorded Sex Assigned at Female 04/04/2021 7:56 AM CERTIFIED ENDOSCOPY TECHNICIAN Legal Sex Female 1:29 PM CERTIFIED ENDOSCOPY TECHNICIAN Gender Identity Female 04/04/2021 7:56 AM CERTIFIED ENDOSCOPY TECHNICIAN Sexual Orientation Straight 04/04/2021 7: 56 AM CERTIFIED ENDOSCOPY TECHNICIAN documented as of this encounter Plan of Treatment Not on file documented as of this encounter Visit Diagnoses Not on filedocumented in this encounter Care Teams Investment Underwriter Relationship Specialty [place] [address] [phone] PCP - General Internal Medicine 05/27/15 documented as of this encounter
--- OUTSIDE RECORDS SUMMARY | 2025-01-17 15:53 | XMS_ITS | Clinical Summary ---
Author Organization [facility] Address [address] [place] [address] Care Team Providers Care Fiscal Services Director Name Role Phone Chuckie Blue MD Primary Care Provider [phone] Source Comments [facility],non-owned Affiliates and Associated Physician Practices is amultiple site organization consisting of ambulatory clinics and hospital sitesin [place], [place], [place] and [place]. This disclosure is being madepursuant to the Care Everywhere program and may not contain all information available regarding this patient. Last updated 17.[facility] Allergies Active Allergy Reactions Criticality Noted Date Comments Steve Inhibitors Cough Medium 05/06/2015 Adhesive Sensitivity Urticaria High 06/03/2015 Red and pulled off skin Red and pulled off skin Azathioprine Nausea and/or Vomiting Low 07/16/2017 Codeine Psychiatric Medium 03/29/2017 Hmg-Coa-R Inhibitors Other 10/03/2015 [place] Urticaria Medium 05/30/2015 Itching and hives Itching [...] Comments Diabetes Maternal Grandfather Hypercholesterolemia Maternal Grandfather NM Maternal Grandfather Heart Disease Maternal Grandmother Arthritis [...] Sex Assigned at Female 04/04/2021 7:56 AM [employer] Legal Sex Female 1:29 PM [employer] Gender Identity Female 04/04/2021 7:56 AM [employer]ER Sexual Orientation Straight 04/04/2021 7: 56 AM [employer] INST[employer]ER Last Filed Vital Signs Vital Sign Reading [...] FLEX SIG - COLON CA SCREENING 1974 LIPID TESTING 1974 HIV SCREENING 1989 HEPATITIS C SCREENING 01/28/1992 DTAP/TDAP/TD VACCINES (1 - Tdap) 1993 HEPATITIS B VACCINE (1 of 3 - 19+ 3-dose series) 1993 PNEUMOCOCCAL VACCINE 50+ (1 of 2 - PCV) 1993 ZOSTER VACCINE (1 of 2) 02/02/2024 DEPRESSION SCREENING 03/22/2024 07/09/2023, 04/03/2022, 08/22/2021 MAMMOGRAM 03/26/2024 03/26/2022, 05/2020, 05/26/2014 COVID-19 VACCINE ( season) 2024 03/28/2021, 04/29/2020, 04/09/2020, Additional history exists INFLUENZA VACCINE (#1) 2024 , 01/02/2022, 01/03/2021, Additional history exists HIB VACCINE Aged Out No longer eligi [...] this topic Medical Devices Implanted Type Area Ventilation Equipment Tender Device Identifier Shelf Expiration Date Model / Serial / Lot Port Pwr Mri 9.6fr Implanted:Qty: 1 on 06/03/2015 by Hieu Menjivar MD at [facility] Right: Chest Wall [employer] 11/02/2016 [id number] / / [id number] Insurance QA on Request [facility] Care Teams Fiscal Services Director Relationship Specialty [place] [id number] [place] [address] PCP - General Internal Medicine 05/27/15
--- OUTSIDE RECORDS SUMMARY | 2025-01-17 15:53 | XMS_ITS | Clinical Summary ---
Author Organization [facility] Address [address] [place] [id number] Care Team Providers Care Ethylbenzene Cracking Supervisor Name Role Phone Paulino Souza MD Unavailable [phone] Lam Nicholson MD Primary Care Provi sriram Allergies Active Allergy Reactions Criticality Noted Date Comments Steve Inhibitors Cough Medium 05/06/2015 Adhesive Tape-Silicones Blisters High 06/03/2015 Red and pulled off skin Codeine Unknown,Mental status changes Medium 03/29/2017 Azathioprine Nausea & Vomiting Low 07/16/2017 Kiiryly-Sem-Pdf Reductase Inhibitors Unknown 01/04/2025 [place] Hives Medium 05/30/2015 Itching and hives Medications [...] (six) hours as needed for pain Active vtjxawsitgzl-Gc-hn on-minerals tablet Take by mouth Active golimumab [...] daily 30 tablet 5 08/29/19 25 Active clobetasoL (TEMOVATE) 0.05 % ointment 04/05/19 21 Active albuterol HFA (ProAir HFA) 90 mcg/actuation inhaler 12/19/19 19 Active sulfaSALAzine (AZULFIDINE) 500 mg tablet Take 1 tablet BID for 2wks then increase to 2 tablets BID 120 tablet 3 01/13/20 25 Active cephalexin (KEFLEX) 500 mg capsuleIndications :Pyelonephritis Take 2 capsules (1,000 mg total) by mouth 3 (three) times a day for 7 days 42 capsule 01/18/20 25 Active traMADol (ULTRAM) 50 mg tablet Take 1 tablet (50 mg total) by mouth 01/07/20 18 025 Discontin ued(Patie nt Reported) tamsulosin (FLOMAX) 0.4 mg extended release capsule Take 1 capsule (0.4 mg total) by mouth daily 10/25/19 025 Discontin ued(Patie nt Reported) predniSONE (DELTASONE) 2.5 mg tablet prednisone 2.5 mg tablet Discontin ued(Patie nt Reported) ketorolac (TORADOL) 10 mg tablet Take 1 tablet (10 mg total) by mouth every 6 (six) hours as needed 10/25/19 025 Discontin ued(Patie nt Reported) HYDROcodone-acetam inophen (NORCO) 5-325 mg per tablet Take 1-2 tablets by mouth every 6 (six) hours as needed 10/25/19 025 Discontin ued(Patie nt Reported) gabapentin (NEURONTIN) 300 mg capsule gabapentin 300 mg capsule 025 Discontin ued(Patie nt Reported) buPROPion XL (WELLBUTRIN XL) 150 mg 24 hr tabletIndications: Tobacco abuse Take 1 tablet (150 mg total) by mouth daily 90 tablet 01/09/20 25 025 Discontin ued(Patie nt Reported) Hospital, Clinic, or Other Facility Administered Medication Ordered Dose Route Frequency Start Date End Date Status cefTRIAXone (ROCEPHIN) 250 mg/mL intramuscular injection 1,000 mgIndications:Urinary Tract/Genitourinary Infection 1000 mg IM Once 01/17/2025 01/17/2025 Ended Active Problems Problem Noted Date Diagnosed Date Tobacco abuse 01/08/2025 Assessment & Plan (01/08/2025 9:12 AM CDT): Orders: buPROPion XL (WELLBUTRIN XL) 150 mg 24 hr tablet; Take 1 tablet (150 mg total) by mouth daily Prediabetes 01/08/2025 Assessment & Plan (01/08/2025 9:12 AM CDT): Orders: Hemoglobin A1c; Future Renal calculus, bilateral 01/04/2025 Mixed hyperlipidemia 06/26/2024 Assessment & Plan (01/08/2025 9:12 AM CDT): Assessment & Plan (06/26/2024 10:22 AM CDT): Orders: Lipid panel; Future Morbid obesity with BMI of 45.0-49.9, adult 09/2024 Assessment & Plan (01/08/2025 9:12 AM CDT): Assessment & Plan (06/26/2024 10:22 AM CDT): She would benefit from weight loss and hopefully that can improve once she is off prednisone. Vitamin D deficiency 06/26/2024 Assessment & Plan (01/08/2025 9:12 AM CDT): Vitamin-D level is in normal range. Continue supplementation. Assessment & Plan (06/26/2024 10:22 AM CDT): History of vitamin-D deficiency. Orders: Vitamin D 25 hydroxy; Future Sinus bradycardia 10/30/2022 Assessment & Plan (10/30/2022 1:47 PM CDT): The patient has asymptomatic sinus bradycardia with with a normal echocardiogram. No further cardiac evaluation is indicated at this time. Primary hypertension 10/30/2022 Assessment & Plan (01/08/2025 9:12 AM CDT): Assessment & Plan (06/26/2024 10:22 AM CDT): Orders: Comprehensive metabolic panel; Future Assessment & Plan (10/30/2022 1:47 PM CDT): Controlled. Continue Benicar. Ureteral stone 10/29/2022 Renal colic on left side 10/22/2022 Hydronephrosis concurrent wi th and due to calculi of kidney and ureter 10/22/2022 Rheumatoid arthritis of [facility] sites without rheumatoid factor 10/16/2016 Assessment & Plan (01/08/2025 9:12 AM CDT): Assessment & Plan (06/26/2024 10:22 AM CDT): High risk medication use 10/16/2016 Resolved Problems Problem Noted Date Diagnosed Date Resolved Date Routine adult health maintenance 01/08/2025 01/12/2025 Assessment & Plan (01/08/2025 9:12 AM CDT): Bladder stones 01/04/2025 01/12/2025 Enlarged kidney 01/04/2025 01/12/2025 Hyperglycemia 06/26/2024 09/29/2024 Assessment & Plan (06/26/2024 10:22 AM CDT): She does have a history of hyperglycemia seen on prior labs so I will check A1c. Orders: Hemoglobin A1c; Future Palpitations 06/26/2024 09/29/2024 Assessment & Plan (06/26/2024 10:22 AM CDT): She reports occasional palpitations so I will check magnesium level. Orders: Magnesium; Future Dizziness 05/07/2023 12/31/2023 Assessment & Plan (05/07/2023 12:13 PM CORNER CUTTER): Probably vertigo. Recommend 14 day Bardy D monitor to assess for arrhythmia Rec: meclizine 25 mg tid. Pyelonephritis 10/22/2022 12/31/2023 Gram negative sepsis 10/22/2022 Right thigh pain 10/16/2016 12/31/2023 Leukocytosis 10/16/2016 01/12/2025 Assessment & Plan (06/26/2024 10:22 AM CDT): Mild leukocytosis is likely secondary to chronic prednisone use. No signs of infection at this time. Sprain of anterior talofibul ar ligament of right ankle 09/15/2016 12/31/2023 Contusion of ankle 09/15/2016 BMI 40.0-44.9, adult 09/15/2016 Morbid obesity due to excess calories 09/15/2016 06/26/2024 Current smoker 10/03/2015 01/12/2025 Rheumatoid arthritis 03/07/2013 024 Overview (06/26/2016): Rheumatoid Arthritis Drug therapy finding 03/07/2013 024 Overview (06/27/2016): Therapeutic Drug Monitoring Cardiovascular disease 12/15/201101/12 Overview (06/24/2016): CIRCULATORY DISEASE NEC Encounters Date Type Department Care Team Description 01/17/2025 10:30 AM CDT Office Visit [facility] [place] [address] [place] [address] Paula Howard NP Pyelonephritis (Primary Dx) 01/17/2025 10:21 AM CDT Hospital Encounter [facility] [address] [place] [address] Pyelonephritis 01/12/2025 11:00 AM CDT Office Visit [facility] Medicine Rheumatology [address] [facility] Building [address] [place] [address] Laurence Carranza NP Inflammatory arthritis (Primary Dx); High risk medication use 01/08/2025 8:00 AM CDT Office Visit [facility] Primary Care at [address] [place] [phone] Lam Nicholson MD Routine adult health maintenance (Primary Dx); Primary hypertension; Mixed hyperlipidemia; Morbid obesity with BMI of 45.0-49.9, adult (HCC); Rheumatoid arthritis of multiple sites without rheumatoid factor (HCC); Tobacco abuse; Immunization due; Encounter for screening mammogram for malignant neoplasm of breast; Vitamin D deficiency; Prediabetes 12/29/2024 9:20 AM CDT Lab [address] [address] Mixed hyperlipidemia; Primary hypertension; Hyperglycemia; Vitamin D deficiency; Palpitations 12/08/2024 2:33 PM CDT - 12/08/2024 11:59 PM CDT Hospital Encounter [address] [address] Rheumatoid arthritis 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) Discharge Disposition: Discharge to home or self care 12/08/2024 2:33 PM CDT - 12/08/2024 11:59 PM CDT Hospital Encounter [address] [address] Rheumatoid arthritis 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) Discharge Disposition: Discharge to home or self care 11/24/2024 9:30 AM CDT Infusion [facility] [address] [place] [address] [address] [place] [address] Rheumatoid arthritis of multiple sites without rheumatoid factor (HCC) (Primary Dx) 11/10/2024 Telephone [facility] Gastroenterology at [address] [place] [phone] Krissy Johnson GI Cancellation List from Last 3 Months Immunizations Immunization Administration Dates Next Due Influenza, Quadrivalent, Spl it, Intramuscular 12/26/2019 Influenza, Quadrivalent, Spl it, Preservative Free, Intramuscular 01/08/2023,01/02/2022,01/03/2021,12/30,12/21/2018,04/26/2018 Influenza, Trivalent, Adjuva nted, Intramuscular 01/06/2024 Influenza, Trivalent, IM (MDV) 01/10/2016 Influenza, Trivalent, Preser vative Free, Intramuscular 01/08/2025,01/05/2011,12/24/2008 Influenza, Trivalent, Recomb inant, Egg Free, Preservative Free, Antibiotic Free, IM (FLUBLOK) 01/06/2024 Influenza, Unspecified 01/01/2023 Moderna SARS-CoV-2 Monovalen t Vaccination (12+ YRS) 05/06/2020,04/29/2020,04/09/2020,03/26 Pneumococcal Polysaccharide PPV23 01/05/2011 Surgical History Surgery Date Site/Laterality Comments TONSILLECTOMY [...] - 07/19/2017 Left HYSTERECTOMY 03/22/2001 - 03/21/2002 CATARACT EXTRACTION, BILATERAL 12/21/2024 01/04/2025 Medical History Medical History Date Comments Hypertension Hypertension Hyperlipidemia Hyperlipidemia Gastroesophageal reflux disease GERD Hx Other Medical rheumatoid arth ritis; Comments: VENANCIO 10/10/2013 - Hypertension Hypertension Hx Other Medical hyperlipidemia Hx Other Medical partial hystere ctomy Hx Other Medical ganglion cyst r emoval Hx Other Medical herniated lumba r disc PONV (postoperative nausea a nd vomiting) Rheumatoid arthritis (HCC) Rheum atoid arthritis Smoking Current smoker Cataract March Sleep apnea Kidney stone 2022 Autoimmune disease Family History Medical History Relation Name Comments COPD Father Chuckie Wilson Cancer Father Chuckie Bolanoskermit Clotting disorder Father Chuckie Bolanosestelitaomar Heart attack Father Chuckie Bolanoskermit Heart disease Father Chuckie Bolanoskermit Diabetes Maternal Grandfather Allen Diabete s mellitus; Early Maternal Grandfather Allen Heart attack Maternal Grandfather Allen Myocard ial infarction; Arthritis Mother Roula Hypertension Mother Roula Hypertension; Hypertension Other 1 Family history of Hypertension; Other Other 2 Family history of RA - mother; Lung cancer Paternal Grandmother Cancer, lung; Throat cancer Paternal Grandmother Cancer , throat; Diabetes Sister Marta Hypertension Sister Marta Rashes / Skin problems Son Jim Tariq Breast cancer Neg Hx Endometrial cancer Neg Hx Ovarian cancer Neg Hx Thyroid cancer Neg Hx Relation Name Status Comments Father Chuckie Wilson Alive Maternal Grandfather Allen Alive Mother Roula Alive Other 1 Other 2 Paternal Grandmother Sister Marta Alive Son Jim Tariq Alive Social History Tobacco Use Types Packs/Day Years [...] on file Legal Sex Female 7:05 PM CORNER CUTTER Gender Identity Female 04/03/2020 10:14 AM CORNER CUTTER Sexual Orientation Straight 11/16/2023 2: 11 PM [...] Mass Index 47.12 01/17/2025 10:04 AM CDT Plan of Treatment Health Maintenance Due Date Last Done Comments DTaP/Tdap/Td Vaccine (1 - Tdap) 1985 Zoster Vaccine (1 of 2) 02/02/2024 Covid-19 Vaccine (6 - season) 2024 03/28/2021, 05/06/2020, 04/29/2020, Additional history exists Breast Cancer Screening-Mammogram 01/30/2025 01/31/2024, 03/26/2022, 01/22/2021, Additional history exists Colon Cancer Screening-Colonoscopy 02/09/2025 Postponed from 1974 (Provider's clinical decision) Pneumococcal vaccine <65 (2 of 2 - PCV) 12/24/2025 01/05/2011 Postponed from 01/06/2012 (Patient declined, but will receive in the future) Depression Screening 01/08/2026 01/08/2025, 12/30/19 Regular Well Visit/Exam 18-64 01/08/2026 01/08/2025, 01/08/2025 Hepatitis C Screening Completed 02/05/2023 , 03/19/2022, 01/17/2020, Additional history exists Influenza Vaccine Completed 01/08/2025, , 01/06/2024, Additional history exists Hepatitis B Screening Discontinued Medical Devices Implanted Type Area Gluer Machine Setup Operator Device Identifier Shelf Expiration Date Model / Serial / Lot [employer] Jillian Contour Vl 6fr 22-30cm Taper Tip Bladder Albin Low Profile Stiff Latex Free [id number] - [id number] Implanted:Qty: 1 on 10/22/2022 by Rosanne Loza MD at [facility] Stent Left: Ureter [employer] Jillian [id number] 08/23/2026 [id number] / / [id number] Set Implant [employer] [place] Drill Guide Punch Tap Achilles Pack - [id number] Implanted:Qty: 1 on 07/16/2017 by Gracia Lang DPM at [facility] Left: Heel [employer] 10/19/2018 [id number] / / [id number] Procedures Procedure Name Priority Date/Time Associated Diagnosis Comments POCT URINALYSIS DIPSTICK Routine 01/17/2025 10:20 AM CDT Pyelonephritis EGFR Routine 12/29/2024 9:35 AM CDT Primary hypertension MAGNESIUM Routine 12/29/2024 9:35 AM CDT Palpitations VITAMIN D 25 HYDROXY Routine 12/29/2024 9:35 AM CDT Vitamin D deficiency HEMOGLOBIN A1C Routine 12/29/2024 9:35 AM CDT Hyperglycemia COMPREHENSIVE METABOLIC PANEL Routine 12/29/2024 9:35 AM CDT Primary hypertension LIPID PANEL Routine 12/29/2024 9:35 AM CDT Mixed hyperlipidemia MRI HAND LEFT W WO CONTRAST Schedule Routine, Read Routine (OP Routine) 12/08/2024 4:42 PM CDT Rheumatoid arthritis 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) MRI HAND RIGHT W WO CONTRAST Schedule Routine, Read Routine (OP Routine) 12/08/2024 4:36 PM CDT Rheumatoid arthritis 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) SCREENING MAMMOGRAM BILATERAL W TURNER Schedule Routine, Read Routine (OP Routine) 01/31/2024 9:33 AM CORNER CUTTER Screening mammogram, encounter for HEPATITIS C RNA, QUANTITATIVE, PCR Routine 02/05/2023 10:13 AM CORNER CUTTER from Last 3 Months or Most Recently Relevant to Health Maintenance Results * (ABNORMAL) POCT urinalysis dipstick (01/17/2025 10:20 AM CDT) Color, Urine, POC [place] Clarity, ur, POC Cloudy(A) Clear Glucose, ur, POC Negative Negative Bilirubin, ur, POC Negative Negative Ketones, ur, POC Negative Negative Specific [place], POC 1.020 1.003 - 1.030 Blood, ur, POC Large(A) Negative pH, ur, POC 7.0 5.0 - 8.0 Protein, ur, POC 100.(A) Negative Urobilinogen, urine, POC 2.0(A) 0.2 - 1.0 mg/dL Nitrite, ur, POC Negative Negative Leukocytes, ur, POC Trace(A) Negative Lot Number [id number] Urine 01/17/2025 10:2 0 AM CDT Paula Howard NP POINT OF CARE TEST ORDERABLES Final Result * eGFR (12/29/2024 9:35 AM CDT) eGFR >90 >=60 mL/min/1. 73 [...] interpretive data was last reviewed 2021. Blood 12/29/2024 9:35 AM CDT 12/29/2024 10:14 AM CDT Lam Nicholson MD LAB BLOOD ORDERABLE S Final Result [facility] [place] [address] * Vitamin D 25 hydroxy (12/29/2024 9:35 AM CDT) Vitamin D 25-OH 35 30 - 80 ng/mL [facility] Blood 12/29/2024 9:35 AM CDT 12/29/2024 10:14 AM CDT Lam Nicholson MD LAB BLOOD ORDERABLE S Final Result Performing Organization Address City/[facility] Co de Phone Number [facility] [place] [address] * Magnesium (12/29/2024 9:35 AM CDT) Magnesium 1.9 1.4 - 2.5 mg/dL [facility] Blood 12/29/2024 9:35 AM CDT 12/29/2024 10:14 AM CDT Lam Nicholson MD LAB BLOOD ORDERABLE S Final Result Performing Organization Address City/[facility]/ZIP Co de Phone Number [facility] [place] [address] * (ABNORMAL) Hemoglobin A1c (12/29/2024 9:35 AM CDT) Hgb A1C 5.8(H) 4.0 - 5.6 % [facility] Estimated Average Glucose 120 mg/dL [facility] Comment: The ADA recommends reporting an estimated Average Glucose (eAG) with all Hemoglobin A1c results using the equation derived from a study of 507 normal and diabetic adults. Minority populations were underrepresented and children were not included. (Diabetes Care 31:7116-3735, 2008). The eAG is not equivalent to a fasting glucose. Testing performed by: [facility], [facility], [place], [address] Blood 12/29/2024 9:35 AM CDT 12/29/2024 10:14 AM CDT us Lam Nicholson MD LAB BLOOD ORDERABLE S Final Result [facility] Department [place] [address] * (ABNORMAL) Lipid panel (12/29/2024 9:35 AM CDT) Cholesterol 177 30 - 199 mg/dL [facility] Comment: Interpretive Data Ages < or = 19 years Acceptable: <170 mg/dL Borderline high: 170-199 mg/dL High: >or= 200 mg/dL Ages > or = 20 years Desirable: <200 mg/dL Borderline high: 200-239 mg/dL High: >or= 240 mg/dL Literature References: 1. Expert Panel on Integrated Guidelines for Cardiovascular Health and Risk Reduction in Children and Adolescents. Pediatrics 2011;128:S213 2. NCEP Expert Panel. Circulation 2004;110:227 Current Interpretive Data was last revised on 2017. Triglycerides 160(H) <=149 mg/dL [facility] ([facility]) Comment: Interpretive Data Ages < or = 9 years Acceptable: <75 mg/dL Borderline high: 75-99 mg/dL High: >or= 100 mg/dL Ages 10 to 20 years Acceptable: <90 mg/dL Borderline high: 90-129 mg/dL High: >or= 130 mg/dL Ages > or = 20 years Desirable: <150 mg/dL Borderline high: 150-199 mg/dL High: 200-499 mg/dL Very high: >or= 499 mg/dL Literature References: 1. Expert Panel on Integrated Guidelines for Cardiovascular Health and Risk Reduction in Children and Adolescents. Pediatrics 2011;128:S213 2. NCEP Expert Panel. Circulation 2004;110:227 Current Interpretive Data was last revised on 2017. HDL 50 >=40 mg/dL [facility] ([place]) Comment: Interpretive Data Ages < or = 19 years Acceptable: >45 mg/dL Borderline low: 40-45 mg/dL Low: <40 mg/dL Ages > or = 20 years Desirable: >or= 60 mg/dL Low: <40 mg/dL Literature References: 1. Expert Panel on Integrated Guidelines for Cardiovascular Health and Risk Reduction in Children and Adolescents. Pediatrics 2011;128:S213 2. NCEP Expert Panel. Circulation 2004;110:227 Current Interpretive Data was last revised on 2017. LDL, calculated 99 <=129 mg/dL [facility] Comment: Interpretive Data Ages < or = 19 years Acceptable: <110 mg/dL Borderline high: 110-129 mg/dL High: >or= 130 mg/dL Ages > or = 20 years Optimal: <100 mg/dL Near optimal: 100-129 mg/dL Borderline high: 130-159 mg/dL High: >160 mg/dL Calculated using the Jorge Luis LDL-C estimating equation. This equation was implemented on 2023. Prior to this date LDL-C was estimated using the Friedewald equation. Literature References: 1. Expert Panel on Integrated Guidelines for Cardiovascular Health and Risk Reduction in Children and Adolescents. Pediatrics 2011;128:S213 2. NCEP Expert Panel. Circulation 2004;110:227 3. Jorge Luis Hutchinson et al. BEBE Cardiol. 2020 July 20;5(5):540-548. doi: 10.1001/jamacardio.2020.0013 Current Interpretive Data was last revised on 2023. Testing performed by: [facility], [facility], [place], [address] Non-HDL Cholesterol 127 mg/dL [facility] Comment: Interpretive Data Ages < or = 19 years Acceptable: <120 mg/dL Borderline high: 120-144 mg/dL High: >145 mg/dL Ages > or = 20 years When triglycerides are >200 mg/dL, Non-HDL cholesterol is a secondary target of therapy with treatment goals that are 30 mg/dL greater than the LDL cholesterol target. Literature References: 1. Expert Panel on Integrated Guidelines for Cardiovascular Health and Risk Reduction in Children and Adolescents. Pediatrics 2011;128:S213 2. NCEP Expert Panel. Circulation 2004;110:227 Current Interpretive Data was last revised on 2017. Testing performed by: [facility], [facility], [place], [address] Chol/HDL ratio 4 [facility] ([facility]) Comment:Testing performed by : [facility], [facility], [place], [address] Blood 12/29/2024 9:35 AM CDT 12/29/2024 10:14 AM CDT us Lam Nicholson MD LAB BLOOD ORDERABLE S Final Result [facility] ([place] Department [place] [address] * (ABNORMAL) Comprehensive metabolic panel (12/29/2024 9:35 AM CDT) Sodium 137 135 - 145 mmol/L [facility] ([place]) Potassium, pl 4.4 3.3 - 4.9 mmol/L [facility] ([place]) Chloride 103 97 - 110 mmol/L [facility] ([place]) CO2 27 22 - 32 mmol/L [facility] ([place]) Anion gap 7 2 - 15 mmol/L [facility] ([place]) BUN 13 6 - 25 mg/dL [facility] ([place]) Creatinine 0.57(L) 0.60 - 1.10 mg/dL [facility] ([place]) Glucose 91 70 - 199 mg/dL [facility] ([place]) Comment: Interpretive Data Fasting glucose >/= 126 [...] Calcium 9.3 8.5 - 10.3 mg/dL [facility] ([place]) Bilirubin, total 0.2 0.1 - 1.2 mg/dL [facility] ([place]) Protein, pl 6.6 6.5 - 8.5 g/dL [facility] ([place]) Albumin 4.2 3.5 - 5.0 g/dL [facility] ([place]) Alk phos 62 40 - 130 Units/L [facility] ([place]) ALT 27 7 - 45 Units/L [facility] ([place] AST 27 10 - 45 Units/L [facility] ([place]) Blood 12/29/2024 9:35 AM CDT 12/29/2024 10:14 AM CDT us Lam Nicholson MD LAB BLOOD ORDERABLE S Final Result [facility] ([place] Department [place] [address] * MRI Hand Left W WO Contrast (12/08/2024 4:42 PM CDT) Anatomical Region Laterality Modality Upper Extremities Left Magnetic Reson ance 12/09/2024 1:53 PM CDT Narrative 12/09/2024 2:02 PM CDT EXAM DESCRIPTION: 1. MRI HAND RIGHT W WO CONTRAST; 2. MRI HAND LEFT W WO CONTRAST REASON FOR STUDY: Hand pain, chronic, inflammatory arthritis suspected, xray done Rheumatoid arthritis involving multiple sites; she was diagnosed several years ago; doctor wants to confirm for best plan of care TECHNIQUE: Multiplanar, multisequence MRI of the left hand and multiplanar multisequence MRI of the right hand was performed before and after administration of 20 mL Dotarem gadolinium contrast intravenously. COMPARISON: Radiographs 12/31/2023 FINDINGS: Right hand: Scaphoid erosion is present. Osteitis is present involving the capitate. No metacarpal head are distal erosions are identified. Mild wrist synovitis is present. Mild long finger proximal interphalangeal joint synovitis. No acute fracture. Alignment is normal. The wrist joint spaces appear normal. Limited evaluation of the wrist intrinsic and extrinsic ligaments appear intact. The triangular fibrocartilage complex appears intact. The visualized extensor tendons appear intact. Minimal extensor carpi radialis brevis tenosynovitis. The carpal tunnel appears within normal limits. The flexor tendons are normal in course and morphology. No evidence of bowstringing or flexor tenosynovitis. Left hand: Scaphoid erosion is present. 3rd metacarpal head erosion is present. Mild wrist synovitis. Mild 3rd metacarpophalangeal joint synovitis. No significant interphalangeal joint synovitis. No acute fracture. Alignment is normal. The wrist joint spaces appear normal. Limited evaluation of the wrist intrinsic, and extrinsic wrist ligaments appear intact. The triangular fibrocartilage complex appears intact. The visualized extensor tendons appear intact. Mild 2nd extensor compartment tenosynovitis. The flexor tendons appear intact. No evidence of flexor tenosynovitis. The carpal tunnel appears normal. No evidence of bowstringing. IMPRESSION: 1. Bilateral scaphoid and left 3rd metacarpal head erosions. Mild bilateral wrist, right long finger proximal interphalangeal joint, and left 3rd metacarpophalangeal joint synovitis. These findings can be associated with inflammatory arthritis. 2. Mild bilateral 2nd extensor compartment tenosynovitis. THIS IS AN ELECTRONICALLY VERIFIED FINAL REPORT 12/09/2024 2:02 PM - Electronically signed by Willard Messer M.D. MF: [id number] Report ID: [id number] Reading Location: [id number] Procedure Note Willard Messer MD - 12/09/2024 EXAM DESCRIPTION: 1. MRI HAND RIGHT W WO CONTRAST; 2. MRI HAND LEFT W WO CONTRAST REASON FOR STUDY: Hand pain, chronic, inflammatory arthritis suspected,xray done Rheumatoid arthritis involving multiple sites; she was diagnosed severalyears ago; doctor wants to confirm for best plan of care TECHNIQUE: Multiplanar, multisequence MRI of the left hand andmultiplanar multisequence MRI of the right hand was performed before and after administration of 20 mL Dotarem gadolinium contrast intravenously. COMPARISON: Radiographs 12/31/2023 FINDINGS: Right hand: Scaphoid erosion is present. Osteitis is present involving the capitate.No metacarpal head are distal erosions are identified. Mild wrist synovitisis present. Mild long finger proximal interphalangeal joint synovitis. No acute fracture. Alignment is normal. The wrist joint spaces appear normal. Limited evaluation of the wrist intrinsic and extrinsic ligaments appear intact. The triangular fibrocartilage complex appears intact. The visualized extensor tendons appear intact. Minimal extensor carpi radialis brevis tenosynovitis. The carpal tunnel appears within normal limits. The flexor tendons are normal in course and morphology. Noevidence of bowstringing or flexor tenosynovitis. Left hand: Scaphoid erosion is present. 3rd metacarpal head erosion is present.Mild wrist synovitis. Mild 3rd metacarpophalangeal joint synovitis. No significant interphalangeal joint synovitis. No acute fracture. Alignment is normal. The wrist joint spaces appear normal. Limited evaluation of the wrist intrinsic, and extrinsic wrist ligaments appear intact. The triangular fibrocartilage complex appears intact. The visualized extensor tendons appear intact. Mild 2nd extensorcompartment tenosynovitis. The flexor tendons appear intact. No evidence of flexor tenosynovitis. The carpal tunnel appears normal. No evidence of bowstringing. IMPRESSION: 1. Bilateral scaphoid and left 3rd metacarpal head erosions. Mildbilateral wrist, right long finger proximal interphalangeal joint, and left 3rd metacarpophalangeal joint synovitis. These findings can be associatedwith inflammatory arthritis. 2. Mild bilateral 2nd extensor compartment tenosynovitis. THIS IS AN ELECTRONICALLY VERIFIED FINAL REPORT 12/09/2024 2:02 PM - Electronically signed by Willard Messer M.D. MF: LAINA Report ID: [id number] Reading Location: [id number] Laurence Carranza NP IMG MRI PROCEDURES Alisson l Result * MRI Hand Right W WO Contrast (12/08/2024 4:36 PM CDT) Anatomical Region Laterality Modality Upper Extremities Right Magnetic Reson ance 12/09/2024 1:53 PM CDT Narrative 12/09/2024 2:02 PM CDT EXAM DESCRIPTION: 1. MRI HAND RIGHT W WO CONTRAST; 2. MRI HAND LEFT W WO CONTRAST REASON FOR STUDY: Hand pain, chronic, inflammatory arthritis suspected, xray done Rheumatoid arthritis involving multiple sites; she was diagnosed several years ago; doctor wants to confirm for best plan of care TECHNIQUE: Multiplanar, multisequence MRI of the left hand and multiplanar multisequence MRI of the right hand was performed before and after administration of 20 mL Dotarem gadolinium contrast intravenously. COMPARISON: Radiographs 12/31/2023 FINDINGS: Right hand: Scaphoid erosion is present. Osteitis is present involving the capitate. No metacarpal head are distal erosions are identified. Mild wrist synovitis is present. Mild long finger proximal interphalangeal joint synovitis. No acute fracture. Alignment is normal. The wrist joint spaces appear normal. Limited evaluation of the wrist intrinsic and extrinsic ligaments appear intact. The triangular fibrocartilage complex appears intact. The visualized extensor tendons appear intact. Minimal extensor carpi radialis brevis tenosynovitis. The carpal tunnel appears within normal limits. The flexor tendons are normal in course and morphology. No evidence of bowstringing or flexor tenosynovitis. Left hand: Scaphoid erosion is present. 3rd metacarpal head erosion is present. Mild wrist synovitis. Mild 3rd metacarpophalangeal joint synovitis. No significant interphalangeal joint synovitis. No acute fracture. Alignment is normal. The wrist joint spaces appear normal. Limited evaluation of the wrist intrinsic, and extrinsic wrist ligaments appear intact. The triangular fibrocartilage complex appears intact. The visualized extensor tendons appear intact. Mild 2nd extensor compartment tenosynovitis. The flexor tendons appear intact. No evidence of flexor tenosynovitis. The carpal tunnel appears normal. No evidence of bowstringing. IMPRESSION: 1. Bilateral scaphoid and left 3rd metacarpal head erosions. Mild bilateral wrist, right long finger proximal interphalangeal joint, and left 3rd metacarpophalangeal joint synovitis. These findings can be associated with inflammatory arthritis. 2. Mild bilateral 2nd extensor compartment tenosynovitis. THIS IS AN ELECTRONICALLY VERIFIED FINAL REPORT 12/09/2024 2:02 PM - Electronically signed by Willard Messer M.D. MF: LAINA Report ID: [id number] Reading Location: [id number] Procedure Note Willard Messer MD - 12/09/2024 EXAM DESCRIPTION: 1. MRI HAND RIGHT W WO CONTRAST; 2. MRI HAND LEFT W WO CONTRAST REASON FOR STUDY: Hand pain, chronic, inflammatory arthritis suspected,xray done Rheumatoid arthritis involving multiple sites; she was diagnosed severalyears ago; doctor wants to confirm for best plan of care TECHNIQUE: Multiplanar, multisequence MRI of the left hand andmultiplanar multisequence MRI of the right hand was performed before and after administration of 20 mL Dotarem gadolinium contrast intravenously. COMPARISON: Radiographs 12/31/2023 FINDINGS: Right hand: Scaphoid erosion is present. Osteitis is present involving the capitate.No metacarpal head are distal erosions are identified. Mild wrist synovitisis present. Mild long finger proximal interphalangeal joint synovitis. No acute fracture. Alignment is normal. The wrist joint spaces appear normal. Limited evaluation of the wrist intrinsic and extrinsic ligaments appear intact. The triangular fibrocartilage complex appears intact. The visualized extensor tendons appear intact. Minimal extensor carpi radialis brevis tenosynovitis. The carpal tunnel appears within normal limits. The flexor tendons are normal in course and morphology. Noevidence of bowstringing or flexor tenosynovitis. Left hand: Scaphoid erosion is present. 3rd metacarpal head erosion is present.Mild wrist synovitis. Mild 3rd metacarpophalangeal joint synovitis. No significant interphalangeal joint synovitis. No acute fracture. Alignment is normal. The wrist joint spaces appear normal. Limited evaluation of the wrist intrinsic, and extrinsic wrist ligaments appear intact. The triangular fibrocartilage complex appears intact. The visualized extensor tendons appear intact. Mild 2nd extensorcompartment tenosynovitis. The flexor tendons appear intact. No evidence of flexor tenosynovitis. The carpal tunnel appears normal. No evidence of bowstringing. IMPRESSION: 1. Bilateral scaphoid and left 3rd metacarpal head erosions. Mildbilateral wrist, right long finger proximal interphalangeal joint, and left 3rd metacarpophalangeal joint synovitis. These findings can be associatedwith inflammatory arthritis. 2. Mild bilateral 2nd extensor compartment tenosynovitis. THIS IS AN ELECTRONICALLY VERIFIED FINAL REPORT 12/09/2024 2:02 PM - Electronically signed by Willard eMsser M.D. MF: LAINA Report ID: [id number] Reading Location: [id number] Laurence JasperMarilia Carranza MULTI LINE CLAIMS ADJUSTER IMG MRI PROCEDURES Alisson kiki Result * Screening Mammogram Bilateral W Turner (01/31/2024 9:33 AM CORNER CUTTER) Anatomical Region Laterality Modality Breast Bilateral Mammography 01/31/2024 11:1 0 AM CORNER CUTTER Impressions 01/31/2024 11:10 AM CORNER CUTTER No evidence of malignancy in either breast. Management of any palpable abnormality should be based on clinical grounds. FINAL ASSESSMENT: BI-RADS Category 1: Negative. RECOMMENDATION: Recommend return for annual screening mammogram in 12 months. Electronically signed by: Nicky Ramirez M.D. Narrative 01/31/2024 11:10 AM CORNER CUTTER EXAMINATION: BILATERAL SCREENING MAMMOGRAM COMPARISON: Multiple prior exams dating back to 06/24/2010 TECHNIQUE: Full-field 2D and digital breast tomosynthesis (DBT) images were obtained. CAD was utilized. BREAST PARENCHYMAL COMPOSITION: There are scattered areas of fibroglandular density. FINDINGS: There is no suspicious mass, calcification, or distortion in either breast. Self Screening Mammogram IMG MAMMO PROCEDURES Fi nal Result * Hepatitis C (HCV) RNA PCR, quantitative Blood (02/05/2023 10:13 AM CORNER CUTTER) HCV RNA result Not Detected [facility] ([place]) Comment: The quantifiable range of this assay is 15 IU/mL to 100,000,000 IU/mL (1.18 log IU/mL to 8.00 log IU/mL). Testing was performed by the RIGO 6800 HCV Test ([employer]ae [employer] Testing performed at [facility] Current Interpretive Data was last revised on 2020 Testing performed by: [facility], 1 [facility] [place] [address] Blood 02/05/2023 10:1 3 AM CORNER CUTTER 02/05/2023 5:52 PM CORNER CUTTER us Chema Smith MD LAB MICROBIOLOGY - GENERAL ORD ERABLES Final Result [facility] 1 [facility] Department [place] [address] from Last 3 Months or Most Recently Relevant to Health Maintenance Insurance [place] [id number] [place] [id number] Advance Directives For more information, please contact: [phone] * Full Code (Latest Code Status on File) Date Activated Date Inactivated Comments 12/30/2018 1:41 AM 12/30/2018 10:46 PM * Full Code Date Activated Date Inactivated Comments 07/16/2017 3:40 PM 07/16/2017 6:30 PM Care Teams Ethylbenzene Cracking Supervisor Relationship Specialty Start Date End Date Lam Nicholson MD [address] [facility] [address] [place] [address] PCP - General Family Practice 06/26/24 Paulino Souza MD Consulting Physician Cardiovascular Disease 10/24/22
[2025-01-17 16:04] LABS: Alanine Aminotransferase 38 U/L (6-35); Albumin Level 4.1 g/dL (3.5-5.1); Alkaline Phosphatase 87 U/L (38-126); Anion Gap 8 mmol/L (4-12); Aspartate Amino Transferase 40 U/L (14-36); Bilirubin,Total 0.6 mg/dL (0.2-1.3); Blood Urea Nitrogen 16 mg/dL (7-17); Calcium 9.3 mg/dL (8.4-10.2); Carbon Dioxide 23 mmol/L (22-30); Chloride 107 mmol/L (98-107); Estimated CRCL calculation 97 ml/min; Estimated Glomerular Filt Rate > 60; Glucose 120 mg/dL (65-110); Potassium 3.7 mmol/L (3.4-5.0); Sodium 138 mmol/L (137-145); Total Protein 7.6 g/dL (6.3-8.2)
[2025-01-17 16:39] VITALS: BP 113/68; PULSE 76; RESP 14; TEMP 36.7; O2SAT 98
[2025-01-17 16:41] LABS: Lymphocytes Absolute Manual 3.85 K/mm3 (1.1-4.5); Lymphocytes Percent Manual 19.0 % (18-44); Monocytes Absolute Manual 1.21 K/mm3 (0.1-0.90); Monocytes Percent Manual 6 % (3-9); Neutrophils Percent Manual 75 % (46-73); Total Cells Counted 100
[2025-01-17 16:42] LABS: Schistocytes None Seen
[2025-01-17 16:47] LABS: Band Neutrophils Percent 0 % (0-6); Neutrophils Absolute Manual 15.22 K/mm3 (1.3-6.7)
[2025-01-17 17:04] LABS: Add Urine Microscopic? YES; Appearance Urine Cloudy (Clear); Glucose Urine UA Negative (Negative); Leukocyte Esterase Ur 2+ LEU/UL (Negative); Nitrate Urine Negative (Negative); Non Pathogenic Casts 0-2; Specific Grav Ur 1.017 (1.001-1.035)
--- OUTSIDE RECORDS SUMMARY | 2025-01-17 18:12 | XMS_ITS | Encounter Summary ---
Author Organization [facility] Health Address [address] [place] [address] Care Team Providers Care Ham Doctor Name Role Phone Chuckie Blue MD Primary Care Provider Encounter Details Date Type Department Care Team (Late st Contact Info) Description 05/30/2015 [facility] Outpatient Visit [facility] [address] [place] [address] [place] [address] [address] Social History Tobacco Use Types Packs/Day Years Used Date Smoking Tobacco: Every Day Cigarettes Smokeless Tobacco: Never Alcohol Use Standard Drinks/Week Comments No 0 (1 standard drink = 0.6 oz pur e alcohol) Comments No Sex and Gender Information Value Date Recorded Sex Assigned at Female 04/04/2021 7:56 AM HAMMER ADJUSTER Legal Sex Female 1:29 PM HAMMER ADJUSTER Gender Identity Female 04/04/2021 7:56 AM HAMMER ADJUSTER Sexual Orientation Straight 04/04/2021 7: 56 AM HAMMER ADJUSTER documented as of this encounter Plan of Treatment Not on file documented as of this encounter Visit Diagnoses Not on filedocumented in this encounter Care Teams Ham Doctor Relationship Specialty [place] [address] [id number] PCP - General Internal Medicine 05/27/15 documented as of this encounter
--- OUTSIDE RECORDS SUMMARY | 2025-01-17 18:12 | XMS_ITS | Clinical Summary ---
Author Organization [facility] Address [address] [facility] [place] [address] Care Team Providers Care Software Test Automation Engineer Name Role Phone Chuckie Blue MD Primary Care Provider [phone] Source Comments [facility],non-owned Affiliates and Associated Physician Practices is amultiple site organization consisting of ambulatory clinics and hospital sitesin [place], [place], [place] and [place]. This disclosure is being madepursuant to the Care Everywhere program and may not contain all information available regarding this patient. Last updated 17.[facility] Allergies Active Allergy Reactions Criticality Noted Date Comments Steve Inhibitors Cough Medium 05/06/2015 Adhesive Sensitivity Urticaria High 06/03/2015 Red and pulled off skin Red and pulled off skin Azathioprine Nausea and/or Vomiting Low 07/16/2017 Codeine Psychiatric Medium 03/29/2017 Hmg-Coa-R Inhibitors Other 10/03/2015 [place] Urticaria Medium 05/30/2015 Itching and hives Itching [...] Comments Diabetes Maternal Grandfather Hypercholesterolemia Maternal Grandfather DC Maternal Grandfather Heart Disease Maternal Grandmother Arthritis [...] Sex Assigned at Female 04/04/2021 7:56 AM INTERMEDIATE TEACHER Legal Sex Female 1:29 PM INTERMEDIATE TEACHER Gender Identity Female 04/04/2021 7:56 AM INTERMEDIATE TEACHER Sexual Orientation Straight 04/04/2021 7: 56 AM INTERMEDIATE TEACHER Last Filed Vital Signs Vital Sign Reading [...] this topic Medical Devices Implanted Type Area Senior Php Developer Device Identifier Shelf Expiration Date Model / Serial / Lot Port Pwr Mri 9.6fr Implanted:Qty: 1 on 06/03/2015 by Hieu Menjivar MD at [facility] Right: Chest Wall [employer] 11/02/2016 [id number] / / [id number] Insurance [employer] [facility] HEALTHLINK HEALTHLINK Care Teams Software Test Automation Engineer Relationship Specialty [place] [address] [address] [place] [address] PCP - General Internal Medicine 05/27/15
--- OUTSIDE RECORDS SUMMARY | 2025-01-17 18:12 | XMS_ITS | Clinical Summary ---
Author Organization [facility] Address [address] [place] [address] Care Team Providers Care Magneto Specialist Name Role Phone Paulino Souza MD Unavailable [phone] Lam Nicholson MD Primary Care Provi sriram Allergies Active Allergy Reactions Criticality Noted Date Comments Steve Inhibitors Cough Medium 05/06/2015 Adhesive Tape-Silicones Blisters High 06/03/2015 Red and pulled off skin Codeine Unknown,Mental status changes Medium 03/29/2017 Azathioprine Nausea & Vomiting Low 07/16/2017 Fglwjqi-Opw-Jaw Reductase Inhibitors Unknown 01/04/2025 [place] Hives Medium 05/30/2015 Itching and hives Medications [...] (six) hours as needed for pain Active ljheecovdzio-Xr-hi on-minerals tablet Take by mouth Active golimumab [...] kidney and ureter 10/22/2022 Rheumatoid arthritis of [facility] sites without rheumatoid factor 10/16/2016 Assessment [...] 12/31/2023 Assessment & Plan (05/07/2023 12:13 PM SUBSTITUTE BUS DRIVER): Probably vertigo. Recommend 14 day Bardy D [...] Description 01/17/2025 10:30 AM CDT Office Visit [facility] [place] [address] [place] [address] Paula Howard NP Pyelonephritis (Primary Dx) 01/17/2025 10:21 AM CDT Hospital Encounter [facility] [address] [place] [address] Pyelonephritis 01/12/2025 11:00 AM CDT Office Visit [facility] Medicine Rheumatology [address] [facility] Medical Office Building [address] [place] [address] Laurence Carranza NP Inflammatory arthritis (Primary Dx); High risk medication use 01/08/2025 8:00 AM CDT Office Visit [facility] Primary Care at [address] [place] [phone] Lam Nicholson MD Routine adult health maintenance (Primary Dx); Primary hypertension; Mixed hyperlipidemia; Morbid obesity with BMI of 45.0-49.9, adult (HCC); Rheumatoid arthritis of multiple sites without rheumatoid factor (HCC); Tobacco abuse; Immunization due; Encounter for screening mammogram for malignant neoplasm of breast; Vitamin D deficiency; Prediabetes 12/29/2024 9:20 AM CDT Lab [address] [address] Mixed hyperlipidemia; Primary hypertension; Hyperglycemia; Vitamin D deficiency; Palpitations 12/08/2024 2:33 PM CDT - 12/08/2024 11:59 PM CDT Hospital Encounter [address] [address] Rheumatoid arthritis 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) Discharge Disposition: Discharge to home or self care 12/08/2024 2:33 PM CDT - 12/08/2024 11:59 PM CDT Hospital Encounter [address] [address] Rheumatoid arthritis 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) Discharge Disposition: Discharge to home or self care 11/24/2024 9:30 AM CDT [facility] [address] [place] [address] [address] [place] [address] Rheumatoid arthritis of multiple sites without rheumatoid factor (HCC) (Primary Dx) 11/10/2024 Telephone [facility] Gastroenterology at [address] [place] [phone] Krissy Johnson GI Cancellation List from Last [...] on file Legal Sex Female 7:05 PM SUBSTITUTE BUS DRIVER Gender Identity Female 04/03/2020 10:14 AM SUBSTITUTE BUS DRIVER Sexual Orientation Straight 11/16/2023 2: 11 PM [...] Screening Discontinued Medical Devices Implanted Type Area Reconstructive Surgeon Device Identifier Shelf Expiration Date Model / Serial / Lot [employer] Jillian Contour Vl 6fr 22-30cm Taper Tip Bladder Albin Low Profile Stiff Latex Free [id number] - [id number] Implanted:Qty: 1 on 10/22/2022 by Rosanne Loza MD at [facility] Stent Left: Ureter [employer] Jillian [id number] 08/23/2026 [id number] / / [id number] Set Implant [employer] [place] Drill Guide Punch Tap Achilles Pack - [id number] Implanted:Qty: 1 on 07/16/2017 by Gracia Lang DPM at [facility] Left: Heel [employer] 10/19/2018 [id number] / / [id number] Procedures Procedure Name Priority Date/Time Associated Diagnosis [...] Read Routine (OP Routine) 01/31/2024 9:33 AM SUBSTITUTE BUS DRIVER Screening mammogram, encounter for HEPATITIS C RNA, QUANTITATIVE, PCR Routine 02/05/2023 10:13 AM SUBSTITUTE BUS DRIVER from Last 3 Months or Most Recently Relevant to Health Maintenance Results * (ABNORMAL) POCT urinalysis dipstick (01/17/2025 10:20 AM CDT) Color, Urine, POC [place] Clarity, ur, POC Cloudy(A) Clear Glucose, ur, POC Negative Negative Bilirubin, ur, POC Negative Negative Ketones, ur, POC Negative Negative Specific Mineral, POC 1.020 1.003 - 1.030 Blood, ur, POC Large(A) Negative pH, ur, POC 7.0 5.0 - 8.0 Protein, ur, POC 100.(A) Negative Urobilinogen, urine, POC 2.0(A) 0.2 - 1.0 mg/dL Nitrite, ur, POC Negative Negative Leukocytes, ur, POC Trace(A) Negative Lot Number [id number] Urine 01/17/2025 10:2 0 AM CDT Paula [...] BLOOD ORDERABLE S Final Result [facility] ([place]) 1 [facility] [place] [address] * Vitamin D 25 hydroxy (12/29/2024 9:35 AM CDT) Vitamin D 25-OH 35 30 - 80 ng/mL [facility] ([place]) Blood 12/29/2024 9:35 AM CDT 12/29/2024 10:14 AM CDT Lam Nicholson MD LAB BLOOD ORDERABLE S Final Result Performing Organization Address City/[facility] Co de Phone Number [facility] ([place]) 1 [facility] [place] [address] * Magnesium (12/29/2024 9:35 AM CDT) Magnesium 1.9 1.4 - 2.5 mg/dL [facility] ([place]) Blood 12/29/2024 9:35 AM CDT 12/29/2024 10:14 AM CDT Lam Nicholson MD LAB BLOOD ORDERABLE S Final Result Performing Organization Address City/[facility]/ZIP Co de Phone Number [facility] ([place]) 1 [facility] [place] [address] * (ABNORMAL) Hemoglobin A1c (12/29/2024 9:35 AM CDT) Hgb A1C 5.8(H) 4.0 - 5.6 % [facility] ([place]) Estimated Average Glucose 120 mg/dL [facility] ([place]) Comment: The ADA recommends reporting an estimated Average Glucose (eAG) with all Hemoglobin A1c results using the equation derived from a study of 507 normal and diabetic adults. Minority populations were underrepresented and children were not included. (Diabetes Care 31:3344-6454, 2008). The eAG is not equivalent to a fasting glucose. Testing performed by: [facility], [address] [facility], [place], [address] Blood 12/29/2024 9:35 AM CDT 12/29/2024 10:14 AM CDT us Lam Nicholson MD LAB BLOOD ORDERABLE S Final Result [facility] ([place]) 1 [facility] Department [place] [address] * (ABNORMAL) Lipid panel (12/29/2024 9:35 AM CDT) Cholesterol 177 30 - 199 mg/dL [facility] ([place]) Comment: Interpretive Data Ages < or = [...] LDL, calculated 99 <=129 mg/dL [facility] ([place]) Comment: Interpretive Data Ages < or = [...] last revised on 2023. Testing performed by: [facility], [facility], [place], [address] Non-HDL Cholesterol 127 mg/dL [facility] ([place]) Comment: Interpretive Data Ages < or = [...] last revised on 2017. Testing performed by: [facility], [facility], [place], [address] Chol/HDL ratio 4 [facility] ([place]) Comment:Testing performed by : [facility], [facility], [place], [address] Blood 12/29/2024 9:35 AM CDT 12/29/2024 10:14 AM CDT us Lam Nicholson MD LAB BLOOD ORDERABLE S Final Result [facility] ([place]) 1 [facility] Department [place] [address] * (ABNORMAL) Comprehensive metabolic panel (12/29/2024 9:35 [...] S Final Result [facility] ([place]) 1 [facility] Department [place] [address] * MRI Hand Left W WO Contrast [...] Willard Messer M.D. MF: LAINA Report ID: [id number] Reading Location: [id number] Procedure Note Willard Messer MD - 12/09/2024 [...] Willard Messer M.D. MF: LAINA Report ID: [id number] Reading Location: [id number] Laurence Carranza NP IMG MRI PROCEDURES Alisson [...] Willard Messer M.D. MF: LAINA Report ID: [id number] Reading Location: [id number] Procedure Note Willard Messer MD - 12/09/2024 [...] Willard Messer M.D. MF: LAINA Report ID: [id number] Reading Location: [id number] Laurence JasperMarilia Carranza SENIOR PARALEGAL IMG MRI PROCEDURES Alisson kiki Result * Screening Mammogram Bilateral W Turner (01/31/2024 9:33 AM SUBSTITUTE BUS DRIVER) Anatomical Region Laterality Modality Breast Bilateral Mammography 01/31/2024 11:1 0 AM SUBSTITUTE BUS DRIVER Impressions 01/31/2024 11:10 AM SUBSTITUTE BUS DRIVER No evidence of malignancy in either breast. Management of any palpable abnormality should be based on clinical grounds. FINAL ASSESSMENT: BI-RADS Category 1: Negative. RECOMMENDATION: Recommend return for annual screening mammogram in 12 months. Electronically signed by: Nicky Ramirez M.D. Narrative 01/31/2024 11:10 AM SUBSTITUTE BUS DRIVER EXAMINATION: BILATERAL SCREENING MAMMOGRAM COMPARISON: Multiple prior [...] RNA PCR, quantitative Blood (02/05/2023 10:13 AM SUBSTITUTE BUS DRIVER) HCV RNA result Not Detected [facility] ([facility]) Comment: The quantifiable range of this assay is 15 IU/mL to 100,000,000 IU/mL (1.18 log IU/mL to 8.00 log IU/mL). Testing was performed by the RIGO 6800 HCV Test ([employer] Testing performed at [facility] Current Interpretive Data was last revised on 2020 Testing performed by: [facility], 1 [place]., [address] Blood 02/05/2023 10:1 3 AM SUBSTITUTE BUS DRIVER 02/05/2023 5:52 PM SUBSTITUTE BUS DRIVER us Chema Smith MD LAB MICROBIOLOGY - GENERAL ORD ERABLES Final Result [facility] ([place]) 1 [facility] [place] [address] from Last 3 Months or Most Recently Relevant to Health Maintenance Insurance [place] [id number] [place] [id number] Advance Directives For more information, please contact: [phone] * Full Code (Latest Code Status on File) Date Activated Date Inactivated Comments 12/30/2018 1:41 AM 12/30/2018 10:46 PM * Full Code Date Activated Date Inactivated Comments 07/16/2017 3:40 PM 07/16/2017 6:30 PM Care Teams Magneto Specialist Relationship Specialty Start Date End Date Lam Nicholson MD [address] [facility] [address] [place] [address] PCP - General Family Practice 06/26/24 Paulino Souza MD Consulting Physician Cardiovascular Disease 10/24/22
== END 2025-01-17 19:24 | disposition home or self-care (01) ==
PROVIDERS: Family Medicine; Emergency Provider Registered Nurse; PCP Family Medicine
DX: N39.0 Urinary tract infection, site not specified (principal); N20.1 Calculus of ureter; R50.9 Fever, unspecified; E66.01 Morbid (severe) obesity due to excess calories; Z68.42 Body mass index [BMI] 45.0-49.9, adult; G47.33 Obstructive sleep apnea (adult) (pediatric); F17.210 Nicotine dependence, cigarettes, uncomplicated
CPT/HCPCS: 36415; 74177; 80053; 81001; 83605; 85025; 87086; 99284; Q9967